=== PATIENT | female | born 1965 | race Caucasian/White ===

== ENCOUNTER 2017-02-20 10:34 | Emergency (ER) | payer OTHER ==
[~2017-02-20] VITALS: Ht 160 cm; Wt 59.0 kg
[~2017-02-20 10:34] MED LIST: ALPR0.25 PO; AMLO5TAB4 PO; ATEN50TA PO; BSP10T; BSP10T PO; LEVO500T69 PO; LORA0.5T PO; LORA1TAB; LOSA100T28 PO; PNT40TEC PO; SCR1T1 PO
--- NOTE | 2017-02-20 11:15 | ED Integumentary General ---
General Chief Complaint: Skin/Wound Problems Stated Complaint: POSSIBLE SPIDER BITE Nursing Triage Note: AMB TO ROOM REPORTS ON SUNDAY WOKE UP SPIDER ON CHEST THOUGHT IT TO BE N A BROWN RECLUSE SPIDER KNOCKED IT OFF HER CHEST. SUNDAY FELT LIKE L EYE HAD A STYE IN IT . TODAY WOKE UP NOT FEELING WELL WITH BODY ACHES,DIARHEA, INCREASE SWELLING IN EYE. Source: patient Exam Limitations: no limitations History of Present Illness Time seen by provider: 11:15 Initial Comments 51 yo female patient presents to the ED with c/o left eye swelling, redness, and pain beginning yesterday. Patient states she woke up sunday with a spider on her chest. today awoke with generalized body aches, diarrhea, low grade fever, and increased swelling of the left eye. Location Injury Occurred: denies known injury Timing/Duration: yesterday, getting worse Location: face (left eye) Possible Cause: no cause identified ((had a spider on her chest Sunday, but unsure if she was bitten)) Modifying Factors: worse with other (worse with palpation) Associated Symptoms: No blisters, No edema, fever, No flushing, headache, No hives, No jaundice, malaise, No nasal congestion, No numbness, No paresthesia, No petechiae, No rash, swelling/mass/lumps (swelling left eyelid) Allergies and Home Medications Allergies Coded Allergies: erythromycin base (Unverified Allergy, Mild, 03/23/09) Sulfa (Sulfonamide Antibiotics) (Verified Allergy, Unknown, 06/30/16) Home Medications Alprazolam 0.25 Mg Tablet, 0.25 MG PO QID PRN for ANXIETY, #10 Prescribed by: HAWA HOGN on 06/30/16 1146 Atenolol 50 Mg Tablet, 50 MG PO DAILY, (Reported) Losartan Potassium 100 Mg Tablet, 100 MG PO BID, (Reported) Ondansetron 8 Mg Tab.rapdis, 8 MG PO Q6H PRN for NAUSEA/VOMITING-1ST LINE, #10 Ref 0 Prescribed by: CHERRIE MOREL on 02/20/17 1325 Sulfamethoxazole/Trimethoprim 1 Each Tablet, 1 EACH PO BID, #14 Ref 0 Prescribed by: CHERRIE MOREL on 02/20/17 1510 Constitutional: chills, dizziness, fever, malaise, weakness (generalized fatigue/weakness) EENTM: eye pain (left eyelid), other (matted left eye this AM), see HPI, No ear pain, No mouth pain, No mouth swelling, No nose congestion, No throat pain, No throat swelling, No vision loss Respiratory: No cough, No phlegm, No short of breath Cardiovascular: no symptoms reported Gastrointestinal: No abdominal pain, No constipation, diarrhea, No jaundice, loss of appetite, No nausea, No vomiting Genitourinary: No decreased output, No dysuria, No frequency, No hematuria, No pain Musculoskeletal: No joint pain, muscle pain ((has had 2 months of upper extremity muscle aches)), No neck pain Skin: see HPI Psychiatric/Neurological: See HPI All Other Systems Reviewed Negative Unless Noted: Yes (Negative excepted noted.) Past [id number] Hx Patient Social History Alcohol Use: Occasionally Uses Recreational Drug Use: No Smoking Status: Current Everyday Smoker Recent Foreign Travel: No Contact w/Someone Who Travel: No Recent Infectious Disease Expo: No Recent Hopitalizations: Yes (lap appy, lap choley, Aneurysm repair) Surgeries HX Surgeries: Yes (Aneurysm repair) Surgeries: Adenoidectomy, Appendectomy, Gallbladder, Hysterectomy, Tonsillectomy, Vascular Surgery Respiratory Hx Respiratory Disorders: No Cardiovascular Hx Cardiac Disorders: Yes (AAA) Cardiac Disorders: Aneurysm, Hypertension Neurological Hx Neurological Disorders: No Reproductive System Hx Reproductive Disorders: No Genitourinary Hx Genitourinary Disorders: No Gastrointestinal Hx Gastrointestinal Disorders: No Musculoskeletal Hx Musculoskeletal Disorders: No Endocrine Hx Endocrine Disorders: No HEENT HX ENT Disorders: No Cancer Hx Cancer: No Psychosocial Hx Psychiatric Problems: Yes (alcohol dependence, anxiety) Behavioral Health Disorders: Anxiety Blood Transfusions Hx Blood Disorders: No Reviewed Nursing Assessment Reviewed/Agree w Nursing PMH: Yes Family Medical History Significant Family History: Cancer Physical Exam Vital Signs Vital Sign - Last 12Hours 02/20/17 10:50 Temp 99.0 Pulse 86 Resp 18 B/P (MAP) 176/111 Pulse Ox 98 O2 Delivery Room Air Capillary Refill : Greater Than 3 Seconds General Appearance: WD/WN, no apparent distress HEENT: PERRL/EOMI, pharynx normal, other (left upper lid swollen with mild erythema and tenderness.) Neck: non-tender, full range of motion, supple, normal inspection Cardiovascular: normal peripheral pulses, regular rate, rhythm, no edema, no murmur Respiratory: lungs clear, normal breath sounds, no respiratory distress Gastrointestinal: normal bowel sounds, non tender, soft, no organomegaly, No distended Back: normal inspection Extremities: no pedal edema, normal capillary refill Neurologic/Psychiatric: alert, normal mood/affect, oriented x 3 Skin: normal color, warm/dry, other (left upper lid swollen with mild erythema and tenderness.) Skin Problem Location: other (left upper lid) Skin Problem Character: erythema, swelling, tenderness Progress/Results/Core Measures Results/Orders Lab Results Laboratory Tests Test 02/20/17 12:10 02/20/17 14:22 Range/Units White Blood Count 9.4 4.3-11.0 10^3/uL Red Blood Count 5.59 4.35-5.85 10^6/uL Hemoglobin 17.0 H 11.5-16.0 G/DL Hematocrit 50 35-52 % Mean Corpuscular Volume 90 80-99 FL Mean Corpuscular Hemoglobin 30 25-34 PG Mean Corpuscular Hemoglobin Concent 34 32-36 G/DL Red Cell Distribution Width 14.2 10.0-14.5 % Platelet Count 259 130-400 10^3/uL Mean Platelet Volume 10.0 7.4-10.4 FL Neutrophils (%) (Auto) 71 42-75 % Lymphocytes (%) (Auto) 21 12-44 % Monocytes (%) (Auto) 6 0-12 % Eosinophils (%) (Auto) 1 0-10 % Basophils (%) (Auto) 1 0-10 % Neutrophils # (Auto) 6.7 1.8-7.8 X 10^3 Lymphocytes # (Auto) 2.0 1.0-4.0 X 10^3 Monocytes # (Auto) 0.6 0.0-1.0 X 10^3 Eosinophils # (Auto) 0.1 0.0-0.3 10^3/uL Basophils # (Auto) 0.1 0.0-0.1 10^3/uL Erythrocyte Sedimentation Rate 1 0-30 MM/HR Urine Color YELLOW Urine Clarity SLIGHTLY CLOUDY Urine pH 7 5-9 Urine Specific [place] 1.010 L 1.016-1.022 Urine Protein NEGATIVE NEGATIVE Urine Glucose (UA) NEGATIVE NEGATIVE Urine Ketones NEGATIVE NEGATIVE Urine Nitrite NEGATIVE NEGATIVE Urine Bilirubin NEGATIVE NEGATIVE Urine Urobilinogen NORMAL NORMAL MG/DL Urine Leukocyte Esterase NEGATIVE NEGATIVE Urine RBC (Auto) NEGATIVE NEGATIVE Urine RBC NONE /HPF Urine WBC NONE /HPF Urine Squamous Epithelial Cells 5-10 /HPF Urine Crystals NONE /LPF Urine Bacteria TRACE /HPF Urine Casts NONE /LPF Urine Mucus NEGATIVE /LPF Urine Culture Indicated NO Sodium Level 140 135-145 MMOL/L Potassium Level 4.4 3.6-5.0 MMOL/L Chloride Level 105 98-107 MMOL/L Carbon Dioxide Level 29 21-32 MMOL/L Anion Gap 6 5-14 MMOL/L Blood Urea Nitrogen 9 7-18 MG/DL Creatinine 0.78 0.60-1.30 MG/DL Estimat Glomerular Filtration Rate > 60 BUN/Creatinine Ratio 12 0-20 Glucose Level 110 H 70-105 MG/DL Calcium Level 9.9 8.5-10.1 MG/DL Total Bilirubin 0.8 0.1-1.0 MG/DL Aspartate Amino Transf (AST/SGOT) 18 5-34 U/L Alanine Aminotransferase (ALT/SGPT) 18 0-55 U/L Alkaline Phosphatase 178 H 40-136 U/L C-Reactive Protein High Sensitivity 0.11 0.00-0.50 MG/DL Total Protein 7.6 6.4-8.2 GM/DL Albumin 4.9 H 3.2-4.5 GM/DL Prothrombin Time 12.1 L 12.2-14.7 SEC INR Comment 0.9 0.8-1.4 Activated Partial Thromboplast Time 27 24-35 SEC Magnesium Level 2.2 1.8-2.4 MG/DL Myoglobin 32.3 10.0-92.0 NG/ML Troponin I < 0.30 <0.30 NG/ML My Orders Orders - CHERRIE MOREL Saline Lock/Iv-Start (02/20/17 11:21) Cbc With Automated Diff (02/20/17 11:21) Comprehensive Metabolic Panel (02/20/17 11:21) Hs C Reactive Protein (02/20/17 11:21) Ua Culture If Indicated (02/20/17 11:21) Erythrocyte Sedimentation Rate (02/20/17 11:21) Ns Iv 1000 Ml (Sodium Chloride 0.9%) (02/20/17 11:21) Ketorolac Injection (Toradol Injection) (02/20/17 11:21) Dipht,Pertuss(Acell),Tet Adult (Boostrix (02/20/17 11:35) Morphine Injection (Morphine Injection (02/20/17 12:46) Clindamycin Injection (Cleocin Injection (02/20/17 13:00) Ondansetron Injection (Zofran Injectio (02/20/17 13:30) Magnesium (02/20/17 13:56) Chest 1 View, Ap/Pa Only (02/20/17 13:56) Ekg Tracing (02/20/17 13:56) Cardiac Profile 1 (02/20/17 13:56) Myoglobin Serum (02/20/17 13:56) Protime With Inr (02/20/17 13:56) Partial Thromboplastin Time (02/20/17 13:56) Monitor-Rhythm Ecg Trace Only (02/20/17 13:56) Rx-Gentamicin Ophth Soln (Rx-Gentamicin (02/20/17 15:17) Medications Given in ED Current Medications Medications Dose Ordered Sig/Brigid Route Start Time Stop Time Status Last Admin Dose Admin Clindamycin Phosphate 900 mg/ Sodium Chloride 56 ml @ 100 mls/hr ONCE ONCE IV 02/20/17 13:00 02/20/17 13:33 DC 02/20/17 13:00 100 MLS/HR Ondansetron HCl 8 mg ONCE ONCE IVP 02/20/17 13:30 02/20/17 13:31 DC 02/20/17 13:30 8 MG Sodium Chloride 1,000 ml @ 0 mls/hr Q0M ONCE IV 02/20/17 11:21 02/20/17 11:24 DC 02/20/17 12:10 1,000 MLS/HR Vital Signs/I&O Vital Sign - Last 12Hours 02/20/17 10:50 Temp 99.0 Pulse 86 Resp 18 B/P (MAP) 176/111 Pulse Ox 98 O2 Delivery Room Air Blood Pressure Mean: 132 ECG Initial ECG Impression Date: Feb 20, 2017 Initial ECG Impression Time: 13:35 Initial ECG Rhythm: Normal Sinus Initial ECG Intervals: Normal Initial ECG Comparisson: Unchanged Comment Sinus rhythm. No STEMI or arrhythmia. ECG reviewed and discussed with Dr. Cruz. Diagnostic Imaging Diagonstic Imaging: Xray Plain Films/CT/US/NM/MRI: chest Comments FINDINGS: The lungs are hyperinflated with mild interstitial scarring, more prominent in the lung bases. This is similar to the 03/03/2016 radiograph. The heart size is at the upper limits of normal. No effusion or pneumothorax. The mediastinum and angelito appear unremarkable. IMPRESSION: COPD. Borderline cardiac size. Dictated on workstation # [id number] Reviewed: Reviewed by Me (radiology report reviewed by me.) Departure Communication Progress Notes laboratory findings discussed with the patient. Patient states her headache is now a 4/10 and would like something else for her headache. Patient given morphine 6 mg IV and cleocin 900 mg IV for the left eyelid. While the cleocin was infusing, the patient began c/o epigastric pain, nausea, and mild heartburn. Pain then radiated into the chest. Patient was noted to start hyperventilating and anxious. ECG, CXR and cardiac enzymes were obtained. Patient was able to vomit and burp with immediate resolution of symptoms. Patient case discussed with Dr[facility] Rosalba Jean [facility]u [facility] an outpatient at [facility]. Patient instructed to contact the office for appointment time. All return precautions were discussed with the patient as described in the [facility] instructions of this report. Patient voices understanding and agrees with the treatment plan. Patient case discussed with Dr. Cruz, he agrees with the plan of care. Impression Impression: Primary Impression: Diarrhea Qualified Codes: R19.7 - Diarrhea, unspecified Additional Impressions: Sty, external Qualified Codes: H00.014 - Hordeolum externum left upper eyelid Adverse drug reaction Qualified Codes: T88.7XXA - Unspecified adverse effect of drug or medicament, initial encounter Disposition: HOME, SELF-CARE Condition: Improved Departure-Patient Inst. Decision time for Depature: 12:50 Referrals: NO,LOCAL PHYSICIAN (PCP/Family) Primary Care Physician Patient Instructions: Spider Bites, Stye (Hordeolum) Add. Discharge Instructions: All discharge instructions reviewed with patient and/or family. Voiced understanding. Medications as instructed. Tylenol extra strength over the counter as directed for pain. Motrin 800 mg by mouth every 8 hours as needed for pain. Ice packs or warm packs as needed. Cleanse the eye with no tears baby shampoo and a clean warm cloth twice daily and as needed. Follow-up with your family practitioner for recheck. Call for appointment time. Return to the emergency department for increased fever, swelling, vomiting, rectal bleeding, abdominal pain, headache, shortness of breath, difficulty swallowing, or any other concerns. 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
[2017-02-20] MEDS ORDERED: KETOROLAC 30 MG/ML VIAL IVP STA (11:21)
[2017-02-20] MEDS ORDERED: NS IV 1000 ML 1,000 ML IV ONE (11:21)
[2017-02-20] MEDS ORDERED: TETANUS,DIPTH,PERTUSS P/F (BOOSTRIX) 0.5 ML VIAL IM STA (11:35)
[2017-02-20 12:22] LABS: BILIRUBIN,URINE NEGATIVE (NEGATIVE); KETONES,URINE NEGATIVE (NEGATIVE); LEUKOCYTE ESTERASE ,URINE NEGATIVE (NEGATIVE); NITRITE,URINE NEGATIVE (NEGATIVE); PH,URINE 7 (5-9); PROTEIN,URINE NEGATIVE (NEGATIVE); UROBILINOGEN,URINE NORMAL (NORMAL)
[2017-02-20 12:23] LABS: BASOPHILS # (AUTO) 0.1 10^3/uL (0.0-0.1); BASOPHILS % (AUTO) 1 % (0-10); EOSINOPHILS # (AUTO) 0.1 10^3/uL (0.0-0.3); EOSINOPHILS % (AUTO) 1 % (0-10); LYMPHOCYTES % (AUTO) 21 % (12-44); MEAN CORPUSCULAR HEMOGLOBIN 30 PG (25-34); MEAN CORPUSCULAR HGB CONC 34 G/DL (32-36); MEAN CORPUSCULAR VOLUME 90 FL (80-99); MONOCYTES # (AUTO) 0.6 X 10^3 (0.0-1.0); MONOCYTES % (AUTO) 6 % (0-12); NEUTROPHILS # (AUTO) 6.7 X 10^3 (1.8-7.8); NEUTROPHILS % (AUTO) 71 % (42-75); PLATELET COUNT 259 10^3/uL (130-400); RED BLOOD COUNT 5.59 10^6/uL (4.35-5.85); RED CELL DISTRIBUTION WIDTH 14.2 % (10.0-14.5); WHITE BLOOD COUNT 9.4 10^3/uL (4.3-11.0)
[2017-02-20 12:42] LABS: ALANINE AMINOTRANSFERASE 18 U/L (0-55); ALBUMIN 4.9 GM/DL (3.2-4.5); ANION GAP 6 MMOL/L (5-14); ASPARTATE AMINO TRANSFERASE 18 U/L (5-34); BILIRUBIN,TOTAL 0.8 MG/DL (0.1-1.0); BLOOD UREA NITROGEN 9 MG/DL (7-18); BUN/CREATININE RATIO 12 (0-20); CALCIUM 9.9 MG/DL (8.5-10.1); CARBON DIOXIDE 29 MMOL/L (21-32); CHLORIDE 105 MMOL/L (98-107); CREATININE SERUM 0.78 MG/DL (0.60-1.30); ERYTHROCYTE SEDIMENTATION RATE 1 MM/HR (0-30); GFR ESTIMATED > 60; GLUCOSE 110 MG/DL (70-105); POTASSIUM 4.4 MMOL/L (3.6-5.0); SODIUM 140 MMOL/L (135-145); TOTAL PROTEIN 7.6 GM/DL (6.4-8.2)
[2017-02-20 12:43] LABS: hs C REACTIVE PROTEIN 0.11 MG/DL (0.00-0.50)
[2017-02-20] MEDS ORDERED: morphine INJ 10 MG/ML 1ML (SYR OR VIAL) IVP STA (12:46)
[2017-02-20] MEDS ORDERED: CLIN300C11 PO (12:55)
[2017-02-20] MEDS ORDERED: CLINDAMYCIN INJECTION 900 MG in NS (IVPB) 50 ML IV ONE (13:00)
[2017-02-20] MEDS ORDERED: ONDA8TAB13 PO (13:25)
[2017-02-20] MEDS ORDERED: ONDANSETRON 4 MG/2 ML (SDV) Z0FRAN IVP ONE (13:30)
--- NOTE | 2017-02-20 14:32 | Diagnostic Imaging Report ---
EXAMINATION: Portable upright radiograph of the chest. INDICATION: Chest pain. FINDINGS: The lungs are hyperinflated with mild interstitial scarring, more prominent in the lung bases. This is similar to the 03/03/2016 radiograph. The heart size is at the upper limits of normal. No effusion or pneumothorax. The mediastinum and angelito appear unremarkable. IMPRESSION: COPD. Borderline cardiac size. Dictated by: Dictated on workstation # [id number]
[2017-02-20 14:40] LABS: INR 0.9 (0.8-1.4); PROTHROMBIN TIME PATIENT 12.1 SEC (12.2-14.7)
[2017-02-20 14:42] LABS: MAGNESIUM 2.2 MG/DL (1.8-2.4)
[2017-02-20 14:55] LABS: MYOGLOBIN SERUM 32.3 NG/ML (10.0-92.0)
[2017-02-20] MEDS ORDERED: SULF1TAB35 PO (15:10)
[2017-02-20] MEDS ORDERED: RX-GENTAMICIN SULFATE 0.3% OP 5 ML BTL OS STA (15:17)
[2017-02-20 15:28] VITALS: BP 146/98
== END 2017-02-20 15:28 | disposition home or self-care (01) ==
LOC: EDUNIT# 10:34 → ER 10:36
DX: H00.014 Hordeolum externum left upper eyelid (principal); T50.905A Adverse effect of unspecified drugs, medicaments and biological substances, initial encounter; R19.7 Diarrhea, unspecified; I10 Essential (primary) hypertension; F17.210 Nicotine dependence, cigarettes, uncomplicated
CPT/HCPCS: 36415; 71010; 80053; 81000; 83735; 83874; 84484; 85025; 85610; 85652; 85730; 86141; 90715; 93005; 93041

== ENCOUNTER → 2017-05-15 | Outpatient (CLI) | payer OTHER ==
[~2017-05-15] MED LIST changes: +CLIN300C11 PO; +ONDA8TAB13 PO; +SULF1TAB35 PO
--- NOTE | 2017-05-15 12:53 | Diagnostic Imaging Report ---
INDICATION: Screening. The current study was also evaluated with a Computer Aided Detection (CAD) system. COMPARISON: No prior examinations are available for comparison. FINDINGS: There is a moderate amount of residual fibroglandular tissue bilaterally. There are a few benign-type calcifications. There is no dominant mass, spiculated lesion, or suspicious calcification identified. The skin, nipples, and axillae are unremarkable. IMPRESSION: Benign. ACR BI-RADS Category 2: Benign findings. Result letter will be mailed to the patient. Note: At least 10% of breast cancer is not imaged by mammography. Dictated by: Dictated on workstation # [id number]
== END ==
LOC: RAD 11:28
PROVIDERS: ATTEND Nurse Practitioner Family
DX: Z12.31 Encounter for screening mammogram for malignant neoplasm of breast (principal)
CPT/HCPCS: 77067

== ENCOUNTER 2017-08-31 18:25 | Emergency (ER) | payer SELFPAY ==
[~2017-08-31] VITALS: Ht 160 cm; Wt 62.3 kg
[2017-08-31 18:45] LABS: BASOPHILS # (AUTO) 0.1 10^3/uL (0.0-0.1); BASOPHILS % (AUTO) 1 % (0-10); EOSINOPHILS # (AUTO) 0.1 10^3/uL (0.0-0.3); EOSINOPHILS % (AUTO) 1 % (0-10); LYMPHOCYTES # (AUTO) 2.4 X 10^3 (1.0-4.0); LYMPHOCYTES % (AUTO) 23 % (12-44); MEAN CORPUSCULAR HEMOGLOBIN 33 PG (25-34); MEAN CORPUSCULAR HGB CONC 35 G/DL (32-36); MEAN CORPUSCULAR VOLUME 93 FL (80-99); MEAN PLATELET VOLUME 9.4 FL (7.4-10.4); MONOCYTES # (AUTO) 0.8 X 10^3 (0.0-1.0); MONOCYTES % (AUTO) 8 % (0-12); NEUTROPHILS % (AUTO) 67 % (42-75); PLATELET COUNT 261 10^3/uL (130-400); RED BLOOD COUNT 4.99 10^6/uL (4.35-5.85); RED CELL DISTRIBUTION WIDTH 13.9 % (10.0-14.5); WHITE BLOOD COUNT 10.4 10^3/uL (4.3-11.0)
[2017-08-31 18:56] LABS: INR 0.9 (0.8-1.4); PROTHROMBIN TIME PATIENT 12.6 SEC (12.2-14.7)
[2017-08-31 19:09] LABS: ALANINE AMINOTRANSFERASE 30 U/L (0-55); ALBUMIN 4.7 GM/DL (3.2-4.5); ANION GAP 17 MMOL/L (5-14); ASPARTATE AMINO TRANSFERASE 28 U/L (5-34); BILIRUBIN,TOTAL 0.6 MG/DL (0.1-1.0); BLOOD UREA NITROGEN 16 MG/DL (7-18); BUN/CREATININE RATIO 21; CALCIUM 9.5 MG/DL (8.5-10.1); CARBON DIOXIDE 16 MMOL/L (21-32); CHLORIDE 101 MMOL/L (98-107); CREATININE SERUM 0.76 MG/DL (0.60-1.30); GFR ESTIMATED > 60; GLUCOSE 104 MG/DL (70-105); MAGNESIUM 2.1 MG/DL (1.8-2.4); POTASSIUM 3.6 MMOL/L (3.6-5.0); SODIUM 134 MMOL/L (135-145); TOTAL PROTEIN 7.4 GM/DL (6.4-8.2)
--- NOTE | 2017-08-31 19:12 | Diagnostic Imaging Report ---
INDICATION: Fall, chest pain. COMPARISON: 02/20/2017. EXAMINATION: Single view of the chest demonstrates clear lungs, bilaterally. FINDINGS: The heart is prominent but stable. There is no pneumothorax, effusion or infiltrate. Osseous structures are normal. IMPRESSION: No acute cardiopulmonary findings. Dictated by: Dictated on workstation # [id number]
--- NOTE | 2017-08-31 19:13 | Diagnostic Imaging Report ---
PROCEDURE: CT thoracic spine without contrast. TECHNIQUE: Multiple axial computerized tomography images were obtained from the base of the thoracic spine to the vertex without intravenous contrast. INDICATION: Fall, back pain COMPARISON: None FINDINGS: The alignment is normal. There is no subluxation or fracture. Visualized ribs are grossly unremarkable. There is no pneumothorax. No paraspinous mass is identified. IMPRESSION: No traumatic malalignment or fracture. Dictated by: Dictated on workstation # [id number]
--- NOTE | 2017-08-31 19:15 | Diagnostic Imaging Report ---
PROCEDURE: CT head and CT cervical spine without contrast. TECHNIQUE: Multiple contiguous axial images were obtained through the brain and cervical spine without the use of intravenous contrast. Sagittal and coronal reformations through the cervical spine were then performed. INDICATION: Fall, head and neck pain COMPARISON: CT head 03/03/2016 CT head: Ventricles are normal in size, shape, and position. There is no midline shift or mass effect. There is no hemorrhage or evidence of acute ischemia. There is no skull fracture. Visualized paranasal sinuses and mastoids are clear. IMPRESSION: Negative CT head. CT cervical spine: Alignment is normal. There is no subluxation or fracture. Minimal degenerative changes are present. There is no paraspinous mass. IMPRESSION: 1. No traumatic malalignment or fracture. 2. Not mentioned above, right thyroid cyst. This could be further evaluated with ultrasound on a nonemergent basis. Dictated by: Dictated on workstation # [id number]
[2017-08-31 19:16] LABS: MYOGLOBIN SERUM 225.3 NG/ML (10.0-92.0)
--- NOTE | 2017-08-31 19:20 | ED Syncope ---
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 She remembers sitting on the couch with her cat when she became lightheaded and experienced racing heart palpitations. She then awoke on the kitchen floor but has no recollection of how she got there. She woke with upper back and neck pain. EMS was activated to the home. After waking she had heavy vomiting. She is no longer nauseous. She denies any chest pain at any time. She has been alert and oriented for EMS. First responders reported fingerstick blood sugar was 47. However, she was alert and oriented. She was immediately checked again after receiving oral glucose and was 147. First responders questioned their accuracy in the first measurement. Patient is not a diabetic. Fingerstick blood sugar on arrival was 112. Patient reports drinking 1 and 1/2 beers tonight which is usual for her. She is accustomed to drinking 2-4 beers per day. She has hypertension for which she takes atenolol and losartan. She has no other known health problems. She reports having one episode of syncope in 2010 after which she had a cardiac catheterization. 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 That study showed no significant abnormalities. C-collar was applied by emergency personnel. Allergies and Home Medications Allergies Coded Allergies: erythromycin base (Unverified Allergy, Mild, 03/23/09) Sulfa (Sulfonamide Antibiotics) (Verified Allergy, Unknown, 06/30/16) Home Medications Alprazolam 0.25 Mg Tablet, 0.25 MG PO QID PRN for ANXIETY, #10 Prescribed by: HAWA HONG on 06/30/16 1146 Atenolol 50 Mg Tablet, 50 MG PO DAILY, (Reported) Cephalexin 500 Mg Capsule, 500 MG PO QID, #28 Prescribed by: HAWA HONG on 08/31/172057 Losartan Potassium 100 Mg Tablet, 100 MG PO BID, (Reported) Ondansetron 8 Mg Tab.rapdis, 8 MG PO Q6H PRN for NAUSEA/VOMITING-1ST LINE, #10 Ref 0 Prescribed by: CHERRIE MOREL on 02/20/17 1325 Sulfamethoxazole/Trimethoprim 1 Each Tablet, 1 EACH PO BID, #14 Ref 0 Prescribed by: CHERRIE MOREL on 02/20/17 1510 Constitutional: no symptoms reported EENTM: see HPI Respiratory: no symptoms reported Cardiovascular: see HPI Gastrointestinal: see HPI Genitourinary: no symptoms reported : No Musculoskeletal: see HPI Skin: no symptoms reported Psychiatric/Neurological: No Symptoms Reported Past Ynnwmke-Zpcyvm-Mbbpov Hx Patient Social History Alcohol Use: Occasionally Uses Number of Drinks Today: AA Alcohol Beverage of Choice: Beer Recreational Drug Use: No Smoking Status: Current Everyday Smoker Type Used: Cigarettes Recent Foreign Travel: No Contact w/Someone Who Travel: No Recent Infectious Disease Expo: No Recent Hopitalizations: Yes (lap appy, lap choley, Aneurysm repair) Physical Abuse: No Sexual Abuse: No Surgeries History of Surgeries: Yes (Aneurysm repair) Surgeries: Adenoidectomy, Appendectomy, Gallbladder, Hysterectomy, Tonsillectomy, Vascular Surgery Respiratory History of Respiratory Disorde: No Cardiovascular History of Cardiac Disorders: Yes (AAA) Cardiac Disorders: Aneurysm, Hypertension, Syncope Neurological History of Neurological Disord: No Reproductive System Hx Reproductive Disorders: No Genitourinary History of Genitourinary Disor: No Gastrointestinal History of Gastrointestinal Di: No Musculoskeletal History of Musculoskeletal Dis: No Endocrine History of Endocrine Disorders: No HEENT History of HEENT Disorders: No Cancer History of Cancer: No Psychosocial History of Psychiatric Problem: Yes (alcohol dependence, anxiety) Behavioral Health Disorders: Anxiety Suicide Risk Score: 0 Blood Transfusions History of Blood Disorders: No Family Medical History Significant Family History: Cancer Physical Exam Vital Signs Vital Sign - Last 12Hours 08/31/17 08/31/17 18:28 21:24 Temp 97.4 Pulse 72 Resp 24 B/P (MAP) 141/91 (108) Pulse Ox 93 O2 Delivery Room Air Capillary Refill : Less Than 3 Seconds General Appearance: No Apparent Distress, WD/WN HEENT: PERRL/EOMI, Normal ENT Inspection, Pharynx Normal Neck: Normal Inspection, Non Tender, Supple, Other (In c-collar) Cardiovascular: Regular Rate, Rhythm, No Edema, No Murmur, Normal Peripheral Pulses Respiratory: Lungs Clear, Normal Breath Sounds, No Accessory Muscle Use, No Respiratory Distress Gastrointestinal: Normal Bowel Sounds, No Pulsatile Mass, Non Tender, Soft Back: Normal Inspection, Vertebral Tenderness (Thoracic spine) Extremities: Normal Capillary Refill, Normal Inspection, No Pedal Edema Neurologic/Psychiatric: Alert, Oriented x3, No Motor/Sensory Deficits, Normal 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, 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 as 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 Cranial Nerves: Normal Hearing, Normal Speech, PERRL Motor/Sensory: No Motor Deficit, No Sensory Deficit Skin: Normal Color, Warm/Dry Progress/Results/Core Measures Results/Orders Lab Results Laboratory Tests Test 08/31/17 18:30 08/31/17 18:33 08/31/17 19:30 Range/Units Glucometer 112 H 70-110 MG/DL White Blood Count 10.4 4.3-11.0 10^3/uL Red Blood Count 4.99 4.35-5.85 10^6/uL Hemoglobin 16.3 H 11.5-16.0 G/DL Hematocrit 46 35-52 % Mean Corpuscular Volume 93 80-99 FL Mean Corpuscular Hemoglobin 33 25-34 PG Mean Corpuscular Hemoglobin Concent 35 32-36 G/DL Red Cell Distribution Width 13.9 10.0-14.5 % Platelet Count 261 130-400 10^3/uL Mean Platelet Volume 9.4 7.4-10.4 FL Neutrophils (%) (Auto) 67 42-75 % Lymphocytes (%) (Auto) 23 12-44 % Monocytes (%) (Auto) 8 0-12 % Eosinophils (%) (Auto) 1 0-10 % Basophils (%) (Auto) 1 0-10 % Neutrophils # (Auto) 7.0 1.8-7.8 X 10^3 Lymphocytes # (Auto) 2.4 1.0-4.0 X 10^3 Monocytes # (Auto) 0.8 0.0-1.0 X 10^3 Eosinophils # (Auto) 0.1 0.0-0.3 10^3/uL Basophils # (Auto) 0.1 0.0-0.1 10^3/uL Prothrombin Time 12.6 12.2-14.7 SEC INR Comment 0.9 0.8-1.4 Activated Partial Thromboplast Time 27 24-35 SEC Sodium Level 134 L 135-145 MMOL/L Potassium Level 3.6 3.6-5.0 MMOL/L Chloride Level 101 98-107 MMOL/L Carbon Dioxide Level 16 L 21-32 MMOL/L Anion Gap 17 H 5-14 MMOL/L Blood Urea Nitrogen 16 7-18 MG/DL Creatinine 0.76 0.60-1.30 MG/DL Estimat Glomerular Filtration Rate > 60 BUN/Creatinine Ratio 21 Glucose Level 104 70-105 MG/DL Calcium Level 9.5 8.5-10.1 MG/DL Magnesium Level 2.1 1.8-2.4 MG/DL Total Bilirubin 0.6 0.1-1.0 MG/DL Aspartate Amino Transf (AST/SGOT) 28 5-34 U/L Alanine Aminotransferase (ALT/SGPT) 30 0-55 U/L Alkaline Phosphatase 152 H 40-136 U/L Myoglobin 225.3 H 10.0-92.0 NG/ML Troponin I < 0.30 <0.30 NG/ML Total Protein 7.4 6.4-8.2 GM/DL Albumin 4.7 H 3.2-4.5 GM/DL TSH [place] Testing 1.78 0.35-4.94 UIU/ML Serum Alcohol 19 H <10 MG/DL Urine Color YELLOW Urine Clarity CLEAR Urine pH 6 5-9 Urine Specific [place] 1.015 L 1.016-1.022 Urine Protein 1+ H NEGATIVE Urine Glucose (UA) NEGATIVE NEGATIVE Urine Ketones NEGATIVE NEGATIVE Urine Nitrite NEGATIVE NEGATIVE Urine Bilirubin NEGATIVE NEGATIVE Urine Urobilinogen NORMAL NORMAL MG/DL Urine Leukocyte Esterase 1+ H NEGATIVE Urine RBC (Auto) NEGATIVE NEGATIVE Urine RBC NONE /HPF Urine WBC 10-25 H /HPF Urine Squamous Epithelial Cells 5-10 /HPF Urine Crystals NONE /LPF Urine Bacteria FEW H /HPF Urine Casts PRESENT /LPF Urine Hyaline Casts 10-25 H /LPF Urine Mucus SMALL H /LPF Urine Culture Indicated YES Urine Opiates Screen NEGATIVE NEGATIVE Urine Oxycodone Screen NEGATIVE NEGATIVE Urine Methadone Screen NEGATIVE NEGATIVE Urine Propoxyphene Screen NEGATIVE NEGATIVE Urine Barbiturates Screen NEGATIVE NEGATIVE Ur Tricyclic Antidepressants Screen NEGATIVE NEGATIVE Urine Phencyclidine Screen NEGATIVE NEGATIVE Urine Amphetamines Screen NEGATIVE NEGATIVE Urine Methamphetamines Screen NEGATIVE NEGATIVE Urine Benzodiazepines Screen NEGATIVE NEGATIVE Urine Cocaine Screen NEGATIVE NEGATIVE Urine Cannabinoids Screen POSITIVE H NEGATIVE My Orders Orders - HAWA LU MD Ct Head/Cervical Spine Wo (08/31/17 18:40) Ct Thoracic Spine Wo (08/31/17 18:40) Cbc With Automated Diff (08/31/17 18:40) Magnesium (08/31/17 18:40) Chest 1 View, Ap/Pa Only (08/31/17 18:40) Ekg Tracing (08/31/17 18:40) Cardiac Profile 1 (08/31/17 18:40) Comprehensive Metabolic Panel (08/31/17 18:40) Myoglobin Serum (08/31/17 18:40) Protime With Inr (08/31/17 18:40) Partial Thromboplastin Time (08/31/17 18:40) O2 (08/31/17 18:40) Monitor-Rhythm Ecg Trace Only (08/31/17 18:40) Saline Lock/Iv-Start (08/31/17 18:40) Alcohol (08/31/17 18:40) Drug Screen Stat (Urine) (08/31/17 18:40) Thyroid Analyzer (08/31/17 18:40) Ua Culture If Indicated (08/31/17 18:40) Ketorolac Injection (Toradol Injection) (08/31/17 19:30) Orphenadrine Injection (Norflex Injectio (08/31/17 19:30) Urine Culture (08/31/17 19:30) Ns Iv 1000 Ml (Sodium Chloride 0.9%) (08/31/17 20:03) Cephalexin Capsule (Keflex Capsule) (08/31/17 21:00) Medications Given in ED Vital Signs/I&O Vital Sign - Last 12Hours 08/31/17 08/31/17 08/31/17 18:28 20:20 21:24 Temp 97.4 97.3 Pulse 72 62 67 61 63 Resp 24 18 B/P (MAP) 141/91 (108) 138/75 (96) 135/84 (101) 125/82 (96) Pulse Ox 93 98 O2 Delivery Room Air Intake and Output 09/01/17 00:00 Intake Total 1000 ml Balance 1000 ml Blood Pressure Mean: 108 Point of Care Testing Finger Stick Blood Glucose: 112 Blood Glucose Action Taken: RN NOTIFIED Progress Note : Progress Note The exact cause of patient's syncope is uncertain. Multiple problems are identified including treating UTI and probable mild hypovolemia. Patient also has regular consumption of alcohol and marijuana which may contribute. Workup was otherwise unremarkable. Patient experienced no further palpitations or syncope. Orthostatic pressures were normal. I reviewed the case with Dr. Hutson considers this a significant cardiac event and recommends admission for 24 hours and further evaluation. No beds are available for admission at [facility]. Transfer was recommended to the patient. Patient declined transfer as she is uninsured and did not want to incur an additional hospital and EMS but. Risks of declining admission were reviewed with the patient which included worsening of condition, disability, and even possibly . As an alternative, patient was offered extended observation in the emergency room which would include a 4 hour cardiac rule out with troponin and repeat EKG. Patient declined stating she needed her daughter to take her home and do not want her daughter out later in the freezing rain. Patient ultimately signed out AGAINST MEDICAL ADVICE. She was apologetic and stated she would have stayed if a bed was available in our facility. Patient was treated with Keflex for urinary tract infection. A liter of IV fluids was administered. Pain was treated with Toradol and Norflex. Patient was discharged into the care of her daughter. Thyroid cyst was incidentally noted on CT scans. Patient was advised to follow-up with her primary care provider to obtain a thyroid ultrasound. ECG Initial ECG Impression Date: Aug 31, 2017 Initial ECG Impression Time: 18:36 Initial ECG Rate: 69 Initial ECG Rhythm: Normal Sinus Initial ECG Intervals: Normal Comment Normal sinus rhythm with no ST elevation or depression. No abnormal intervals. Possible LVH by automated read. Diagnostic Imaging Diagonstic Imaging: Xray Plain Films/CT/US/NM/MRI: chest Comments Chest x-ray viewed by me and report reviewed. See report below: NAME: RICHARD NEGRON [facility] REC#: [id number] PT STATUS: REG ER : 1965 PHYSICIAN: HAWA LU MD ADMIT DATE: 08/31/17/ER Signed Date of Exam: 08/31/17 CHEST 1 VIEW, AP/PA ONLY INDICATION: Fall, chest pain. COMPARISON: 02/20/2017. EXAMINATION: Single view of the chest demonstrates clear lungs, bilaterally. FINDINGS: The heart is prominent but stable. There is no pneumothorax, effusion or infiltrate. Osseous structures are normal. IMPRESSION: No acute cardiopulmonary findings. Dictated by: Dictated on workstation # [id number] Dict: 08/31/171908 Trans: 08/31/171935 Interpreted by: EVELYN RECINOS Electronically signed by: EVELYN RECINOS 08/31/171935 Diagonstic Imaging: CT Plain Films/CT/US/NM/MRI: c-spine, head Comments CT head and C-spine report reviewed. See report below: NAME: RICHARD NEGRON [facility] REC#: [id number] PT STATUS: REG ER : 1965 PHYSICIAN: HAWA LU MD ADMIT DATE: 08/31/17/ER Signed Date of Exam: 08/31/17 CT HEAD/CERVICAL SPINE WO PROCEDURE: CT head and CT cervical spine without contrast. TECHNIQUE: Multiple contiguous axial images were obtained through the brain and cervical spine without the use of intravenous contrast. Sagittal and coronal reformations through the cervical spine were then performed. INDICATION: Fall, head and neck pain COMPARISON: CT head 03/03/2016 CT head: Ventricles are normal in size, shape, and position. There is no midline shift or mass effect. There is no hemorrhage or evidence of acute ischemia. There is no skull fracture. Visualized paranasal sinuses and mastoids are clear. IMPRESSION: Negative CT head. CT cervical spine: Alignment is normal. There is no subluxation or fracture. Minimal degenerative changes are present. There is no paraspinous mass. IMPRESSION: 1. No traumatic malalignment or fracture. 2. Not mentioned above, right thyroid cyst. This could be further evaluated with ultrasound on a nonemergent basis. Dictated by: Dictated on workstation # [id number] Dict: 08/31/171909 Trans: 08/31/171935 Interpreted by: EVELYN RECINOS Electronically signed by: EVELYN RECINOS 08/31/171935 Diagonstic Imaging: CT Plain Films/CT/US/NM/MRI: other (Thoracic spine) Comments CT thoracic spine report reviewed. See report below: NAME: RICHARD NEGRON [facility] REC#: [id number] PT STATUS: REG ER : 1965 PHYSICIAN: HAWA LU MD ADMIT DATE: 08/31/17/ER Signed Date of Exam: 08/31/17 CT THORACIC SPINE WO PROCEDURE: CT thoracic spine without contrast. TECHNIQUE: Multiple axial computerized tomography images were obtained from the base of the thoracic spine to the vertex without intravenous contrast. INDICATION: Fall, back pain COMPARISON: None FINDINGS: The alignment is normal. There is no subluxation or fracture. Visualized ribs are grossly unremarkable. There is no pneumothorax. No paraspinous mass is identified. IMPRESSION: No traumatic malalignment or fracture. Dictated by: Dictated on workstation # [id number] Dict: 08/31/171908 Trans: 08/31/171935 Interpreted by: EVELYN RECINOS Electronically signed by: EVELYN RECINOS 08/31/171935 Departure Impression Impression: Primary Impression: Syncope and collapse Additional Impressions: Thyroid cyst Minor head injury Qualified Codes: S00.90XA - Unspecified superficial injury of unspecified part of head, initial encounter Urinary tract infection Qualified Codes: N39.0 - Urinary tract infection, site not specified Skin lesion Disposition: 07 AGAINST MEDICAL ADVICE Condition: Against Medical Advice Departure-Patient Inst. Referrals: BRODY PACE DO (PCP) Primary Care Physician CAROLYN HARLEY (Family) Primary Care Physician Patient Instructions: Syncope (Fainting) (DC), Urinary Tract Infection, Adult ( DC) Add. Discharge Instructions: Drink plenty of clear liquids. Avoid excessive stimulants such as caffeine and excessive alcohol. Avoid any activities that could cause harm should you have another fainting episode. This would include driving, use of heights such as ladders, use of machinery, etc. Follow-up with your primary care provider soon as possible. Call for an appointment tomorrow morning. Return to the emergency room if symptoms worsen or continue. You may take Tylenol ( acetaminophen) up to 1000 g every 6 hours as needed for pain and/or ibuprofen up to 600 mg every 6 hours. All discharge instructions reviewed with patient and/or family. Voiced understanding. Scripts Cephalexin (Keflex) 500 Mg Capsule 500 MG PO QID, #28 CAP Prov: HAWA LU MD 08/31/17 Copy Copies To 1: BRODY PACE JOSHUA T MD Aug 31, 2017 19:20
[2017-08-31] MEDS ORDERED: ORPHENADRINE 60 MG/2 ML (NORFLEX) AMP IV ONE (19:30)
[2017-08-31] MEDS ORDERED: KETOROLAC 30 MG/ML VIAL IVP ONE (19:30)
[2017-08-31 19:49] LABS: BILIRUBIN,URINE NEGATIVE (NEGATIVE); KETONES,URINE NEGATIVE (NEGATIVE); LEUKOCYTE ESTERASE ,URINE 1+ (NEGATIVE); NITRITE,URINE NEGATIVE (NEGATIVE); PH,URINE 6 (5-9); PROTEIN,URINE 1+ (NEGATIVE); UROBILINOGEN,URINE NORMAL (NORMAL)
[2017-08-31] MEDS ORDERED: NS IV 1000 ML 1,000 ML IV ONE (20:03)
[2017-08-31 20:20] VITALS: BP_SYST 125; BP_SYST 135; BP_SYST 138; BP_DIAS 75; BP_DIAS 82; BP_DIAS 84
[2017-08-31] MEDS ORDERED: CEPH-507 PO (20:58)
[2017-08-31] MEDS ORDERED: CEPHALEXIN 250 MG (KEFLEX) CAP PO ONE (21:00)
[2017-08-31 21:24] VITALS: BP 135/86
== END 2017-08-31 21:24 | disposition left against medical advice (07) ==
LOC: EDUNIT# 18:25 → ER 18:26
DX: S09.90XA Unspecified injury of head, initial encounter (principal); R55 Syncope and collapse; E04.1 Nontoxic single thyroid nodule; N39.0 Urinary tract infection, site not specified; L98.9 Disorder of the skin and subcutaneous tissue, unspecified; I10 Essential (primary) hypertension; F17.210 Nicotine dependence, cigarettes, uncomplicated; F41.9 Anxiety disorder, unspecified; Z90.49 Acquired absence of other specified parts of digestive tract; Z90.710 Acquired absence of both cervix and uterus; Z90.89 Acquired absence of other organs; W17.89XA Other fall from one level to another, initial encounter
CPT/HCPCS: 36415; 70450; 71010; 72125; 72128; 80053; 80306; 80320; 81000; 82962; 83735; 83874; 84443; 84484; 85025; 85610; 85730; 87088; 93005; 93041

== ENCOUNTER → 2017-09-13 | Outpatient (CLI) | payer SELFPAY ==
[~2017-09-13] MED LIST changes: +CEPH-507 PO
--- NOTE | 2017-09-13 11:31 | Diagnostic Imaging Report ---
CLINICAL INDICATION: Patient with thyroid nodule seen on CT. COMPARISONS: CT scan of the head and cervical spine without contrast dated 08/31/2017. FINDINGS: THYROID NODULES: There is a 2.0 cm x 2.2 cm x 1.3 cm slightly hypoechoic/isoechoic solid nodule with thin peripheral hypoechoic rim located in the upper right thyroid gland. There is Doppler flow within this nodule. THYROID GLAND: Besides the thyroid nodule, the thyroid gland has normal size, shape and echogenicity. The right lobe measures 4.7 cm x 1.9 cm x 2.0 cm and the left lobe measures 4.3 cm x 1.1 cm x 1.5 cm in their three dimensions. ISTHMUS: The isthmus is unremarkable and measures 3 mm in thickness. Impression: 1: There is a 2.2 cm solid nodule within the upper portion of the right thyroid gland. This nodule is amenable to fine-needle aspiration for further characterization. 2: Otherwise, the thyroid gland is unremarkable. Dictated by: Dictated on workstation # [id number]
== END ==
LOC: RAD 10:39
PROVIDERS: ATTEND Nurse Practitioner Family
DX: E04.1 Nontoxic single thyroid nodule (principal)
CPT/HCPCS: 76536

== ENCOUNTER → 2017-09-25 | Outpatient (CLI) | payer SELFPAY ==
--- NOTE | 2017-09-26 19:06 | Diagnostic Imaging Report ---
EXAMINATION: I-123 uptake scan at 11:21 a.m. INDICATION: Thyroid nodule. FINDINGS: This study was performed following administration of 200 ?Ci of I-123. There are no prior nuclear medicine thyroid scans available for comparison. The recent thyroid ultrasound exam performed on 09/13/2017 noted a 2.2 cm solid nodule in the superior pole of the right lobe of the thyroid. The 4-hour uptake is 22.3% (normal 8-16%). The 24-hour uptake is 59.5% (normal 10-30%). The reason for the increased uptake is uncertain, but the possibility of hyperthyroidism should certainly be considered. Correlation with the patient's thyroid laboratory values would be recommended. There is fairly even distribution of the radiotracer throughout both lobes of the thyroid. Specifically, there is no area of increased or decreased activity in the superior pole of the right lobe of the thyroid to suggest that the 2.2 cm nodule seen on the ultrasound exam is malignant. If a tissue diagnosis of this nodule is desired, then an ultrasound-guided biopsy could be performed. If there is no intervention at this time, then a short-term (three-month) followup thyroid ultrasound exam should be obtained. IMPRESSION: 1. The 24-hour uptake value is elevated indicating that there may be hyperthyroidism. Correlation with the patient's laboratory thyroid values would be recommended. 2. There is no defect within the right lobe to suggest that the nodule seen on the ultrasound exam is a cold nodule. I do suspect that that nodule is benign. Recommendations as above. 3. These results will be discussed with ONEL Donohue. Dictated on workstation # [id number]
== END ==
LOC: CARD 10:53
PROVIDERS: ATTEND Nurse Practitioner Family
DX: E04.1 Nontoxic single thyroid nodule (principal)
CPT/HCPCS: 78014

== ENCOUNTER → 2017-09-28 | Outpatient (CLI) | payer SELFPAY | LOC: CARD 12:22 | PROVIDERS: ATTEND Nurse Practitioner Family | DX: R55 Syncope and collapse (principal) | CPT/HCPCS: 93306 ==

== ENCOUNTER → 2017-10-17 | Outpatient (CLI) | payer SELFPAY ==
--- NOTE | 2017-10-17 14:28 | Diagnostic Imaging Report ---
PROCEDURE: US carotid duplex, bilateral. TECHNIQUE: Multiple real-time grayscale images were obtained over the carotid arteries in various projections, bilaterally. Additional duplex Doppler and color Doppler images were also obtained. INDICATION: Syncope. There are no prior studies available for comparison. FINDINGS: There is a moderate amount of hard and soft plaque formation in both carotid bifurcations. The flow velocities fail to show any sign of a hemodynamically significant stenosis of the common or internal carotid arteries, however. The flow velocities are as follows (cm/s): Mid CCA: Right 95, left 73.3. Proximal ICA: Right 68, left 71.5. Mid ICA: Right 79.7, left 72.1. Distal ICA: Right 116, left 84.4. IC/CC ratio: Right 1.2, left 1.2. Both vertebral arteries are identified and there is antegrade flow bilaterally. IMPRESSION: There is moderate atherosclerotic disease involving both carotid systems, but there is no evidence for a hemodynamically significant stenosis of the common or internal carotid arteries. Dictated by: Dictated on workstation # [id number]
== END ==
LOC: RAD 11:33
PROVIDERS: ATTEND Nurse Practitioner Family
DX: I65.23 Occlusion and stenosis of bilateral carotid arteries (principal)
CPT/HCPCS: 93880

== ENCOUNTER → 2017-10-22 | Outpatient (CLI) | payer SELFPAY ==
[2017-10-22 08:13] LABS: BASOPHILS % (AUTO) 0 % (0-10); EOSINOPHILS # (AUTO) 0.1 10^3/uL (0.0-0.3); EOSINOPHILS % (AUTO) 2 % (0-10); HEMATOCRIT 49 % (35-52); HEMOGLOBIN 17.2 G/DL (11.5-16.0); LYMPHOCYTES # (AUTO) 1.7 X 10^3 (1.0-4.0); LYMPHOCYTES % (AUTO) 24 % (12-44); MEAN CORPUSCULAR HEMOGLOBIN 33 PG (25-34); MEAN CORPUSCULAR HGB CONC 35 G/DL (32-36); MEAN CORPUSCULAR VOLUME 93 FL (80-99); MEAN PLATELET VOLUME 9.2 FL (7.4-10.4); MONOCYTES # (AUTO) 0.4 X 10^3 (0.0-1.0); MONOCYTES % (AUTO) 6 % (0-12); NEUTROPHILS # (AUTO) 4.8 X 10^3 (1.8-7.8); NEUTROPHILS % (AUTO) 68 % (42-75); PLATELET COUNT 204 10^3/uL (130-400); RED BLOOD COUNT 5.29 10^6/uL (4.35-5.85); RED CELL DISTRIBUTION WIDTH 12.7 % (10.0-14.5)
[2017-10-22 08:34] LABS: ALANINE AMINOTRANSFERASE 25 U/L (0-55); ALBUMIN 4.4 GM/DL (3.2-4.5); ALKALINE PHOSPHATASE 190 U/L (40-136); BILIRUBIN,TOTAL 0.7 MG/DL (0.1-1.0); BUN/CREATININE RATIO 11; CALCIUM 9.7 MG/DL (8.5-10.1); CARBON DIOXIDE 23 MMOL/L (21-32); CHLORIDE 106 MMOL/L (98-107); CREATININE SERUM 0.71 MG/DL (0.60-1.30); GFR ESTIMATED > 60; GLUCOSE 113 MG/DL (70-105); POTASSIUM 3.9 MMOL/L (3.6-5.0); SODIUM 138 MMOL/L (135-145); TOTAL PROTEIN 7.1 GM/DL (6.4-8.2)
[2017-10-22 08:54] LABS: FREE T4 (FREE THYROXINE) 0.99 NG/DL (0.70-1.48)
== END ==
LOC: LAB 07:57
PROVIDERS: ATTEND Internal Medicine Endocrinology, Diabetes & Metabolism
DX: I10 Essential (primary) hypertension (principal); E04.1 Nontoxic single thyroid nodule
CPT/HCPCS: 36415; 80053; 84439; 85025

== ENCOUNTER 2017-10-26 13:40 | Outpatient (RCR) | payer OTHER ==
[2017-10-23 07:22] LABS: URINE VOLUME CAT 1350 ML
[2017-10-25 06:05] LABS: EPINEPHRINE RATIO 5 ug/g CRT (0-20)
[2017-10-25 07:08] LABS: CREATININE CAT FR MG/DL 42 MG/DL
== END 2018-01-15 | disposition home or self-care (01) ==
LOC: LAB 13:40
PROVIDERS: ATTEND Internal Medicine Endocrinology, Diabetes & Metabolism
DX: E04.1 Nontoxic single thyroid nodule (principal); I10 Essential (primary) hypertension
CPT/HCPCS: 36415; 82088; 82384; 83497; 84244

== ENCOUNTER → 2017-12-06 | Outpatient (CLI) | payer OTHER ==
--- NOTE | 2017-12-06 10:49 | Diagnostic Imaging Report ---
PROCEDURE: US Thyroid. TECHNIQUE: Multiple Real-time grayscale images were obtained of the thyroid in various projections. INDICATION: Right lobe thyroid nodule. This study is performed for followup. COMPARISON: 09/13/2017. FINDINGS: The right lobe of the thyroid measures 4.7 x 1.9 x 1.8 cm and the left lobe measures 4.2 x 1.2 x 1.6 cm. A well-defined hypoechoic solid nodule in the upper pole of the right lobe of the thyroid is again noted measuring 2.3 x 1.4 x 2.0 cm compared to 2.2 x 1.3 x 2.0 cm previously. No new thyroid mass is detected. Images of the soft tissues of the neck were also performed. Left neck lymph nodes are present with the largest measuring 1.5 x 0.9 cm, within normal limits. On the right, there is a slightly prominent lymph node measuring 2.1 x 0.5 x 0.6 cm. IMPRESSION: Stable solid mass in the right lobe of the thyroid gland. This again would be amenable to fine-needle aspiration if clinically indicated. A mildly prominent right neck lymph node is noted, as described. Dictated by: Dictated on workstation # [id number]
== END ==
LOC: RAD 07:48
PROVIDERS: ATTEND Internal Medicine Endocrinology, Diabetes & Metabolism
DX: E04.1 Nontoxic single thyroid nodule (principal); R59.0 Localized enlarged lymph nodes
CPT/HCPCS: 76536

== ENCOUNTER → 2017-12-19 | Outpatient (CLI) | payer OTHER ==
[~2017-12-19] VITALS: Ht 160 cm; Wt 62.1 kg
[~2017-12-19] MED LIST changes: +LIDOCAINE 1% INJ 50 ML (XYLOCAINE) VIAL IJ ONE
[2017-12-19 14:10] VITALS: BP 124/71
[2017-12-19 14:59] VITALS: BP 122/74
--- NOTE | 2017-12-19 15:52 | Diagnostic Imaging Report ---
INDICATION: Recent positive thyroid biopsy. Patient has a mildly enlarged lymph node in the right neck. The patient presents for fine-needle aspiration of the enlarged lymph node in the right neck for thyroglobulin assay. PROCEDURE: Patient was brought to the procedure room and placed on the bed in the supine position. Ultrasound imaging over the right neck was performed to evaluate appropriate entry site. The right neck was prepped and draped in usual sterile fashion. A small amount of 1% lidocaine was utilized for local anesthesia. A total of four passes were made into the enlarged lymph node in the right neck, just lateral to the right submandibular gland utilizing 25-gauge needles. Fine-needle aspiration technique was utilized. The samples were placed into sterile saline and sent to lab. Hemostasis was obtained using manual compression. IMPRESSION: Successful fine-needle aspiration of the enlarged lymph node in the right neck just lateral to the right submandibular gland. Pathology results are currently pending. Dictated by: Dictated on workstation # [id number]
== END ==
LOC: RAD 13:53
PROVIDERS: ATTEND Internal Medicine Endocrinology, Diabetes & Metabolism
DX: R59.0 Localized enlarged lymph nodes (principal)
CPT/HCPCS: 36415; 76942

== ENCOUNTER → 2018-02-28 | Outpatient (CLI) | payer OTHER ==
[~2018-02-28] MED LIST changes: -LIDOCAINE 1% INJ 50 ML (XYLOCAINE) VIAL IJ ONE
[2018-02-28 08:36] LABS: BUN/CREATININE RATIO 16; CARBON DIOXIDE 18 MMOL/L (21-32); CHLORIDE 108 MMOL/L (98-107); CREATININE SERUM 0.75 MG/DL (0.60-1.30); GFR ESTIMATED > 60; GLUCOSE 118 MG/DL (70-105); POTASSIUM 4.3 MMOL/L (3.6-5.0); SODIUM 137 MMOL/L (135-145)
== END ==
LOC: LAB 07:53
PROVIDERS: ATTEND Internal Medicine Endocrinology, Diabetes & Metabolism
DX: C73 Malignant neoplasm of thyroid gland (principal)
CPT/HCPCS: 36415; 80048; 84432; 84443; 86376; 86800

== ENCOUNTER 2018-03-22 12:05 | Outpatient (RCR) | payer OTHER ==
[~2018-03-22 12:05] MED LIST changes: -LOSA100T28 PO; +LOSA100T8 PO
== END 2018-06-06 | disposition home or self-care (01) ==
LOC: ONC 12:05
PROVIDERS: ATTEND Radiology Radiation Oncology
DX: C73 Malignant neoplasm of thyroid gland (principal)
CPT/HCPCS: 36415; 84443; 99204

== ENCOUNTER 2018-03-22 12:42 | Outpatient (RCR) | payer SELFPAY ==
--- NOTE | 2018-03-29 14:00 | Diagnostic Imaging Report ---
INDICATION: Papillary thyroid carcinoma. TECHNIQUE: The patient was administered 32.2 mCi of iodine-131 orally and imaging was performed after 7 days. COMPARISON: No prior studies are available for comparison. FINDINGS: There appears to be some mild salivary gland uptake in the submandibular region. There is activity in the midline neck, consistent with residual thyroid tissue. No abnormal activity is seen elsewhere within the neck or within the chest, abdomen, or pelvis. IMPRESSION: There is some residual activity in the midline neck, consistent with residual thyroid tissue. No distant site activity is detected. Dictated by: Dictated on workstation # [id number]
== END 2018-04-09 | disposition home or self-care (01) ==
LOC: CARD 12:42 → EDSTATUS 13:00
PROVIDERS: ATTEND Radiology Radiation Oncology
DX: C73 Malignant neoplasm of thyroid gland (principal)
CPT/HCPCS: 36415; 78018; 79005; 84432; 86800

== ENCOUNTER → 2018-07-19 | Outpatient (CLI) | payer OTHER ==
[2018-07-19 10:14] LABS: FREE T4 (FREE THYROXINE) 1.3 NG/DL (0.70-1.48)
== END ==
LOC: LAB 09:07
PROVIDERS: ATTEND Internal Medicine Endocrinology, Diabetes & Metabolism
DX: E89.0 Postprocedural hypothyroidism (principal)
CPT/HCPCS: 36415; 84439; 84443

== ENCOUNTER 2018-07-24 07:48 | Emergency (ER) | payer OTHER ==
[~2018-07-24] VITALS: Ht 160 cm; Wt 59.9 kg
--- NOTE | 2018-07-24 08:16 | ED GI ---
General Chief Complaint: Rect Problems Stated Complaint: BLEEDING RECTALLY Nursing Triage Note: PT STATES THAT SHE HAS BLOOD COMING FROM RECTUM WHEN SHE URINATES AND HAS BOWEL MOVEMENT. PT STATES THERE IS PAIN AND MORE BLOOD WITH BOWEL MOVEMENTS. HAS BEEN GOING ON FOR 3 DAYS. Sepsis Screen: No Definite Risk Source of Information: Patient, Family Exam Limitations: No Limitations History of Present Illness Date Seen by Provider: Jul 24, 2018 Time Seen by Provider: 08:05 Initial Comments Patient presents to ER by private conveyance with a chief complaint that she's having rectal bleeding for the past 3 days. Today she noticed the blood is mixed in the stool as well as on wiping bright red. She denies it could be from the vagina. She has a history of hysterectomy over 20 years ago. No colonoscopies. 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 She's not having any chest pain shortness of breath. She does have a history of hypothyroidism secondary to discovering a thyroid cancer and had it surgically removed. She is on 150 mg of levothyroxine. She also has a mother who recently discovered to have colon cancer and so this worried her. She says she was not anemic prior to this. She does not have insurance that she does not follow routinely with a doctor. He also complains of a inguinal groin rash going on for 5 months it itchy red and she's tried steroids, over-the- counter jock itch screen as well as lotions with no relief. She has not followed up with a doctor for it. She says since her thyroid starting acting up in the last few months she's had a lot of problems with constipation and diarrhea that she's been regular last several days. She denies a history of diverticulitis or hemorrhoids. She's not having any abdominal pain nausea vomiting. Allergies and Home Medications Allergies Coded Allergies: erythromycin base (Unverified Allergy, Mild, 03/23/09) Sulfa (Sulfonamide Antibiotics) (Verified Allergy, Unknown, 06/30/16) Home Medications Alprazolam 0.25 Mg Tablet, 0.25 MG PO QID PRN for ANXIETY Prescribed by: HAWA HONG on 06/30/16 1146 Atenolol 50 Mg Tablet, 50 MG PO DAILY, (Reported) Cephalexin 500 Mg Capsule, 500 MG PO QID Prescribed by: HAWA HONG on 08/31/172057 Losartan Potassium 100 Mg Tablet, 100 MG PO BID, (Reported) Ondansetron 8 Mg Tab.rapdis, 8 MG PO Q6H PRN for NAUSEA/VOMITING-1ST LINE Prescribed by: CHERRIE MOREL on 02/20/17 1325 Sulfamethoxazole/Trimethoprim 1 Each Tablet, 1 EACH PO BID Prescribed by: CHERRIE MOREL on 02/20/17 1510 Patient Home Medication List Home Medication List Reviewed: Yes Review of Systems Review of Systems Constitutional: No chills, No diaphoresis EENTM: No Blurred Vision, No Double Vision Respiratory: Denies Cough, Denies Orthopnea Cardiovascular: Denies Chest Pain, Denies Lightheadedness Gastrointestinal: Denies Abdomen Distended, Denies Abdominal Pain, Denies Constipated, Denies Diarrhea, Denies Nausea; Rectal Bleeding; Denies Vomiting Genitourinary: Denies Burning, Denies Discharge, Denies Drainage Musculoskeletal: No back pain, No joint pain Skin: see HPI; No pruritus; rash Past Erfpisu-Jmtnbr-Vfifgk Hx Patient Social History Alcohol Use: Regular Use Number of Drinks Today: 0 Alcohol Beverage of Choice: Beer Recreational Drug Use: Yes Drug of Choice: MARIJUANA Type Used: Cigarettes Recent Foreign Travel: No Contact w/Someone Who Travel: No Recent Infectious Disease Expo: No Recent Hopitalizations: No Physical Abuse: No Sexual Abuse: No Past Medical History Surgeries: Yes (Aneurysm repair) Adenoidectomy, Appendectomy, Gallbladder, Hysterectomy, Thyroidectomy, Tonsillectomy, Vascular Surgery Respiratory: No Cardiac: Yes (AAA) Aneurysm, Hypertension, Syncope Neurological: No Reproductive Disorders: No Genitourinary: No Gastrointestinal: No Musculoskeletal: No Endocrine: No HEENT: No Cancer: Yes Thyroid Psychosocial: Yes (alcohol dependence, anxiety) Anxiety Integumentary: No Blood Disorders: No Family Medical History Cancer Physical Exam Vital Signs Vital Signs - First Documented 07/24/18 07:55 Temp 96.0 Pulse 67 Resp 14 B/P (MAP) 193/104 (133) Pulse Ox 98 Capillary Refill : Less Than 3 Seconds Height/Weight/BMI Height: 5'3.00" Weight: 132lbs. 0.0oz. [id number]; 24.3 BMI Method:Stated General Appearance: WD/WN, no apparent distress HEENT: PERRL/EOMI, normal ENT inspection Respiratory: no respiratory distress, no accessory muscle use Cardiovascular: normal peripheral pulses, regular rate, rhythm, no edema Gastrointestinal: non tender, soft Genital/Rectal: normal rectal exam, other (normal external rectal exam with a few noninflamed hemorrhoids without fissures. No rectal vault mass on digital examination. Stool is grossly nonbloody.) Extremities: normal inspection, normal capillary refill Neurologic/Psychiatric: alert, oriented x 3, other (anxious) Progress/Results/Core Measures Results/Orders Lab Results Laboratory Tests Test 07/24/18 08:14 07/24/18 08:18 Range/Units White Blood Count 5.7 4.3-11.0 10^3/uL Red Blood Count 4.91 4.35-5.85 10^6/uL Hemoglobin 15.8 11.5-16.0 G/DL Hematocrit 46 35-52 % Mean Corpuscular Volume 94 80-99 FL Mean Corpuscular Hemoglobin 32 25-34 PG Mean Corpuscular Hemoglobin Concent 34 32-36 G/DL Red Cell Distribution Width 13.1 10.0-14.5 % Platelet Count 207 130-400 10^3/uL Mean Platelet Volume 9.0 7.4-10.4 FL Neutrophils (%) (Auto) 63 42-75 % Lymphocytes (%) (Auto) 27 12-44 % Monocytes (%) (Auto) 7 0-12 % Eosinophils (%) (Auto) 2 0-10 % Basophils (%) (Auto) 1 0-10 % Neutrophils # (Auto) 3.6 1.8-7.8 X 10^3 Lymphocytes # (Auto) 1.5 1.0-4.0 X 10^3 Monocytes # (Auto) 0.4 0.0-1.0 X 10^3 Eosinophils # (Auto) 0.1 0.0-0.3 10^3/uL Basophils # (Auto) 0.1 0.0-0.1 10^3/uL Sodium Level 137 135-145 MMOL/L Potassium Level 4.1 3.6-5.0 MMOL/L Chloride Level 107 98-107 MMOL/L Carbon Dioxide Level 21 21-32 MMOL/L Anion Gap 9 5-14 MMOL/L Blood Urea Nitrogen 18 7-18 MG/DL Creatinine 0.72 0.60-1.30 MG/DL Estimat Glomerular Filtration Rate > 60 BUN/Creatinine Ratio 25 Glucose Level 112 H 70-105 MG/DL Calcium Level 9.1 8.5-10.1 MG/DL Corrected Calcium 8.5-10.1 MG/DL Total Bilirubin 0.5 0.1-1.0 MG/DL Aspartate Amino Transf (AST/SGOT) 26 5-34 U/L Alanine Aminotransferase (ALT/SGPT) 29 0-55 U/L Alkaline Phosphatase 133 40-136 U/L Total Protein 7.2 6.4-8.2 GM/DL Albumin 4.6 H 3.2-4.5 GM/DL Urine Color YELLOW Urine Clarity CLEAR Urine pH 5 5-9 Urine Specific [place] 1.020 1.016-1.022 Urine Protein 1+ H NEGATIVE Urine Glucose (UA) NEGATIVE NEGATIVE Urine Ketones NEGATIVE NEGATIVE Urine Nitrite NEGATIVE NEGATIVE Urine Bilirubin NEGATIVE NEGATIVE Urine Urobilinogen NORMAL NORMAL MG/DL Urine Leukocyte Esterase NEGATIVE NEGATIVE Urine RBC (Auto) 2+ H NEGATIVE Urine RBC 2-5 H /HPF Urine WBC RARE /HPF Urine Squamous Epithelial Cells 10-25 H /HPF Urine Crystals NONE /LPF Urine Bacteria FEW H /HPF Urine Casts NONE /LPF Urine Mucus MODERATE H /LPF Urine Culture Indicated YES My Orders Orders - YULIANA KAY Fecal Occult Bedside (07/24/18 08:08) Ua Culture If Indicated (07/24/18 08:08) Cbc With Automated Diff (07/24/18 08:08) Comprehensive Metabolic Panel (07/24/18 08:08) Urine Culture (07/24/18 08:18) Vital Signs/I&O 07/24/18 07:55 Temp 96.0 Pulse 67 Resp 14 B/P (MAP) 193/104 (133) Pulse Ox 98 Blood Pressure Mean: 133 Progress Progress Note : Time: 08:14 Progress Note Plan to check CBC looking for anemia, signs of infection that might lead towards something more severe like diverticulitis. We'll get a fecal occult and rectal exam. Surgical nonacute abdomen. If we can Rule out a severe anemia then we will get her set up by general surgery. Departure Impression Primary Impression: Rectal bleed Disposition: 01 HOME, SELF-CARE Condition: Stable Departure-Patient Inst. Decision time for Depature: 10:01 Referrals: [facility] (PCP/Family) Primary Care Physician RAHUL ALVAREZ MD Patient Instructions: Bloody Stools, Adult (DC) Add. Discharge Instructions: Drink plenty of fluids. At the get here call Dr. Alvarez at his office and request an appointment for follow-up for rectal bleeding to be set up for endoscopy. If you begin to have chest pain or shortness of breath he should return to the nearest ER. All discharge instructions reviewed with patient and/or family. Voiced understanding. Work/School Note: Work Release Form Date Seen in the Emergency Department: Jul 24, 2018 Return to Work: Jul 25, 2018 Restrictions: No Restrictions Copy Copies To 1: RAHUL ALVAREZ MD, TITUS J Jul 24, 2018 08:16
[2018-07-24 08:22] LABS: BASOPHILS # (AUTO) 0.1 10^3/uL (0.0-0.1); BASOPHILS % (AUTO) 1 % (0-10); EOSINOPHILS # (AUTO) 0.1 10^3/uL (0.0-0.3); EOSINOPHILS % (AUTO) 2 % (0-10); HEMATOCRIT 46 % (35-52); HEMOGLOBIN 15.8 G/DL (11.5-16.0); LYMPHOCYTES # (AUTO) 1.5 X 10^3 (1.0-4.0); LYMPHOCYTES % (AUTO) 27 % (12-44); MEAN CORPUSCULAR HEMOGLOBIN 32 PG (25-34); MEAN CORPUSCULAR HGB CONC 34 G/DL (32-36); MEAN CORPUSCULAR VOLUME 94 FL (80-99); MONOCYTES # (AUTO) 0.4 X 10^3 (0.0-1.0); MONOCYTES % (AUTO) 7 % (0-12); NEUTROPHILS # (AUTO) 3.6 X 10^3 (1.8-7.8); NEUTROPHILS % (AUTO) 63 % (42-75); PLATELET COUNT 207 10^3/uL (130-400); RED BLOOD COUNT 4.91 10^6/uL (4.35-5.85); RED CELL DISTRIBUTION WIDTH 13.1 % (10.0-14.5); WHITE BLOOD COUNT 5.7 10^3/uL (4.3-11.0)
[2018-07-24 08:30] LABS: BILIRUBIN,URINE NEGATIVE (NEGATIVE); CLARITY,URINE CLEAR; COLOR,URINE YELLOW; GLUCOSE, URINE (UA) NEGATIVE (NEGATIVE); KETONES,URINE NEGATIVE (NEGATIVE); LEUKOCYTE ESTERASE ,URINE NEGATIVE (NEGATIVE); NITRITE,URINE NEGATIVE (NEGATIVE); PH,URINE 5 (5-9); PROTEIN,URINE 1+ (NEGATIVE); UROBILINOGEN,URINE NORMAL (NORMAL)
[2018-07-24 08:39] LABS: ALANINE AMINOTRANSFERASE 29 U/L (0-55); ALBUMIN 4.6 GM/DL (3.2-4.5); ALKALINE PHOSPHATASE 133 U/L (40-136); BILIRUBIN,TOTAL 0.5 MG/DL (0.1-1.0); BUN/CREATININE RATIO 25; CALCIUM 9.1 MG/DL (8.5-10.1); CARBON DIOXIDE 21 MMOL/L (21-32); CHLORIDE 107 MMOL/L (98-107); CREATININE SERUM 0.72 MG/DL (0.60-1.30); GFR ESTIMATED > 60; GLUCOSE 112 MG/DL (70-105); POTASSIUM 4.1 MMOL/L (3.6-5.0); SODIUM 137 MMOL/L (135-145); TOTAL PROTEIN 7.2 GM/DL (6.4-8.2)
[2018-07-24 08:40] LABS: BACTERIA,URINE FEW /HPF; WBC,URINE RARE /HPF
[2018-07-24 10:05] VITALS: BP 150/56
== END 2018-07-24 10:06 | disposition home or self-care (01) ==
LOC: EDUNIT# 07:48 → ER 07:51
DX: K62.5 Hemorrhage of anus and rectum (principal); E03.9 Hypothyroidism, unspecified; I10 Essential (primary) hypertension; F41.9 Anxiety disorder, unspecified; F10.20 Alcohol dependence, uncomplicated; F12.10 Cannabis abuse, uncomplicated; Z85.850 Personal history of malignant neoplasm of thyroid; Z88.0 Allergy status to penicillin; Z88.2 Allergy status to sulfonamides; Z90.710 Acquired absence of both cervix and uterus; Z98.890 Other specified postprocedural states; Z90.89 Acquired absence of other organs
CPT/HCPCS: 36415; 80053; 81000; 85025; 87088

== ENCOUNTER 2018-07-26 06:14 | Outpatient (CLI) | payer OTHER ==
[~2018-07-26] VITALS: Ht 160 cm; Wt 59.9 kg
[2018-07-26] MEDS ORDERED: LOSA50TA7 PO (13:00)
[2018-07-26] MEDS ORDERED: BUSP10TA95 PO (13:00)
[2018-07-26] MEDS ORDERED: LEVO150T6 PO (13:00)
== END 2018-07-26 13:14 | disposition home or self-care (01) ==
LOC: PREOP 06:14
PROVIDERS: ATTEND Surgery
DX: Z01.818 Encounter for other preprocedural examination (principal)

== ENCOUNTER 2018-07-29 11:10 | Day surgery (SDC) | payer SELFPAY ==
[~2018-07-29] VITALS: Ht 160 cm; Wt 59.9 kg
[~2018-07-29 11:10] MED LIST changes: +BUSP10TA95 PO; +LEVO150T6 PO; +LOSA50TA7 PO
[2018-07-29] MEDS ORDERED: LACTATED RINGERS 1,000 ML IV ONE (11:20)
[2018-07-29] MEDS ORDERED: LACTATED RINGERS 1,000 ML IV STA (11:22)
[2018-07-29 11:32] VITALS: BP 130/99
[2018-07-29] MEDS ORDERED: proPOfol 200 MG/20 ML (DIPRIVAN) VIAL IV ONE (11:40)
[2018-07-29] MEDS ORDERED: MIDAZOLAM 2 MG/2 ML (VERSED) VIAL ONE (11:40)
[2018-07-29] MEDS ORDERED: ATEN50TA PO (11:43)
--- NOTE | 2018-07-29 11:51 | Progress Note-Pre Operative ---
Pre-Operative Progress Note H&P Reviewed The H&P was reviewed, patient examined and no changes noted. Date Seen by Provider: Jul 29, 2018 Time Seen by Provider: 11:51 Date H&P Reviewed: Jul 29, 2018 Time H&P Reviewed: 11:51 Pre-Operative Diagnosis: brbpr, anal fisusre, family hx colon cancer AJIT PINEDA DO Jul 29, 2018 11:51
[2018-07-29 12:25] VITALS: BP 111/66
[2018-07-29 12:50] VITALS: BP 121/89
[2018-07-29 13:02] VITALS: BP 121/89
--- NOTE | 2018-07-29 14:03 | Anesthesia-General Post-Op ---
MAC Patient Condition Mental Status/LOC: Same as Preop Cardiovascular: Satisfactory Nausea/Vomiting: Absent Respiratory: Satisfactory Pain: Controlled Complications: Absent Post Op Complications Complications None Follow Up Care/Instructions Patient Instructions None needed. Anesthesiology Discharge Order Discharge Order Patient is doing well, no complaints, stable vital signs, no apparent adverse anesthesia problems. No complications reported per nursing. BRYANAN ADHIKARI CRNA Jul 29, 2018 14:03
--- NOTE | 2018-07-30 06:10 | OPERATIVE REPORT ---
DATE OF SERVICE: 07/29/2018 PREOPERATIVE DIAGNOSIS: Screening colonoscopy. POSTOPERATIVE DIAGNOSIS: Sigmoid colon polyp and internal hemorrhoids. PROCEDURE: 1. Colonoscopy with hot biopsy polypectomy 2. Sigmoid colon polyp. SURGEON: Ajit Bryson DO ANESTHESIA: Per PRINT WASHER. ESTIMATED BLOOD LOSS: None. COMPLICATIONS: None. INDICATIONS: The patient is a 53-year-old female with family history of colon cancer. She understands risks and benefits of procedure. She wished to proceed with procedure. Consent was signed in the chart. PROCEDURE: The patient was taken to the endoscopy suite, placed in the left lateral recumbent position. Timeout was performed. Digital rectal exam was performed. There were no palpable polyps, mass or ulcerations. The scope was inserted in the rectum and advanced all the way to the cecum with minimal difficulty. Prep was adequate. Scope was then slowly retracted back. There were no polyps, masses or ulcerations in the cecum, ascending, transverse and descending colon. In the sigmoid colon, a small polyp was present, which hot biopsy polypectomy was performed. Scope was continuously and slowly retracted back. There are no other polyps, masses or ulcerations. Once in the rectum, scope was retroflexed noting no other pathology except for some internal hemorrhoids. Scope was returned to its normal position, slowly withdrawn until completely removed, noting no other pathology. RECOMMENDATIONS: The patient will follow up in 2 weeks to discuss pathology results. We will also discuss any issues with her internal hemorrhoids. She has family history of colon cancer and a polyp which we would recommend repeat colonoscopy in 5 years. If she has any problems before that, she should be reevaluated at that time. cc: [facility]. Job ID: [id number] DocumentID: [id number] Dictated Date: 07/29/2018 21:48:06 Bundle Cutter Date: 07/30/2018 06:10:30 Dictated By: AJIT BRYSON DO
== END 2018-07-29 13:00 | disposition home or self-care (01) ==
LOC: ENDO 11:10
PROVIDERS: ATTEND Surgery
DX: D12.5 Benign neoplasm of sigmoid colon (principal); K64.8 Other hemorrhoids; K60.0 Acute anal fissure; I10 Essential (primary) hypertension; K21.9 Gastro-esophageal reflux disease without esophagitis; Z80.0 Family history of malignant neoplasm of digestive organs; F17.210 Nicotine dependence, cigarettes, uncomplicated; Z79.899 Other long term (current) drug therapy

== ENCOUNTER 2019-02-13 10:37 | Emergency (ER) | payer SELFPAY ==
[~2019-02-13] VITALS: Ht 160 cm; Wt 62.1 kg
[~2019-02-13 10:37] MED LIST changes: +LOSA100T57 PO; -LOSA100T8 PO; +LOSA50TA63 PO; -LOSA50TA7 PO
[2019-02-13] MEDS ORDERED: ACETAMINOPHEN 500 MG TAB (TYLENOL) PO ONE (11:00)
[2019-02-13] MEDS ORDERED: KETOROLAC 30 MG/ML VIAL IVP ONE (11:00)
--- NOTE | 2019-02-13 11:02 | ED Headache ---
General Stated Complaint: BP ISSUES;HEADACHE;DIZZINESS Source: patient Exam Limitations: no limitations History of Present Illness Date Seen by Provider: Feb 13, 2019 Time Seen by Provider: 10:50 Initial Comments Patient presents to ER with chief complaint of headache 3 days. She does not have a history of chronic headaches. Centered over her left adventist constant and does not respond to ibuprofen. She took ibuprofen 400 mg about 2 hours ago. Intake and about 2 or 3 times a day. She's having no visual disturbances, confusion, speech disturbances, facial droop, weakness, tingling or numbness. No fevers or chills but she does feel hot. She has a history of surgical hypothyroidism and is followed by an restorative care technician. She is not nauseated. She checked her blood pressure today and noted it to be 190/110 and this concerned her. She does have a history of high blood pressure and takes atenolol and losartan which she did take this morning along with her Synthroid. She rates her pain as a 7-8 out of 10. She does have some clear rhinorrhea from her left nostril and the pain radiates from her adventist down into her left maxilla. She saw a dentist 2 weeks ago and at that time she had a clean bill of health with no cavities at that time. It does not hurt to eat or drink. Allergies and Home Medications Allergies Coded Allergies: Sulfa (Sulfonamide Antibiotics) (Verified Allergy, Severe, TONGUE SWELLING, 07/26/18) erythromycin base (Unverified Allergy, Severe, TONGUE SWELLING, 07/26/18) Home Medications Atenolol 50 Mg Tablet, 50 MG PO DAILY, (Reported) Buspirone HCl 10 Mg Tablet, 10 MG PO HS, (Reported) Levothyroxine Sodium 150 Mcg Tablet, 150 MCG PO DAILY, (Reported) Losartan Potassium 50 Mg Tablet, 50 MG PO BID, (Reported) Patient Home Medication List Home Medication List Reviewed: Yes Review of Systems Review of Systems Constitutional: No chills, No fever Eyes: Denies Blindness, Denies Drainage Ears, Nose, Mouth, Throat: see HPI; denies ear pain, denies nose pain; nose discharge Respiratory: No cough, No short of breath Cardiovascular: No chest pain, No edema Gastrointestinal: No abdominal pain, No nausea, No vomiting Genitourinary: No discharge, No dysuria : No Musculoskeletal: No back pain, No joint pain Past Pgrootx-Oomcwx-Pdcxfy Hx Patient Social History Alcohol Use: Occasionally Uses Alcohol Beverage of Choice: Beer Recreational Drug Use: Yes Drug of Choice: MARIJUANA Smoking Status: Current Everyday Smoker Type Used: Cigarettes (0.5 ppd) Recent Hopitalizations: No Immunizations Up To Date Tetanus Booster (TDap): Unknown Seasonal Allergies Seasonal Allergies: No Past Medical History Surgeries: Yes (Aneurysm repair) Adenoidectomy, Appendectomy, Gallbladder, Hysterectomy, Thyroidectomy, Tonsillectomy, Vascular Surgery Respiratory: No Currently Using CPAP: No Currently Using BIPAP: No Cardiac: Yes (AAA) Aneurysm, Hypertension, Syncope Neurological: No Reproductive Disorders: No Sexually Transmitted Disease: No HIV/AIDS: No Genitourinary: No Gastrointestinal: No Gastroesophageal Reflux, Chronic Constipation, Chronic Diarrhea Musculoskeletal: No Arthritis Endocrine: No HEENT: No Loss of Vision: Denies Hearing Impairment: Denies Cancer: Yes Thyroid Did You Recieve Any Treatments: Yes What Type of Treatment Did You: Radiation, Surgical Intervention Psychosocial: Yes (alcohol dependence, anxiety) Anxiety Integumentary: No Psoriasis Blood Disorders: No Adverse Reaction/Blood Tranf: No (HAS HAD BLOOD WITH NO REACTION) Family Medical History Cancer Physical Exam Vital Signs Vital Signs - First Documented 02/13/19 10:46 Temp 97.1 Pulse 69 Resp 15 B/P (MAP) 201/128 (152) Pulse Ox 97 O2 Delivery Room Air Capillary Refill : Height, Weight, BMI Height: 5'3.00" Weight: 132lbs. 0.0oz. 59.634581bp; 23.4 BMI Method:Stated General Appearance: WD/WN, mild distress HEENT: PERRL/EOMI, normal ENT inspection, TMs normal, pharynx normal, other (tenderness to palpation over the left maxilla. No tenderness to palpation or tapping over the left temporal region.) Neck: non-tender, full range of motion, supple, normal inspection Cardiovascular: normal peripheral pulses, regular rate, rhythm, no edema Respiratory: no respiratory distress, no accessory muscle use Psychiatric: alert, oriented x 3 Crainal Nerves: normal hearing, normal speech, PERRL, other (cranial nerves II through XII grossly normal to examination) Coordination/Gait: normal gait Motor/Sensory: no motor deficit, no sensory deficit Skin: normal color, warm/dry Progress/Results/Core Measures Results/Orders Lab Results Laboratory Tests Test 02/13/19 11:00 Range/Units White Blood Count 6.3 4.3-11.0 10^3/uL Red Blood Count 5.23 4.35-5.85 10^6/uL Hemoglobin 16.8 H 11.5-16.0 G/DL Hematocrit 48 35-52 % Mean Corpuscular Volume 93 80-99 FL Mean Corpuscular Hemoglobin 32 25-34 PG Mean Corpuscular Hemoglobin Concent 35 32-36 G/DL Red Cell Distribution Width 13.1 10.0-14.5 % Platelet Count 219 130-400 10^3/uL Mean Platelet Volume 8.8 7.4-10.4 FL Neutrophils (%) (Auto) 65 42-75 % Lymphocytes (%) (Auto) 28 12-44 % Monocytes (%) (Auto) 5 0-12 % Eosinophils (%) (Auto) 1 0-10 % Basophils (%) (Auto) 1 0-10 % Neutrophils # (Auto) 4.1 1.8-7.8 X 10^3 Lymphocytes # (Auto) 1.8 1.0-4.0 X 10^3 Monocytes # (Auto) 0.3 0.0-1.0 X 10^3 Eosinophils # (Auto) 0.1 0.0-0.3 10^3/uL Basophils # (Auto) 0.0 0.0-0.1 10^3/uL Erythrocyte Sedimentation Rate 1 0-30 MM/HR Sodium Level 137 135-145 MMOL/L Potassium Level 4.5 3.6-5.0 MMOL/L Chloride Level 106 98-107 MMOL/L Carbon Dioxide Level 21 21-32 MMOL/L Anion Gap 10 5-14 MMOL/L Blood Urea Nitrogen 13 7-18 MG/DL Creatinine 0.71 0.60-1.30 MG/DL Estimat Glomerular Filtration Rate > 60 BUN/Creatinine Ratio 18 Glucose Level 101 70-105 MG/DL Calcium Level 9.6 8.5-10.1 MG/DL Corrected Calcium 9.2 8.5-10.1 MG/DL Magnesium Level 2.2 1.8-2.4 MG/DL Total Bilirubin 0.6 0.1-1.0 MG/DL Aspartate Amino Transf (AST/SGOT) 24 5-34 U/L Alanine Aminotransferase (ALT/SGPT) 27 0-55 U/L Alkaline Phosphatase 151 H 40-136 U/L C-Reactive Protein High Sensitivity 0.13 0.00-0.50 MG/DL Total Protein 7.4 6.4-8.2 GM/DL Albumin 4.5 3.2-4.5 GM/DL Thyroid Stimulating Hormone (TSH) 0.31 L 0.35-4.94 UIU/ML Free Thyroxine 1.17 0.70-1.48 NG/DL My Orders Orders - YULIANA KAY Cbc With Automated Diff (02/13/19 10:54) Comprehensive Metabolic Panel (02/13/19 10:54) Hs C Reactive Protein (02/13/19 10:54) Erythrocyte Sedimentation Rate (02/13/19 10:54) Magnesium (02/13/19 10:54) Ketorolac Injection (Toradol Injection) (02/13/19 11:00) Acetaminophen Tablet (Tylenol Tablet) (02/13/19 11:00) Thyroid Stimulating Hormone (02/13/19 11:02) Hydralazine Injection (Apresoline Inject (02/13/19 11:15) Fentanyl Injection (Sublimaze Injection (02/13/19 12:00) Free T4 (Free Thyroxine) (02/13/19 12:03) Lidocaine 2% Viscous 15 Ml (Xylocaine Vi (02/13/19 12:30) Famotidine Tablet (Pepcid Tablet) (02/13/19 12:17) Antacid Suspension (Mylanta Suspension (02/13/19 12:30) Medications Given in ED Current Medications Medications Dose Ordered Sig/Brigid Route Start Time Stop Time Status Last Admin Dose Admin Acetaminophen 1,000 mg ONCE ONCE PO 02/13/19 11:00 02/13/19 11:01 DC 02/13/19 11:09 1,000 MG Fentanyl Citrate 75 mcg ONCE ONCE IVP 02/13/19 12:00 02/13/19 12:01 DC 02/13/19 11:54 75 MCG Hydralazine HCl 10 mg ONCE ONCE IV 02/13/19 11:15 02/13/19 11:16 DC 02/13/19 11:24 10 MG Ketorolac Tromethamine 15 mg ONCE ONCE IVP 02/13/19 11:00 02/13/19 11:01 DC 6/6/19 11:09 15 MG Vital Signs/I&O 02/13/19 10:46 Temp 97.1 Pulse 69 Resp 15 B/P (MAP) 201/128 (152) Pulse Ox 97 O2 Delivery Room Air Progress Progress Note #1: Time: 11:05 Progress Note Maxillary sinusitis versus GCA versus other? She has no neurologic symptoms by history or examination. We'll get a visual acuity screening and just monitor her blood pressure over the next 15-30 minutes is. Since she took 400 mg of ibuprofen 2 hours ago we will give her one half dose of Toradol and some Tylenol and allow her to rest. CRP, ESR, labs. Progress Note #2: Time: 12:42 Progress Note TSH is mildly suppressed however her free T4 is okay so we will have her keep same Synthroid dosage. The fentanyl corrected her headache entirely as well as her blood pressure significantly dropped down to 160s and 170s systolic. I suspect that her pain of her headache is driving her blood pressure. Plan is to put her on appropriate doses of Tylenol, Motrin and Augmentin for possible maxillary sinusitis and on tramadol for breakthrough pain. Follow-up primary care if symptoms are not improving by day 3 or 4. We've given her return precautions for any neurologic symptoms to return to the ER. Departure Impression Primary Impression: Maxillary sinusitis, acute Qualified Codes: J01.00 - Acute maxillary sinusitis, unspecified Additional Impressions: Hypertension Qualified Codes: I10 - Essential (primary) hypertension Elevated hemoglobin Disposition: 01 HOME, SELF-CARE Condition: Stable Departure-Patient Inst. Decision time for Depature: 12:44 Referrals: [facility] (PCP[facility]Family) Primary Care Physician Patient Instructions: Sinusitis, Adult (DC), High Blood Pressure in Adults Add. Discharge Instructions: Continue to take her Synthroid and blood pressure medicines as prescribed. For headache use Tylenol 1000 mg every 8 hours in addition to ibuprofen 800 mg every 8 hours. For breakthrough pain use the tramadol 1 tablet every 6 hours. If you cannot control your pain or have other symptoms such as nausea vomiting, fever, weakness, numbness, visual changes, slurred speech or facial droop then please return to the nearest ER immediately. Plan to follow up in the next week or 2 with primary care for reexamination of your headache symptoms, high blood pressure as well as your high hemoglobin. Scripts Tramadol HCl (Tramadol HCl) 50 Mg Tablet 50 MG PO Q6H PRN for BREAKTHROUGH PAIN, #14 TAB 0 Refills Prov: YULIANA KAY 02/13/19 Work/School Note: Work Release Form Date Seen in the Emergency Department: Feb 13, 2019 Return to Work: Feb 14, 2019 Restrictions: No Restrictions YULIANA KAY Feb 13, 2019 11:02
[2019-02-13 11:13] LABS: BASOPHILS % (AUTO) 1 % (0-10); EOSINOPHILS # (AUTO) 0.1 10^3/uL (0.0-0.3); EOSINOPHILS % (AUTO) 1 % (0-10); HEMATOCRIT 48 % (35-52); HEMOGLOBIN 16.8 G/DL (11.5-16.0); LYMPHOCYTES # (AUTO) 1.8 X 10^3 (1.0-4.0); LYMPHOCYTES % (AUTO) 28 % (12-44); MEAN CORPUSCULAR HEMOGLOBIN 32 PG (25-34); MEAN CORPUSCULAR HGB CONC 35 G/DL (32-36); MEAN CORPUSCULAR VOLUME 93 FL (80-99); MEAN PLATELET VOLUME 8.8 FL (7.4-10.4); MONOCYTES # (AUTO) 0.3 X 10^3 (0.0-1.0); MONOCYTES % (AUTO) 5 % (0-12); NEUTROPHILS # (AUTO) 4.1 X 10^3 (1.8-7.8); NEUTROPHILS % (AUTO) 65 % (42-75); PLATELET COUNT 219 10^3/uL (130-400); RED CELL DISTRIBUTION WIDTH 13.1 % (10.0-14.5); WHITE BLOOD COUNT 6.3 10^3/uL (4.3-11.0)
[2019-02-13] MEDS ORDERED: hydrALAZINE (APESOLINE) 20 MG/ML VIAL IV ONE (11:15)
[2019-02-13 11:34] LABS: ALANINE AMINOTRANSFERASE 27 U/L (0-55); ALBUMIN 4.5 GM/DL (3.2-4.5); ALKALINE PHOSPHATASE 151 U/L (40-136); BILIRUBIN,TOTAL 0.6 MG/DL (0.1-1.0); BUN/CREATININE RATIO 18; CALCIUM 9.6 MG/DL (8.5-10.1); CARBON DIOXIDE 21 MMOL/L (21-32); CHLORIDE 106 MMOL/L (98-107); CREATININE SERUM 0.71 MG/DL (0.60-1.30); ERYTHROCYTE SEDIMENTATION RATE 1 MM/HR (0-30); GFR ESTIMATED > 60; GLUCOSE 101 MG/DL (70-105); MAGNESIUM 2.2 MG/DL (1.8-2.4); POTASSIUM 4.5 MMOL/L (3.6-5.0); SODIUM 137 MMOL/L (135-145); TOTAL PROTEIN 7.4 GM/DL (6.4-8.2)
[2019-02-13] MEDS ORDERED: fentaNYL INJECTION 100 MCG/2 ML AMP IVP ONE (12:00)
[2019-02-13] MEDS ORDERED: FAMOTIDINE 20 MG (PEPCID) TABLET PO STA (12:17)
[2019-02-13] MEDS ORDERED: ANTACID SUSP 30 ML UDC (MYLANTA) PO ONE (12:30)
[2019-02-13] MEDS ORDERED: LIDOCAINE 2% VISCOUS 15 ML UDC PO ONE (12:30)
[2019-02-13] MEDS ORDERED: TRAM50TA2 PO (12:47)
[2019-02-13 13:00] VITALS: BP 186/108
== END 2019-02-13 13:00 | disposition home or self-care (01) ==
LOC: EDUNIT# 10:37 → ER 10:38
DX: J01.00 Acute maxillary sinusitis, unspecified (principal); I10 Essential (primary) hypertension; R71.8 Other abnormality of red blood cells; E03.9 Hypothyroidism, unspecified; F41.9 Anxiety disorder, unspecified; F10.20 Alcohol dependence, uncomplicated; K21.9 Gastro-esophageal reflux disease without esophagitis; F12.10 Cannabis abuse, uncomplicated; F17.210 Nicotine dependence, cigarettes, uncomplicated; Z90.49 Acquired absence of other specified parts of digestive tract; Z85.850 Personal history of malignant neoplasm of thyroid; Z92.21 Personal history of antineoplastic chemotherapy; Z90.710 Acquired absence of both cervix and uterus; Z90.89 Acquired absence of other organs; Z87.19 Personal history of other diseases of the digestive system; Z88.2 Allergy status to sulfonamides; Z91.041 Radiographic dye allergy status
CPT/HCPCS: 36415; 80053; 83735; 84439; 84443; 85025; 85652; 86141; 96374; 96375

== ENCOUNTER 2019-10-08 10:20 | Emergency (ER) | payer SELFPAY ==
[~2019-10-08] VITALS: Ht 160 cm; Wt 63.6 kg
[~2019-10-08 10:20] MED LIST changes: +TRM50T PO
--- NOTE | 2019-10-08 11:05 | ED General ---
General Chief Complaint: Neurological Problems Stated Complaint: SLURRED SPEECH,BP HIGH Source of Information: Patient Exam Limitations: No Limitations History of Present Illness Date Seen by Provider: Oct 08, 2019 Time Seen by Provider: 10:50 Initial Comments 54-year-old female who presents to the emergency room for complaints of vague symptoms of right knee pain right shoulder pain and pain in her fourth and fifth fingers of her left hand. She denies injury. She is concerned that she might have a blood clot in her right lower extremity because her knee has been feeling tight for the past week. She reports family history of DVTs. She also reports that for the past year she has been having episodes where her tongue becomes cold and then goes numb and affects her speech making slurred. She reports that this started after she had her thyroidectomy. She is alert and oriented on arrival to the emergency room and other than the pain in her right knee she denies current symptoms. She reports history of high blood pressure and is on 3 different medications for this. Timing/Duration: 1 Week Allergies and Home Medications Allergies Coded Allergies: Sulfa (Sulfonamide Antibiotics) (Verified Allergy, Severe, TONGUE SWELLING, 07/26/18) erythromycin base (Unverified Allergy, Severe, TONGUE SWELLING, 07/26/18) morphine (Verified Allergy, Unknown, 10/08/19) Home Medications Atenolol 50 Mg Tablet, 50 MG PO DAILY, (Reported) Buspirone HCl 10 Mg Tablet, 10 MG PO HS, (Reported) Levothyroxine Sodium 150 Mcg Tablet, 150 MCG PO DAILY, (Reported) Losartan Potassium 50 Mg Tablet, 50 MG PO BID, (Reported) Nitrofurantoin Monohyd/M-Cryst 100 Mg Capsule, 1 TAB PO BID Prescribed by: LINDY LOPEZ on 10/08/19 1315 Tramadol HCl 50 Mg Tablet, 50 MG PO Q6H PRN for BREAKTHROUGH PAIN Prescribed by: YULIANA KAY on 02/13/19 1247 Patient Home Medication List Home Medication List Reviewed: Yes Review of Systems Review of Systems Constitutional: see HPI; No chills, No fever Musculoskeletal: see HPI, joint pain (right knee, right shoulder, left hand pain) All Other Systems Reviewed Negative Unless Noted: Yes Past Xvdbtgf-Pbtqxd-Vjyclt Hx Past Med/Social Hx: Reviewed Nursing Past Med/Soc Hx Patient Social History Alcohol Use: Regular Use Number of Drinks Today: AA Alcohol Beverage of Choice: Beer Recreational Drug Use: Yes Drug of Choice: MARIJUANA Smoking Status: Current Everyday Smoker Type Used: Cigarettes 2nd Hand Smoke Exposure: Yes Recent Foreign Travel: No Contact w/Someone Who Travel: No Recent Hopitalizations: No Physical Abuse: No Sexual Abuse: No Mistreated: No Fear: No Immunizations Up To Date Tetanus Booster (TDap): Unknown Seasonal Allergies Seasonal Allergies: No Past Medical History Surgeries: Yes (abdominal aneurysm repair,) Abdominal, Adenoidectomy, Appendectomy, Gallbladder, Hysterectomy, Thyroidectomy, Tonsillectomy, Vascular Surgery Respiratory: No Currently Using CPAP: No Currently Using BIPAP: No Cardiac: Yes (AAA REPAIR) Aneurysm, Hypertension, Syncope Neurological: Yes TIA Reproductive Disorders: No Sexually Transmitted Disease: No HIV/AIDS: No Genitourinary: No Gastrointestinal: Yes (BLEEDING) Gastroesophageal Reflux, Chronic Constipation, Chronic Diarrhea Musculoskeletal: Yes Arthritis Endocrine: Yes Hypothyroidsim HEENT: No Loss of Vision: Denies Hearing Impairment: Denies Cancer: Yes Thyroid Did You Recieve Any Treatments: Yes What Type of Treatment Did You: Radiation, Surgical Intervention Psychosocial: Yes (alcohol dependence, anxiety) Anxiety Integumentary: Yes Psoriasis Blood Disorders: No Adverse Reaction/Blood Tranf: No (HAS HAD BLOOD WITH NO REACTION) Family Medical History Reviewed Nursing Family Hx Cancer Physical Exam Vital Signs Vital Signs - First Documented 10/08/19 10:52 Temp 36.5 Pulse 59 Resp 16 B/P (MAP) 158/99 (118) Pulse Ox 94 Capillary Refill : Height, Weight, BMI Height: 5'3.00" Weight: 137lbs. 0.0oz. [id number]; 23.4 BMI Method:Stated General Appearance: No Apparent Distress, WD/WN Eyes: Bilateral Eye Normal Inspection, Bilateral Eye PERRL, Bilateral Eye EOMI HEENT: PERRL/EOMI, TMs Normal, Normal ENT Inspection, Pharynx Normal Neck: Full Range of Motion, Normal Inspection, Non Tender, Supple, Carotid Bruit Respiratory: Chest Non Tender, Lungs Clear, Normal Breath Sounds, No Accessory Muscle Use, No Respiratory Distress Cardiovascular: Regular Rate, Rhythm, No Edema, No Gallop, No JVD, No Murmur, Normal Peripheral Pulses Gastrointestinal: Normal Bowel Sounds, No Organomegaly, No Pulsatile Mass, Non Tender, Soft Extremity: Normal Capillary Refill, Normal Inspection, Normal Range of Motion, Non Tender, No Calf Tenderness, No Pedal Edema, Other (no swelling noted on exam of right lower extremity. Normal distal pulses and capillary refill) Neurologic/Psychiatric: Alert, Oriented x3, Normal Mood/Affect Skin: Normal Color, Warm/Dry Progress/Results/Core Measures Suspected Sepsis SIRS Temperature: Pulse: Respiratory Rate: Laboratory Tests 10/08/19 11:11: White Blood Count 6.7 Blood Pressure / Mean: Laboratory Tests 10/08/19 11:11: Platelet Count 319 10/08/19 11:37: Creatinine 0.67, Total Bilirubin 0.4 Results/Orders Lab Results Laboratory Tests Test 10/08/19 11:10 10/08/19 11:11 10/08/19 11:37 Range/Units Urine Color YELLOW Urine Clarity CLEAR Urine pH 6.0 5-9 Urine Specific [place] 1.020 1.016-1.022 Urine Protein NEGATIVE NEGATIVE Urine Glucose (UA) NEGATIVE NEGATIVE Urine Ketones NEGATIVE NEGATIVE Urine Nitrite NEGATIVE NEGATIVE Urine Bilirubin NEGATIVE NEGATIVE Urine Urobilinogen 0.2 < = 1.0 MG/DL Urine Leukocyte Esterase NEGATIVE NEGATIVE Urine RBC (Auto) NEGATIVE NEGATIVE Urine RBC NONE /HPF Urine WBC NONE /HPF Urine Squamous Epithelial Cells 0-2 /HPF Urine Crystals NONE /LPF Urine Bacteria NEGATIVE /HPF Urine Casts NONE /LPF Urine Mucus NEGATIVE /LPF Urine Culture Indicated NO Urine Opiates Screen NEGATIVE NEGATIVE Urine Oxycodone Screen NEGATIVE NEGATIVE Urine Methadone Screen NEGATIVE NEGATIVE Urine Propoxyphene Screen NEGATIVE NEGATIVE Urine Barbiturates Screen NEGATIVE NEGATIVE Ur Tricyclic Antidepressants Screen NEGATIVE NEGATIVE Urine Phencyclidine Screen NEGATIVE NEGATIVE Urine Amphetamines Screen NEGATIVE NEGATIVE Urine Methamphetamines Screen NEGATIVE NEGATIVE Urine Benzodiazepines Screen NEGATIVE NEGATIVE Urine Cocaine Screen NEGATIVE NEGATIVE Urine Cannabinoids Screen POSITIVE H NEGATIVE White Blood Count 6.7 4.3-11.0 10^3/uL Red Blood Count 4.90 4.35-5.85 10^6/uL Hemoglobin 15.5 11.5-16.0 G/DL Hematocrit 45 35-52 % Mean Corpuscular Volume 92 80-99 FL Mean Corpuscular Hemoglobin 32 25-34 PG Mean Corpuscular Hemoglobin Concent 34 32-36 G/DL Red Cell Distribution Width 12.9 10.0-14.5 % Platelet Count 319 130-400 10^3/uL Mean Platelet Volume 10.4 7.4-10.4 FL Neutrophils (%) (Auto) 58 42-75 % Lymphocytes (%) (Auto) 32 12-44 % Monocytes (%) (Auto) 7 0-12 % Eosinophils (%) (Auto) 3 0-10 % Basophils (%) (Auto) 1 0-10 % Neutrophils # (Auto) 3.8 1.8-7.8 X 10^3 Lymphocytes # (Auto) 2.2 1.0-4.0 X 10^3 Monocytes # (Auto) 0.4 0.0-1.0 X 10^3 Eosinophils # (Auto) 0.2 0.0-0.3 10^3/uL Basophils # (Auto) 0.0 0.0-0.1 10^3/uL D-Dimer 0.85 H 0.00-0.49 UG/ML Sodium Level 138 135-145 MMOL/L Potassium Level 4.1 3.6-5.0 MMOL/L Chloride Level 107 98-107 MMOL/L Carbon Dioxide Level 23 21-32 MMOL/L Anion Gap 8 5-14 MMOL/L Blood Urea Nitrogen 17 7-18 MG/DL Creatinine 0.67 0.60-1.30 MG/DL Estimat Glomerular Filtration Rate > 60 BUN/Creatinine Ratio 25 Glucose Level 106 H 70-105 MG/DL Calcium Level 9.3 8.5-10.1 MG/DL Corrected Calcium 8.9 8.5-10.1 MG/DL Total Bilirubin 0.4 0.1-1.0 MG/DL Aspartate Amino Transf (AST/SGOT) 24 5-34 U/L Alanine Aminotransferase (ALT/SGPT) 32 0-55 U/L Alkaline Phosphatase 132 40-136 U/L Total Protein 7.1 6.4-8.2 GM/DL Albumin 4.5 3.2-4.5 GM/DL TSH [place] Testing 0.64 0.35-4.94 UIU/ML My Orders Orders - LINDY LOPEZ Comprehensive Metabolic Panel (10/08/19 11:00) Ua Culture If Indicated (10/08/19 11:00) Ed Iv/Invasive Line Start (10/08/19 11:00) Cbc With Automated Diff (10/08/19 11:00) Fibrin Degradation Products (10/08/19 11:00) Thyroid Analyzer (10/08/19 11:00) Us Venous Lower Ext Rt (10/08/19 12:20) Drug Screen Stat (Urine) (10/08/19 12:35) Vital Signs/I&O 10/08/19 10/08/19 10:52 13:27 Temp 36.5 Pulse 59 85 Resp 16 16 B/P (MAP) 158/99 (118) 152/77 Pulse Ox 94 99 Capillary Refill : Progress Note : Time: 13:15 Progress Note I have seen and evaluated the patient. I've informed her of her laboratory and imaging studies. She believes that the sensation that she is feeling in her tongue is related to her surgery since that started shortly after her thyroi dectomy. She agrees with plan of care, plans for discharge, return precautions were given. Departure Impression Primary Impression: UTI (urinary tract infection) Additional Impression: Arthritic-like pain Disposition: 01 HOME, SELF-CARE Condition: Stable/Unchanged Departure-Patient Inst. Decision time for Depature: 13:15 Referrals: [facility] (PCP/Family) Primary Care Physician Patient Instructions: Urinary Tract Infection, Adult (DC), Muscle and Bone Pain (DC) Add. Discharge Instructions: You may use ibuprofen and Tylenol as needed for pain relief. You may benefit from a long-acting anti-inflammatory such as a Aleve [id number]. Drink plenty of fluids to stay hydrated and help flush out your kidneys. Take antibiotic as directed. Call today to schedule an appointment for close follow- up with Dayana Anderson at [facility]. All discharge instructions reviewed with patient and/or family. Voiced understanding. Scripts Nitrofurantoin Monohyd/M-Cryst (Macrobid 100 mg Capsule) 100 Mg Capsule 1 TAB PO BID for 7 Days, #14 CAP Prov: LINDY LOPEZ 10/08/19 LINDY LOPEZ Oct 08, 2019 11:05
[2019-10-08 11:14] LABS: BILIRUBIN,URINE NEGATIVE (NEGATIVE); CLARITY,URINE CLEAR; COLOR,URINE YELLOW; GLUCOSE, URINE (UA) NEGATIVE (NEGATIVE); KETONES,URINE NEGATIVE (NEGATIVE); LEUKOCYTE ESTERASE ,URINE NEGATIVE (NEGATIVE); NITRITE,URINE NEGATIVE (NEGATIVE); PROTEIN,URINE NEGATIVE (NEGATIVE)
[2019-10-08 11:19] LABS: BASOPHILS % (AUTO) 1 % (0-10); EOSINOPHILS # (AUTO) 0.2 10^3/uL (0.0-0.3); EOSINOPHILS % (AUTO) 3 % (0-10); HEMATOCRIT 45 % (35-52); HEMOGLOBIN 15.5 G/DL (11.5-16.0); LYMPHOCYTES # (AUTO) 2.2 X 10^3 (1.0-4.0); LYMPHOCYTES % (AUTO) 32 % (12-44); MEAN CORPUSCULAR HEMOGLOBIN 32 PG (25-34); MEAN CORPUSCULAR HGB CONC 34 G/DL (32-36); MEAN CORPUSCULAR VOLUME 92 FL (80-99); MEAN PLATELET VOLUME 10.4 FL (7.4-10.4); MONOCYTES # (AUTO) 0.4 X 10^3 (0.0-1.0); MONOCYTES % (AUTO) 7 % (0-12); NEUTROPHILS # (AUTO) 3.8 X 10^3 (1.8-7.8); NEUTROPHILS % (AUTO) 58 % (42-75); PLATELET COUNT 319 10^3/uL (130-400); RED CELL DISTRIBUTION WIDTH 12.9 % (10.0-14.5); WHITE BLOOD COUNT 6.7 10^3/uL (4.3-11.0)
[2019-10-08 11:22] LABS: BACTERIA,URINE NEGATIVE /HPF
[2019-10-08 11:23] LABS: SQUAMOUS EPITHELIAL CELL,UR 0-2 /HPF
[2019-10-08 12:05] LABS: ALANINE AMINOTRANSFERASE 32 U/L (0-55); ALBUMIN 4.5 GM/DL (3.2-4.5); ALKALINE PHOSPHATASE 132 U/L (40-136); BILIRUBIN,TOTAL 0.4 MG/DL (0.1-1.0); BUN/CREATININE RATIO 25; CALCIUM 9.3 MG/DL (8.5-10.1); CARBON DIOXIDE 23 MMOL/L (21-32); CHLORIDE 107 MMOL/L (98-107); CREATININE SERUM 0.67 MG/DL (0.60-1.30); GFR ESTIMATED > 60; GLUCOSE 106 MG/DL (70-105); POTASSIUM 4.1 MMOL/L (3.6-5.0); SODIUM 138 MMOL/L (135-145); TOTAL PROTEIN 7.1 GM/DL (6.4-8.2)
[2019-10-08 12:54] LABS: AMPHETAMINE SCREEN, URINE NEGATIVE (NEGATIVE); BARBITURATE SCREEN URINE NEGATIVE (NEGATIVE); BENZODIAZEPINES SCREEN URINE NEGATIVE (NEGATIVE); CANNABINOID SCREEN, URINE POSITIVE (NEGATIVE); COCAINE SCREEN URINE NEGATIVE (NEGATIVE); METHADONE STAT NEGATIVE (NEGATIVE); METHAMPHETAMINE SCREEN URINE S NEGATIVE (NEGATIVE); OPIATE SCREEN URINE NEGATIVE (NEGATIVE); OXYCODONE STAT NEGATIVE (NEGATIVE); PROPOXYPHENE STAT NEGATIVE (NEGATIVE); TRICYCLIC ANTIDEPRESSANTS SCRE NEGATIVE (NEGATIVE)
--- NOTE | 2019-10-08 13:11 | Diagnostic Imaging Report ---
INDICATION: Right leg pain. Right leg venous Doppler study was performed in the routine fashion with color flow Doppler and waveform analysis. FINDINGS: The right common femoral vein, superficial femoral vein, popliteal vein and visualized portion of the tibial veins show normal compressibility and venous flow patterns. There is normal augmentation. IMPRESSION: No evidence of deep vein thrombosis of the major veins of the right leg. Dictated by: Dictated on workstation # [id number]
[2019-10-08] MEDS ORDERED: NITR-65 PO (13:15)
[2019-10-08 13:27] VITALS: BP 152/77
== END 2019-10-08 13:26 | disposition home or self-care (01) ==
LOC: EDUNIT# 10:20 → ER 10:21
DX: N39.0 Urinary tract infection, site not specified (principal); M25.50 Pain in unspecified joint; I10 Essential (primary) hypertension; E03.9 Hypothyroidism, unspecified; F17.210 Nicotine dependence, cigarettes, uncomplicated; Z85.850 Personal history of malignant neoplasm of thyroid; Z86.73 Personal history of transient ischemic attack (TIA), and cerebral infarction without residual deficits; Z90.89 Acquired absence of other organs; Z90.49 Acquired absence of other specified parts of digestive tract; Z90.710 Acquired absence of both cervix and uterus; Z88.2 Allergy status to sulfonamides; Z88.1 Allergy status to other antibiotic agents; Z88.5 Allergy status to narcotic agent
CPT/HCPCS: 36415; 80053; 80306; 81000; 84443; 85025; 85379

== ENCOUNTER → 2019-10-23 | Outpatient (CLI) | payer OTHER ==
[~2019-10-23] MED LIST changes: +GADOBUTROL 10 MMOL/10 ML (GADAVIST) VIAL IV ONE; +NITR-65 PO
[2019-10-23 09:43] LABS: ALANINE AMINOTRANSFERASE 45 U/L (0-55); ALBUMIN 4.8 GM/DL (3.2-4.5); ALKALINE PHOSPHATASE 152 U/L (40-136); BILIRUBIN,TOTAL 0.4 MG/DL (0.1-1.0); BUN/CREATININE RATIO 28; CALCIUM 9.6 MG/DL (8.5-10.1); CARBON DIOXIDE 23 MMOL/L (21-32); CHLORIDE 103 MMOL/L (98-107); CREATININE SERUM 0.78 MG/DL (0.60-1.30); GFR ESTIMATED > 60; GLUCOSE 115 MG/DL (70-105); POTASSIUM 4.7 MMOL/L (3.6-5.0); SODIUM 136 MMOL/L (135-145); TOTAL PROTEIN 7.8 GM/DL (6.4-8.2)
--- NOTE | 2019-10-23 11:20 | Diagnostic Imaging Report ---
PROCEDURE: MR imaging of the brain with and without contrast. TECHNIQUE: Multiplanar, multisequence MR imaging of the brain was performed with and without contrast. INDICATION: TIA. Speech difficulty. Dizziness. COMPARISON: CT head on 08/31/2017. FINDINGS: No acute ischemia, mass, or hemorrhage. No abnormal enhancement. Focal areas of T2/FLAIR hyperintense signal are visualized in the periventricular and subcortical white matter. Focal encephalomalacia is seen in the head of the left caudate. The ventricles, cortical sulci, and basilar cisterns are symmetric and unremarkable. The sellar and suprasellar regions have a normal appearance. The brainstem and posterior fossa are unremarkable. The paranasal sinuses and mastoid air cells demonstrate normal signal characteristics. The globes and orbits are symmetric and unremarkable. The scalp and calvarium have a normal appearance. IMPRESSION: 1. No acute ischemia, mass, or hemorrhage. No abnormal enhancement. 2. Multiple focal areas of T2/FLAIR hyperintense signal in the periventricular and subcortical white matter. The distribution is somewhat suggestive of multiple sclerosis. Chronic microvascular disease can also have this appearance. Recommend correlation with patient history and symptoms and if indicated CSF analysis. 3. Focal encephalomalacia in the head of the left caudate, suggestive of prior lacunar infarct. Dictated by: Dictated on workstation # [id number]
== END ==
LOC: RAD 09:08
PROVIDERS: ATTEND Nurse Practitioner Primary Care
DX: G45.9 Transient cerebral ischemic attack, unspecified (principal); G93.89 Other specified disorders of brain
CPT/HCPCS: 36415; 70553; 80053

== ENCOUNTER 2020-01-21 11:44 | Emergency (ER) | payer OTHER ==
[~2020-01-21] VITALS: Ht 160 cm; Wt 63.6 kg
[~2020-01-21 11:44] MED LIST changes: -GADOBUTROL 10 MMOL/10 ML (GADAVIST) VIAL IV ONE
[2020-01-21] MEDS ORDERED: fentaNYL INJECTION 100 MCG/2 ML AMP IVP STA (12:03)
[2020-01-21 12:13] LABS: BASOPHILS % (AUTO) 1 % (0-10); EOSINOPHILS # (AUTO) 0.2 10^3/uL (0.0-0.3); EOSINOPHILS % (AUTO) 2 % (0-10); HEMATOCRIT 50 % (35-52); HEMOGLOBIN 16.7 G/DL (11.5-16.0); LYMPHOCYTES # (AUTO) 2.2 X 10^3 (1.0-4.0); LYMPHOCYTES % (AUTO) 27 % (12-44); MEAN CORPUSCULAR HEMOGLOBIN 31 PG (25-34); MEAN CORPUSCULAR HGB CONC 34 G/DL (32-36); MEAN CORPUSCULAR VOLUME 92 FL (80-99); MEAN PLATELET VOLUME 9.3 FL (7.4-10.4); MONOCYTES # (AUTO) 0.6 X 10^3 (0.0-1.0); MONOCYTES % (AUTO) 7 % (0-12); NEUTROPHILS # (AUTO) 5.2 X 10^3 (1.8-7.8); NEUTROPHILS % (AUTO) 64 % (42-75); PLATELET COUNT 277 10^3/uL (130-400); RED CELL DISTRIBUTION WIDTH 13.7 % (10.0-14.5); WHITE BLOOD COUNT 8.1 10^3/uL (4.3-11.0)
[2020-01-21] MEDS ORDERED: AMLO5TAB4 PO (12:15)
[2020-01-21] MEDS ORDERED: ONDANSETRON 4 MG/2 ML (SDV) Z0FRAN IVP ONE (12:15)
[2020-01-21] MEDS ORDERED: CLOP75TA69 PO (12:15)
[2020-01-21 12:16] LABS: CHLORIDE 104 MMOL/L (98-107); POTASSIUM 4.5 MMOL/L (3.6-5.0); SODIUM 135 MMOL/L (135-145)
[2020-01-21 12:17] LABS: CALCIUM 9.9 MG/DL (8.5-10.1)
[2020-01-21 12:18] LABS: GLUCOSE 117 MG/DL (70-105); TOTAL PROTEIN 8.3 GM/DL (6.4-8.2)
[2020-01-21 12:19] LABS: CARBON DIOXIDE 20 MMOL/L (21-32)
[2020-01-21 12:20] LABS: BILIRUBIN,TOTAL 0.8 MG/DL (0.1-1.0)
[2020-01-21 12:21] LABS: ALKALINE PHOSPHATASE 166 U/L (40-136)
[2020-01-21 12:22] LABS: CREATININE SERUM 0.83 MG/DL (0.60-1.30); GFR ESTIMATED > 60
[2020-01-21 12:23] LABS: BUN/CREATININE RATIO 14
[2020-01-21 12:24] LABS: MAGNESIUM 2.2 MG/DL (1.6-2.4)
[2020-01-21 12:25] LABS: ALANINE AMINOTRANSFERASE 31 U/L (0-55)
--- NOTE | 2020-01-21 12:31 | Diagnostic Imaging Report ---
PROCEDURE: CT head wo r/o stroke. TECHNIQUE: Multiple contiguous axial images were obtained through the brain without the use of intravenous contrast. Auto Exposure Controls were utilized during the CT exam to meet ALARA standards for radiation dose reduction. INDICATION: Headaches for one day. COMPARISON: Prior head CT from 08/31/2017. FINDINGS: The ventricles and sulci are within normal limits. There does appear to be patchy periventricular low density. This correlates to the white matter changes noted on MRI in October 2019. No midline shift is identified. No acute intra-axial or extra-axial hemorrhage is detected. The cisterns are patent. The visualized paranasal sinuses are clear. IMPRESSION: Periventricular white matter changes, correlating with the abnormalities noted on the recent MRI. This could be owing to chronic microvascular ischemia versus mass. No acute intracranial hemorrhage is detected. Dictated by: Dictated on workstation # [id number]
--- NOTE | 2020-01-21 12:46 | ED General ---
General Chief Complaint: Neurological Problems Stated Complaint: CONFUSION,SLURRED SPEECH Nursing Triage Note: PT AMBULTATED TO ROOM 5 PT CO OF GARCIA 04/19, STATES LAST EVENING SHE HAD NUMBNESS OF HER TONGUE AND IT TURNED WHITE, SPEECH SL SLURRED, L HAND FIRST FINGER SWELLED AND VEIN IN HAND BECAME PROMINENT. STATES LASTED ABOUT 20MIN THEN RESOLVED HAS HAD GARCIA SINCE. Nursing Sepsis Screen: No Definite Risk Source of Information: Patient Exam Limitations: No Limitations History of Present Illness Date Seen by Provider: January 21, 2020 Time Seen by Provider: 11:55 Initial Comments Here with a variety of complaints including tongue turning white, slurred speech and left hand swelling. This has occurred intermittently for several months. She had MRI about 2 months ago regarding this and did not have any significant gross abnormalities although there was concerns about microvascular disease. Speech and tongue problem occurred again yesterday. She is on Plavix. She does have a headache. Headache worsened a little today. She called her primary care provider who wanted her to check into the emergency department for evaluation. Denies chest pain, breathing problems, nausea, vomiting or diarrhea. Does have blood pressure problems and is on a few meds for that.Patient was able to drive herself to the emergency department without deficit or difficulty. Currently having no difficulty with movement including weakness or numbness. Timing/Duration: Changing Over Time, Intermittent Severity: Moderate Modifying Factors: improves with Rest Associated Systoms: No Chest Pain, No Cough, No Fever/Chills; Headaches; No Nausea/Vomiting, No Shortness of Air; Weakness Allergies and Home Medications Allergies Coded Allergies: Sulfa (Sulfonamide Antibiotics) (Verified Allergy, Severe, TONGUE SWELLING, 07/26/18) erythromycin base (Unverified Allergy, Severe, TONGUE SWELLING, 07/26/18) morphine (Verified Allergy, Unknown, 10/08/19) Home Medications Amlodipine Besylate 5 Mg Tablet, Unknown Dose PO DAILY, (Reported) Atenolol 50 Mg Tablet, 50 MG PO DAILY, (Reported) Buspirone HCl 10 Mg Tablet, 10 MG PO HS, (Reported) Clopidogrel Bisulfate 75 Mg Tablet, Unknown Dose PO DAILY, (Reported) Levothyroxine Sodium 150 Mcg Tablet, 150 MCG PO DAILY, (Reported) Losartan Potassium 50 Mg Tablet, 50 MG PO BID, (Reported) Tramadol HCl 50 Mg Tablet, 50 MG PO Q6H PRN for BREAKTHROUGH PAIN Prescribed by: YULIANA KAY on 02/13/19 1247 Patient Home Medication List Home Medication List Reviewed: Yes Review of Systems Review of Systems Constitutional: see HPI; No chills, No fever EENTM: see HPI; No mouth swelling, No throat swelling Respiratory: No cough, No short of breath Cardiovascular: see HPI; No chest pain, No edema Gastrointestinal: No abdominal pain, No nausea, No vomiting Genitourinary: no symptoms reported Musculoskeletal: see HPI, muscle pain, muscle stiffness Skin: change in color; No lesions Psychiatric/Neurological: Headache (posterior aspect with moderate fullness and pressure noted) Hematologic/Lymphatic: Denies Anemia; Easy Bruising Immunological/Allergic: no symptoms reported All Other Systems Reviewed Negative Unless Noted: Yes Past Pbzuayh-Wvrxbw-Npajyb Hx Past Med/Social Hx: Reviewed Nursing Past Med/Soc Hx Patient Social History Alcohol Use: Occasionally Uses Number of Drinks Today: 0 Alcohol Beverage of Choice: Beer Recreational Drug Use: Yes Drug of Choice: MARIJUANA Smoking Status: Current Everyday Smoker Type Used: Cigarettes 2nd Hand Smoke Exposure: Yes Recent Foreign Travel: No Contact w/Someone Who Travel: No Recent Infectious Disease Expo: No Recent Hopitalizations: No Physical Abuse: No Sexual Abuse: No Immunizations Up To Date Tetanus Booster (TDap): Unknown Seasonal Allergies Seasonal Allergies: No Past Medical History Surgeries: Yes (abdominal aneurysm repair,) Abdominal, Adenoidectomy, Appendectomy, Gallbladder, Hysterectomy, Thyroidectomy, Tonsillectomy, Vascular Surgery Respiratory: No Currently Using CPAP: No Currently Using BIPAP: No Cardiac: Yes (AAA REPAIR) Aneurysm, Hypertension, Syncope Neurological: Yes TIA Reproductive Disorders: No Sexually Transmitted Disease: No HIV/AIDS: No Genitourinary: No Gastrointestinal: Yes (BLEEDING) Gastroesophageal Reflux, Chronic Constipation, Chronic Diarrhea Musculoskeletal: Yes Arthritis Endocrine: Yes Hypothyroidsim HEENT: No Loss of Vision: Denies Hearing Impairment: Denies Cancer: Yes Thyroid Did You Recieve Any Treatments: Yes What Type of Treatment Did You: Radiation, Surgical Intervention Psychosocial: Yes (alcohol dependence, anxiety) Anxiety Integumentary: Yes Psoriasis Blood Disorders: No Adverse Reaction/Blood Tranf: No (HAS HAD BLOOD WITH NO REACTION) Family Medical History Reviewed Nursing Family Hx Cancer Physical Exam Vital Signs Vital Signs - First Documented 01/21/20 11:44 Temp 36.7 Pulse 72 Resp 18 B/P (MAP) 166/103 (124) Pulse Ox 100 Capillary Refill : Less Than 3 Seconds Height, Weight, BMI Height: 5'3.00" Weight: 137lbs. 0.0oz. 62.481066cg; 24.00 BMI Method:Stated General Appearance: No Apparent Distress, WD/WN HEENT: PERRL/EOMI, Pharynx Normal Neck: Non Tender, Supple Respiratory: Lungs Clear, Normal Breath Sounds Cardiovascular: Regular Rate, Rhythm, No Murmur Gastrointestinal: Non Tender, Soft Back: Normal Inspection, No CVA Tenderness, No Vertebral Tenderness Extremity: Normal Inspection, Normal Range of Motion, Non Tender, No Calf Tenderness Neurologic/Psychiatric: Alert, Oriented x3 Skin: Normal Color, Warm/Dry Progress/Results/Core Measures Suspected Sepsis Recent Fever Within 48 Hours: No Infection Criteria Present: None New/Unexplained Altered Menta: No Sepsis Screen: No Definite Risk SIRS Temperature: Pulse: 72 Respiratory Rate: 18 Laboratory Tests 01/21/20 11:50: White Blood Count 8.1 Blood Pressure 166 /103 Mean: 124 Laboratory Tests 01/21/20 11:50: Creatinine 0.83, Platelet Count 277, Total Bilirubin 0.8 Results/Orders Lab Results Laboratory Tests Test 01/21/20 11:50 01/21/20 13:04 Range/Units White Blood Count 8.1 4.3-11.0 10^3/uL Red Blood Count 5.39 4.35-5.85 10^6/uL Hemoglobin 16.7 H 11.5-16.0 G/DL Hematocrit 50 35-52 % Mean Corpuscular Volume 92 80-99 FL Mean Corpuscular Hemoglobin 31 25-34 PG Mean Corpuscular Hemoglobin Concent 34 32-36 G/DL Red Cell Distribution Width 13.7 10.0-14.5 % Platelet Count 277 130-400 10^3/uL Mean Platelet Volume 9.3 7.4-10.4 FL Neutrophils (%) (Auto) 64 42-75 % Lymphocytes (%) (Auto) 27 12-44 % Monocytes (%) (Auto) 7 0-12 % Eosinophils (%) (Auto) 2 0-10 % Basophils (%) (Auto) 1 0-10 % Neutrophils # (Auto) 5.2 1.8-7.8 X 10^3 Lymphocytes # (Auto) 2.2 1.0-4.0 X 10^3 Monocytes # (Auto) 0.6 0.0-1.0 X 10^3 Eosinophils # (Auto) 0.2 0.0-0.3 10^3/uL Basophils # (Auto) 0.0 0.0-0.1 10^3/uL D-Dimer 0.45 0.00-0.49 UG/ML Sodium Level 135 135-145 MMOL/L Potassium Level 4.5 3.6-5.0 MMOL/L Chloride Level 104 98-107 MMOL/L Carbon Dioxide Level 20 L 21-32 MMOL/L Anion Gap 11 5-14 MMOL/L Blood Urea Nitrogen 12 7-18 MG/DL Creatinine 0.83 0.60-1.30 MG/DL Estimat Glomerular Filtration Rate > 60 BUN/Creatinine Ratio 14 Glucose Level 117 H 70-105 MG/DL Calcium Level 9.9 8.5-10.1 MG/DL Corrected Calcium 8.5-10.1 MG/DL Magnesium Level 2.2 1.6-2.4 MG/DL Total Bilirubin 0.8 0.1-1.0 MG/DL Aspartate Amino Transf (AST/SGOT) 28 5-34 U/L Alanine Aminotransferase (ALT/SGPT) 31 0-55 U/L Alkaline Phosphatase 166 H 40-136 U/L Troponin I < 0.028 <0.028 NG/ML C-Reactive Protein High Sensitivity 0.15 0.00-0.50 MG/DL Total Protein 8.3 H 6.4-8.2 GM/DL Albumin 5.0 H 3.2-4.5 GM/DL Free Thyroxine 1.20 0.70-1.48 NG/DL Urine Color YELLOW Urine Clarity CLEAR Urine pH 6.5 5-9 Urine Specific [place] <=1.005 1.016-1.022 Urine Protein NEGATIVE NEGATIVE Urine Glucose (UA) NEGATIVE NEGATIVE Urine Ketones NEGATIVE NEGATIVE Urine Nitrite NEGATIVE NEGATIVE Urine Bilirubin NEGATIVE NEGATIVE Urine Urobilinogen 0.2 < = 1.0 MG/DL Urine Leukocyte Esterase NEGATIVE NEGATIVE Urine RBC (Auto) NEGATIVE NEGATIVE Urine RBC NONE /HPF Urine WBC NONE /HPF Urine Squamous Epithelial Cells 5-10 /HPF Urine Crystals NONE /LPF Urine Bacteria NEGATIVE /HPF Urine Casts NONE /LPF Urine Mucus NEGATIVE /LPF Urine Culture Indicated NO My Orders Orders - MARICHUY CORBIN MD Ct Head Wo-R/O Stroke (01/21/20 12:03) Cbc With Automated Diff (01/21/20 12:03) Comprehensive Metabolic Panel (01/21/20 12:03) Hs C Reactive Protein (01/21/20 12:03) Fibrin Degradation Products (01/21/20 12:03) Magnesium (01/21/20 12:03) Troponin I (01/21/20 12:03) Ua Culture If Indicated (01/21/20 12:03) Fentanyl Injection (Sublimaze Injection (01/21/20 12:03) Ondansetron Injection (Zofran Injectio (01/21/20 12:15) Free T4 (Free Thyroxine) (01/21/20 12:03) Ekg Tracing (01/21/20 12:26) Ketorolac Injection (Toradol Injection) (01/21/20 13:50) Medications Given in ED Current Medications Medications Dose Ordered Sig/Brigid Route Start Time Stop Time Status Last Admin Dose Admin Ondansetron HCl 4 mg ONCE ONCE IVP 01/21/20 12:15 01/21/20 12:16 DC 01/21/20 12:17 4 MG Vital Signs/I&O 01/21/20 11:44 Temp 36.7 Pulse 72 Resp 18 B/P (MAP) 166/103 (124) Pulse Ox 100 Capillary Refill : Less Than 3 Seconds Blood Pressure Mean: 124 Progress Note : Progress Note Seen and evaluated. IV, labs, chest x-ray, EKG and CT head ordered. No focal weakness or paresthesias noted currently. No concerning findings for stroke and no indication for TPA currently. Stroke scale would be 0. Monitor patient. 1355: Toradol 15 mg IV. Overall her headache is much better and she feels safe going home. Current findings discussed with the patient. She still has some abnormalities on the CT scan or also noted on MRI. This will need to be continued to be followed up in the outpatient setting. I will send a copy of the chart to the clinic. This was discussed with the patient as well. She will follow-up with the clinic. Discharged home with return precautions. Patient verbalize understanding instructions and agreement with plan. ECG Initial ECG Impression Date: January 21, 2020 Initial ECG Impression Time: 11:59 Initial ECG Rate: 67 Initial ECG Rhythm: Normal Sinus Initial ECG Comparisson: Unchanged Comment Sinus rhythm with normal axis. No evidence of ST elevation [place]. Similar to previous of 08/31/17. Interpreted by me. Diagnostic Imaging Diagonstic Imaging: CT Plain Films/CT/US/NM/MRI: head Comments [facility] [place], [place] NAME: RICHARD NEGRON [facility] REC#: [id number] PT STATUS: REG ER : 1965 PHYSICIAN: MARICHUY CORBIN MD ADMIT DATE: 01/21/20/ER Draft Date of Exam:01/21/20 CT HEAD WO-R/O STROKE PROCEDURE: CT head wo r/o stroke. TECHNIQUE: Multiple contiguous axial images were obtained through the brain without the use of intravenous contrast. Auto Exposure Controls were utilized during the CT exam to meet ALARA standards for radiation dose reduction. INDICATION: Headaches for one day. COMPARISON: Prior head CT from 08/31/2017. FINDINGS: The ventricles and sulci are within normal limits. There does appear to be patchy periventricular low density. This correlates to the white matter changes noted on MRI in October 2019. No midline shift is identified. No acute intra-axial or extra-axial hemorrhage is detected. The cisterns are patent. The visualized paranasal sinuses are clear. IMPRESSION: Periventricular white matter changes, correlating with the abnormalities noted on the recent MRI. This could be owing to chronic microvascular ischemia versus mass. No acute intracranial hemorrhage is detected. Dictated on workstation # [id number] Dict: 01/21/20 1226 Trans: 01/21/20 1231 [id number] Interpreted by: LOR WHITMORE MD Electronically signed by: Departure Impression Primary Impression: Hypertension Qualified Codes: I10 - Essential (primary) hypertension Additional Impression: Headache Qualified Codes: R51 - Headache Disposition: 01 HOME, SELF-CARE Condition: Improved Departure-Patient Inst. Decision time for Depature: 13:59 Referrals: [facility] (PCP/Family) Primary Care Physician Patient Instructions: Headache, Adult (DC), High Blood Pressure Emergencies Add. Discharge Instructions: All discharge instructions reviewed with patient and/or family. Voiced understanding. It is important that you follow-up with your doctor for recheck and further evaluation. Return for worse pain, fever, vomiting, weakness, breathing problems or other concerns as needed. Call and make appointment with your doctor for within the next week. Continue home medications as previously prescribed. Copy Copies To 1: BRODY PACE TIMOTHY D MD January 21, 2020 12:45
[2020-01-21 13:09] LABS: BILIRUBIN,URINE NEGATIVE (NEGATIVE); CLARITY,URINE CLEAR; COLOR,URINE YELLOW; GLUCOSE, URINE (UA) NEGATIVE (NEGATIVE); KETONES,URINE NEGATIVE (NEGATIVE); LEUKOCYTE ESTERASE ,URINE NEGATIVE (NEGATIVE); NITRITE,URINE NEGATIVE (NEGATIVE); PH,URINE 6.5 (5-9); PROTEIN,URINE NEGATIVE (NEGATIVE)
[2020-01-21 13:21] LABS: BACTERIA,URINE NEGATIVE /HPF
[2020-01-21] MEDS ORDERED: KETOROLAC 30 MG/ML VIAL IVP STA (13:50)
[2020-01-21 14:09] VITALS: BP 129/80
== END 2020-01-21 14:09 | disposition home or self-care (01) ==
LOC: EDUNIT# 11:44 → ER 11:45
DX: I10 Essential (primary) hypertension (principal); E03.9 Hypothyroidism, unspecified; F41.9 Anxiety disorder, unspecified; F17.210 Nicotine dependence, cigarettes, uncomplicated; Z86.73 Personal history of transient ischemic attack (TIA), and cerebral infarction without residual deficits; Z88.2 Allergy status to sulfonamides; Z88.5 Allergy status to narcotic agent; Z88.1 Allergy status to other antibiotic agents; Z79.02 Long term (current) use of antithrombotics/antiplatelets; Z85.850 Personal history of malignant neoplasm of thyroid
CPT/HCPCS: 36415; 70450; 80053; 81000; 83735; 84439; 84484; 85025; 85379; 86141; 93005

== ENCOUNTER 2020-04-09 23:57 | Emergency (ER) | payer SELFPAY ==
[~2020-04-09] VITALS: Ht 160 cm; Wt 62.0 kg
[~2020-04-09 23:57] MED LIST changes: +CLOP75TA69 PO
[2020-04-10 00:12] LABS: BASOPHILS % (AUTO) 0 % (0-10); EOSINOPHILS # (AUTO) 0.2 10^3/uL (0.0-0.3); EOSINOPHILS % (AUTO) 2 % (0-10); HEMATOCRIT 42 % (35-52); HEMOGLOBIN 14.8 G/DL (11.5-16.0); LYMPHOCYTES # (AUTO) 2.1 X 10^3 (1.0-4.0); LYMPHOCYTES % (AUTO) 29 % (12-44); MEAN CORPUSCULAR HEMOGLOBIN 32 PG (25-34); MEAN CORPUSCULAR HGB CONC 35 G/DL (32-36); MEAN CORPUSCULAR VOLUME 90 FL (80-99); MEAN PLATELET VOLUME 8.8 FL (7.4-10.4); MONOCYTES # (AUTO) 0.5 X 10^3 (0.0-1.0); MONOCYTES % (AUTO) 7 % (0-12); NEUTROPHILS # (AUTO) 4.4 X 10^3 (1.8-7.8); NEUTROPHILS % (AUTO) 62 % (42-75); PLATELET COUNT 228 10^3/uL (130-400); WHITE BLOOD COUNT 7.1 10^3/uL (4.3-11.0)
[2020-04-10] MEDS ORDERED: ONDANSETRON 4 MG/2 ML (SDV) Z0FRAN IVP ONE (00:15)
[2020-04-10] MEDS ORDERED: LIDOCAINE 2% VISCOUS 15 ML UDC PO ONE (00:15)
[2020-04-10] MEDS ORDERED: FAMOTIDINE 20MG/2ML IV (PEPCID) IVP ONE (00:15)
[2020-04-10] MEDS ORDERED: ANTACID SUSP 30 ML UDC (MYLANTA) PO ONE (00:15)
[2020-04-10 00:24] LABS: ALBUMIN 4.5 GM/DL (3.2-4.5); CHLORIDE 101 MMOL/L (98-107); INR 0.9 (0.8-1.4); POTASSIUM 3.3 MMOL/L (3.6-5.0); PROTHROMBIN TIME PATIENT 12.2 SEC (12.2-14.7); SODIUM 137 MMOL/L (135-145)
[2020-04-10 00:25] LABS: CALCIUM 8.7 MG/DL (8.5-10.1)
[2020-04-10 00:26] LABS: GLUCOSE 98 MG/DL (70-105); TOTAL PROTEIN 7.1 GM/DL (6.4-8.2)
[2020-04-10 00:27] LABS: CARBON DIOXIDE 20 MMOL/L (21-32)
[2020-04-10 00:28] LABS: BILIRUBIN,TOTAL 0.6 MG/DL (0.1-1.0)
[2020-04-10 00:30] LABS: ALKALINE PHOSPHATASE 148 U/L (40-136); CREATININE SERUM 0.77 MG/DL (0.60-1.30); GFR ESTIMATED > 60
[2020-04-10 00:31] LABS: BUN/CREATININE RATIO 14
[2020-04-10 00:33] LABS: ALANINE AMINOTRANSFERASE 77 U/L (0-55)
[2020-04-10 00:34] LABS: LIPASE 25 U/L (8-78)
[2020-04-10 01:09] LABS: FREE T4 (FREE THYROXINE) 1.29 NG/DL (0.70-1.48)
--- NOTE | 2020-04-10 01:40 | ED Chest Pain ---
General Chief Complaint: Chest Pain Stated Complaint: CP Nursing Triage Note: TO ED [facility]IA [facility] TO ROOM 7 WITH C/O LAYING IN BED AND SUDDEN ONSET CP TO EPIGASTRIC REGION. TOOK 3 TUMS WITH NO RELIEF. HX OF STROKE. TAKES PLAVIX. Nursing Sepsis Screen: No Definite Risk Source: patient Exam Limitations: no limitations History of Present Illness Date Seen by Provider: Apr 09, 2020 Time Seen by Provider: 23:59 Initial Comments This 54-year-old woman presents to the emergency room via EMS with complaints of central chest pain and epigastric pain after laying down for bed tonight. She denies any history of cardiac problems she had a clean heart catheter in 2010. She does smoke and drinks alcohol. She had 5 beers tonight. She has no fever, cough or shortness of breath. Pain was initially scored as a 10 but improved to a 2/10 on arrival. Aspirin was given by EMS. Allergies and Home Medications Allergies Coded Allergies: Sulfa (Sulfonamide Antibiotics) (Verified Allergy, Severe, TONGUE SWELLING, 07/26/18) erythromycin base (Unverified Allergy, Severe, TONGUE SWELLING, 07/26/18) Zcvxozd-Igv-Mju Reductase Inhibitor (Verified Allergy, Unknown, 04/10/20) morphine (Verified Allergy, Unknown, 10/08/19) Home Medications Amlodipine Besylate 5 Mg Tablet, Unknown Dose PO DAILY, (Reported) Atenolol 50 Mg Tablet, 50 MG PO DAILY, (Reported) Buspirone HCl 10 Mg Tablet, 10 MG PO HS, (Reported) Clopidogrel Bisulfate 75 Mg Tablet, Unknown Dose PO DAILY, (Reported) Levothyroxine Sodium 150 Mcg Tablet, 150 MCG PO DAILY, (Reported) Losartan Potassium 50 Mg Tablet, 50 MG PO BID, (Reported) Ondansetron 4 Mg Tab.rapdis, 4 MG SL Q4H PRN for NAUSEA/VOMITING Prescribed by: HAWA HONG on 04/10/20428 Pantoprazole Sodium 40 Mg Tablet.dr, 40 MG PO DAILY Prescribed by: HAWA HONG on 04/10/20428 Tramadol HCl 50 Mg Tablet, 50 MG PO Q6H PRN for BREAKTHROUGH PAIN Prescribed by: YULIANA KAY on 02/13/19 1247 Patient Home Medication List Home Medication List Reviewed: Yes Review of Systems Review of Systems Constitutional: no symptoms reported EENTM: No Symptoms Reported Respiratory: No Symptoms Reported Cardiovascular: See HPI Gastrointestinal: See HPI Genitourinary: No Symptoms Reported Musculoskeletal: no symptoms reported Skin: no symptoms reported Psychiatric/Neurological: No Symptoms Reported Endocrine: No Symptoms Reported Hematologic/Lymphatic: No Symptoms Reported Past Pdcqbin-Khtuoi-Owrbli Hx Past Med/Social Hx: Reviewed Nursing Past Med/Soc Hx Patient Social History Alcohol Use: Regular Use Number of Drinks Today: 5 Alcohol Beverage of Choice: Beer Recreational Drug Use: Yes Drug of Choice: MARIJUANA Smoking Status: Current Everyday Smoker Type Used: Cigarettes 2nd Hand Smoke Exposure: Yes Recent Foreign Travel: No Contact w/Someone Who Travel: No Recent Infectious Disease Expo: No Recent Hopitalizations: No Physical Abuse: No Sexual Abuse: No Immunizations Up To Date Tetanus Booster (TDap): Unknown Seasonal Allergies Seasonal Allergies: No Past Medical History Surgeries: Yes (abdominal aneurysm repair) Abdominal, Adenoidectomy, Appendectomy, Gallbladder, Hysterectomy, Thyroidectomy , Tonsillectomy, Vascular Surgery Respiratory: No Currently Using CPAP: No Currently Using BIPAP: No Cardiac: Yes (AAA REPAIR) Aneurysm, Hypertension, Syncope Neurological: Yes TIA Reproductive Disorders: No Sexually Transmitted Disease: No HIV/AIDS: No Genitourinary: No Gastrointestinal: Yes (BLEEDING) Gastroesophageal Reflux, Chronic Constipation, Chronic Diarrhea Musculoskeletal: Yes Arthritis Endocrine: Yes Hypothyroidsim HEENT: No Loss of Vision: Denies Hearing Impairment: Denies Cancer: Yes Thyroid Did You Recieve Any Treatments: Yes What Type of Treatment Did You: Radiation, Surgical Intervention Psychosocial: Yes (alcohol dependence, anxiety) Anxiety Integumentary: Yes Psoriasis Blood Disorders: No Adverse Reaction/Blood Tranf: No (HAS HAD BLOOD WITH NO REACTION) Family Medical History Cancer Physical Exam Vital Signs Vital Signs - First Documented 04/09/20 04/10/20 23:58 04:40 Temp 37.0 Pulse 74 Resp 16 B/P (MAP) 147/81 (103) Pulse Ox 98 O2 Delivery Room Air Capillary Refill : Less Than 3 Seconds Height, Weight, BMI Height: 5'3.00" Weight: 137lbs. 0.0oz. 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 as 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 Skin: Normal Color, Warm/Dry Progress/Results/Core Measures Results/Orders Lab Results Laboratory Tests Test 04/10/20 00:05 04/10/20 03:35 Range/Units White Blood Count 7.1 4.3-11.0 10^3/uL Red Blood Count 4.66 4.35-5.85 10^6/uL Hemoglobin 14.8 11.5-16.0 G/DL Hematocrit 42 35-52 % Mean Corpuscular Volume 90 80-99 FL Mean Corpuscular Hemoglobin 32 25-34 PG Mean Corpuscular Hemoglobin Concent 35 32-36 G/DL Red Cell Distribution Width 13.0 10.0-14.5 % Platelet Count 228 130-400 10^3/uL Mean Platelet Volume 8.8 7.4-10.4 FL Neutrophils (%) (Auto) 62 42-75 % Lymphocytes (%) (Auto) 29 12-44 % Monocytes (%) (Auto) 7 0-12 % Eosinophils (%) (Auto) 2 0-10 % Basophils (%) (Auto) 0 0-10 % Neutrophils # (Auto) 4.4 1.8-7.8 X 10^3 Lymphocytes # (Auto) 2.1 1.0-4.0 X 10^3 Monocytes # (Auto) 0.5 0.0-1.0 X 10^3 Eosinophils # (Auto) 0.2 0.0-0.3 10^3/uL Basophils # (Auto) 0.0 0.0-0.1 10^3/uL Prothrombin Time 12.2 12.2-14.7 SEC INR Comment 0.9 0.8-1.4 Activated Partial Thromboplast Time 27 24-35 SEC Sodium Level 137 135-145 MMOL/L Potassium Level 3.3 L 3.6-5.0 MMOL/L Chloride Level 101 98-107 MMOL/L Carbon Dioxide Level 20 L 21-32 MMOL/L Anion Gap 16 H 5-14 MMOL/L Blood Urea Nitrogen 11 7-18 MG/DL Creatinine 0.77 0.60-1.30 MG/DL Estimat Glomerular Filtration Rate > 60 BUN/Creatinine Ratio 14 Glucose Level 98 70-105 MG/DL Calcium Level 8.7 8.5-10.1 MG/DL Corrected Calcium 8.3 L 8.5-10.1 MG/DL Magnesium Level 2.0 1.6-2.4 MG/DL Total Bilirubin 0.6 0.1-1.0 MG/DL Aspartate Amino Transf (AST/SGOT) 136 H 5-34 U/L Alanine Aminotransferase (ALT/SGPT) 77 H 0-55 U/L Alkaline Phosphatase 148 H 40-136 U/L Myoglobin 27.8 10.0-92.0 NG/ML Troponin I < 0.028 < 0.028 <0.028 NG/ML C-Reactive Protein High Sensitivity 0.16 0.00-0.50 MG/DL Total Protein 7.1 6.4-8.2 GM/DL Albumin 4.5 3.2-4.5 GM/DL Lipase 25 8-78 U/L Thyroid Stimulating Hormone (TSH) 0.82 0.35-4.94 UIU/ML Free Thyroxine 1.29 0.70-1.48 NG/DL Serum Alcohol 88 H <10 MG/DL My Orders Orders - HAWA LU MD Cbc With Automated Diff (04/10/20 00:05) Magnesium (04/10/20 00:05) Chest 1 View, Ap/Pa Only (04/10/20 00:05) Ekg Tracing (04/10/20 00:05) Comprehensive Metabolic Panel (04/10/20 00:05) Myoglobin Serum (04/10/20 00:05) Protime With Inr (04/10/20 00:05) Partial Thromboplastin Time (04/10/20 00:05) O2 (04/10/20 00:05) Monitor-Rhythm Ecg Trace Only (04/10/20 00:05) Ed Iv/Invasive Line Start (04/10/20 00:05) Lipase (04/10/20 00:05) Famotidine Injection (Pepcid Injection) (04/10/20 00:15) Ondansetron Injection (Zofran Injectio (04/10/20 00:15) Lidocaine 2% Viscous 15 Ml (Xylocaine Vi (04/10/20 00:15) Antacid Suspension (Mylanta Suspension (04/10/20 00:15) Alcohol (04/10/20 00:05) Troponin I (04/10/20 00:05) Free T4 (Free Thyroxine) (04/10/20 00:05) Thyroid Stimulating Hormone (04/10/20 00:05) Hs C Reactive Protein (04/10/20 00:05) Troponin I (04/10/20 03:30) Ekg Tracing (04/10/20 01:19) Medications Given in ED Current Medications Medications Dose Ordered Sig/Brigid Route Start Time Stop Time Status Last Admin Dose Admin Al Hydrox/Mg Hydrox/Simethicone 30 ml ONCE ONCE PO 04/10/20 00:15 04/10/20 00:16 DC 04/10/20 00:16 30 ML Famotidine 20 mg ONCE ONCE IVP 04/10/20 00:15 04/10/20 00:16 DC 04/10/20 00:17 20 MG Lidocaine HCl 15 ml ONCE ONCE PO 04/10/20 00:15 04/10/20 00:16 DC 04/10/20 00:16 15 ML Ondansetron HCl 4 mg ONCE ONCE IVP 04/10/20 00:15 04/10/20 00:16 DC 04/10/20 00:17 4 MG Vital Signs/I&O 04/09/20 04/09/20 04/10/20 23:58 23:58 04:40 Temp 37.0 Pulse 74 68 Resp 16 16 B/P (MAP) 147/81 (103) 101/66 (103) Pulse Ox 98 O2 Delivery Room Air Room Air Room Air Blood Pressure Mean: 103 Progress Progress Note #1: Time: 01:37 Progress Note Pain had dissipated to 2 upon arrival. She was found to have tenderness in the epigastrium. GI cocktail was administered. It caused vomiting but relieved her pain. Pepcid and Zofran were additionally given. Initial cardiopulmonary workup was unremarkable. We will repeat troponin and EKG at 03:30 which would be approximately 4 hours after onset of pain. Patient is comfortable and resting in bed with no pain at this time. Progress Note #2: Progress Note Patient remained pain free after GI cocktail, Pepcid and Zofran. Repeat troponin and EKG were negative. Initial ECG Impression Date: Apr 10, 2020 Initial ECG Impression Time: 00:00 Initial ECG Rate: 71 Initial ECG Rhythm: Normal Sinus Initial ECG Intervals: Normal Comment Normal sinus rhythm with no ST elevation. Borderline ST depression and very similar in comparison to prior. No abnormal intervals or axis deviation. EKG : EKG Time: 03:34 Rate: 65 Rhythm: Normal Sinus Intervals: Normal ECG Impression: Normal Comment Normal sinus rhythm with no ST elevation or depression. No abnormal intervals or axis deviation. Diagnostic Imaging Diagonstic Imaging: Xray Plain Films/CT/US/NM/MRI: chest Comments Chest x-ray viewed by me and report not yet available. No acute abnormalities appreciated. Departure Impression Primary Impression: Atypical chest pain Additional Impression: Epigastric pain Disposition: HOME, SELF-CARE Condition: Improved Departure-Patient Inst. Decision time for Depature: 04:26 Referrals: [facility] (PCP/Family) Primary Care Physician Patient Instructions: Chest Pain, Severe Abdominal Pain Add. Discharge Instructions: Follow-up with your primary care provider as soon as possible. Take Protonix daily for the next month. Avoid the following: Eating large meals, eating close to bedtime, alcohol, tobacco, caffeine, carbonation, chocolate, citrus fruits and juices, tomato products, NSAID medications such as ibuprofen or naproxen, fatty or greasy lou ds, spicy foods, mints, or anything else you know irritates your stomach. Return to the emergency room if you have recurrent chest pain or develop new symptoms such as shortness of breath, fever, etc. All discharge instructions reviewed with patient and/or family. Voiced understanding. Scripts Ondansetron (Ondansetron Odt) 4 Mg Tab.rapdis 4 MG SL Q4H PRN for NAUSEA/VOMITING, #10 TAB Prov: HAWA LU MD 04/10/20 Pantoprazole Sodium (Protonix) 40 Mg Tablet.dr 40 MG PO DAILY, #30 TAB Prov: HAWA LU MD 04/10/20 Copy Copies To 1: BRODY PACE JOSHUA T MD Apr 10, 2020 01:40
[2020-04-10] MEDS ORDERED: ONDA4TAB11 SL (04:29)
[2020-04-10] MEDS ORDERED: PANT40TA2 PO (04:29)
[2020-04-10 04:40] VITALS: BP 101/66
--- NOTE | 2020-04-10 07:39 | Diagnostic Imaging Report ---
EXAMINATION: Chest radiograph, portable AP view. DATE: 04/10/2020 12:40 AM hours. INDICATION: 54-year-old female, chest pain. COMPARISON: August 31, 2017. FINDINGS: Heart size and mediastinal contours are unremarkable. There are linear opacities in the left midlung and left lower lobe likely relating to subsegmental atelectasis. There is no identified pneumothorax. There is no large pleural effusion. There is no otherwise noted focal airspace consolidation. There are right upper quadrant surgical clips. IMPRESSION: 1. Linear opacities in left midlung and left lower lobe which likely relate to subsegmental atelectasis. 2. No identified acute cardiopulmonary abnormality. Dictated by: Dictated on workstation # [id number]
== END 2020-04-10 04:41 | disposition home or self-care (01) ==
LOC: EDUNIT# 23:57 → ER 23:59
DX: R10.13 Epigastric pain (principal); R07.89 Other chest pain; I10 Essential (primary) hypertension; K21.9 Gastro-esophageal reflux disease without esophagitis; K59.09 Other constipation; E03.9 Hypothyroidism, unspecified; F41.9 Anxiety disorder, unspecified; F10.20 Alcohol dependence, uncomplicated; F17.210 Nicotine dependence, cigarettes, uncomplicated; Z88.2 Allergy status to sulfonamides; Z88.1 Allergy status to other antibiotic agents; Z88.5 Allergy status to narcotic agent; Z88.8 Allergy status to other drugs, medicaments and biological substances; Z79.02 Long term (current) use of antithrombotics/antiplatelets; Z79.890 Hormone replacement therapy; Z86.73 Personal history of transient ischemic attack (TIA), and cerebral infarction without residual deficits; Z85.850 Personal history of malignant neoplasm of thyroid; Y90.4 Blood alcohol level of 80-99 mg/100 ml
CPT/HCPCS: 71045; 80053; 83690; 83735; 83874; 84439; 84443; 84484; 85025; 85610; 85730; 86141; 93041; 99284; G0480; 36415; 80320

== ENCOUNTER 2020-12-28 09:53 | Emergency (ER) | payer OTHER ==
[~2020-12-28] VITALS: Ht 160 cm; Wt 79.5 kg
[~2020-12-28 09:53] MED LIST changes: -CLIN300C11 PO; +CLIN300C12 PO; +ONDA4TAB11 SL; +PANT40TA2 PO
--- NOTE | 2020-12-28 10:11 | ED Chest Pain ---
General Stated Complaint: PAIN IN SHOULDERS/GARCIA Source: patient Exam Limitations: no limitations History of Present Illness Date Seen by Provider: Dec 28, 2020 Time Seen by Provider: 09:55 Initial Comments Patient is a 55-year-old female who presents to the emergency department today with a chief complaint of substernal chest pain that radiates into bilateral shoulders. Patient states she had onset of discomfort at about 830 or 845 last night. She states she got sweaty and short of breath with the pain. She states she also had profuse vomiting. Patient states that she took some Xanax and went to bed. She took some Tylenol this morning and her pain has persisted. Patient also describes a headache. She states she is still nauseated. She still has the pain which she describes as "an ache" in both of her shoulders. Patient states that she had some chest pain in 2010 that resulted in a cardiac catheterization that was she states cleared by Dr. Hutson. Patient does have a history of hypertension and takes atenolol and Norvasc. She states she took her atenolol this morning. She has not had any aspirin. Benjamin montanez states she did take couple of Tylenol as well this morning. No recent illnesses such as fevers, chills cough or congestion. She is a smoker. She does have a family history of cardiovascular disease in both her grandmother as well as her parents. Patient reports that she has had 2 prior strokes and is followed by Dr. Juarez at [facility] in [place]. She is on Plavix on a daily basis. All other review of systems reviewed and negative except as stated above. Timing/Duration: 12 hours Severity/Quality: moderate, aching Location: substernal, shoulder Radiation: shoulders Activities at Onset: none ASA po TRUCK JUMPER: No NTG SL TRUCK JUMPER: No Associated Symptoms: nausea/vomiting Allergies and Home Medications Allergies Coded Allergies: Sulfa (Sulfonamide Antibiotics) (Verified Allergy, Severe, TONGUE SWELLING, 07/26/18) erythromycin base (Unverified Allergy, Severe, TONGUE SWELLING, 07/26/18) Jeqrvph-Mpe-Rjt Reductase Inhibitor (Verified Allergy, Unknown, 04/10/20) morphine (Verified Allergy, Unknown, 10/08/19) Home Medications Amlodipine Besylate 5 Mg Tablet, Unknown Dose PO DAILY, (Reported) Atenolol 50 Mg Tablet, 50 MG PO DAILY, (Reported) Buspirone HCl 10 Mg Tablet, 10 MG PO HS, (Reported) Clopidogrel Bisulfate 75 Mg Tablet, Unknown Dose PO DAILY, (Reported) Levothyroxine Sodium 150 Mcg Tablet, 150 MCG PO DAILY, (Reported) Losartan Potassium 50 Mg Tablet, 50 MG PO BID, (Reported) Ondansetron 4 Mg Tab.rapdis, 4 MG SL Q4H PRN for NAUSEA/VOMITING Prescribed by: HAWA HONG on 04/10/20428 Pantoprazole Sodium 40 Mg Tablet.dr, 40 MG PO DAILY Prescribed by: HAWA HONG on 04/10/20428 Tramadol HCl 50 Mg Tablet, 50 MG PO Q6H PRN for BREAKTHROUGH PAIN Prescribed by: YULIANA KAY on 02/13/19 1247 Patient Home Medication List Home Medication List Reviewed: Yes Review of Systems Review of Systems Constitutional: see HPI EENTM: No Symptoms Reported Respiratory: No Symptoms Reported Cardiovascular: Chest Pain Gastrointestinal: Diarrhea, Nausea, Vomiting Genitourinary: No Symptoms Reported Musculoskeletal: joint pain (bilateral shoulder pain) Psychiatric/Neurological: Anxiety All Other Systems Reviewed Negative Unless Noted: Yes Past Ruxmutb-Ifqjpa-Ujjmsr Hx Patient Social History Alcohol Beverage of Choice: Beer Drug of Choice: MARIJUANA Type Used: Cigarettes 2nd Hand Smoke Exposure: Yes Recent Hopitalizations: No Immunizations Up To Date Tetanus Booster (TDap): Unknown Seasonal Allergies Seasonal Allergies: No Past Medical History Surgeries: Yes (abdominal aneurysm repair) Abdominal, Adenoidectomy, Appendectomy, Gallbladder, Hysterectomy, Thyroidectomy, Tonsillectomy, Vascular Surgery Respiratory: No Currently Using CPAP: No Currently Using BIPAP: No Cardiac: Yes (AAA REPAIR) Aneurysm, Hypertension, Syncope Neurological: Yes TIA Reproductive Disorders: No Sexually Transmitted Disease: No HIV/AIDS: No Genitourinary: No Gastrointestinal: Yes (BLEEDING) Gastroesophageal Reflux, Chronic Constipation, Chronic Diarrhea Musculoskeletal: Yes Arthritis Endocrine: Yes Hypothyroidsim HEENT: No Loss of Vision: Denies Hearing Impairment: Denies Cancer: Yes Thyroid Did You Recieve Any Treatments: Yes What Type of Treatment Did You: Radiation, Surgical Intervention Psychosocial: Yes (alcohol dependence, anxiety) Anxiety Integumentary: Yes Psoriasis Blood Disorders: No Adverse Reaction/Blood Tranf: No (HAS HAD BLOOD WITH NO REACTION) Family Medical History Cancer Physical Exam Vital Signs Vital Signs - First Documented 12/28/20 09:56 Temp 36.6 Pulse 68 Resp 18 B/P (MAP) 183/94 (123) Pulse Ox 98 O2 Delivery Room Air Capillary Refill : Height, Weight, BMI Height: 5'3.00" Weight: 137lbs. 0.0oz. [id number]; 24.00 BMI Method:Stated General Appearance: WD/WN, Anxious HEENT: PERRL/EOMI Neck: Normal Inspection Respiratory: Lungs Clear, Normal Breath Sounds, No Accessory Muscle Use, No Respiratory Distress Cardiovascular: Regular Rate, Rhythm, Normal Peripheral Pulses (2+ radial pulses bilaterally) Gastrointestinal: Soft, Tenderness (mid abdominal tenderness without rebound or guarding) Extremity: Normal Inspection, Normal Range of Motion, Non Tender, No Calf Tenderness, No Pedal Edema Neurologic/Psychiatric: Alert, Oriented x3, No Motor/Sensory Deficits, Normal Mood/Affect Skin: Normal Color, Warm/Dry Progress/Results/Core Measures Results/Orders Lab Results Laboratory Tests Test 12/28/20 10:13 Range/Units White Blood Count 7.5 4.3-11.0 10^3/uL Red Blood Count 4.90 3.80-5.11 10^6/uL Hemoglobin 15.7 11.5-16.0 g/dL Hematocrit 46 35-52 % Mean Corpuscular Volume 94 80-99 fL Mean Corpuscular Hemoglobin 32 25-34 pg Mean Corpuscular Hemoglobin Concent 34 32-36 g/dL Red Cell Distribution Width 12.4 10.0-14.5 % Platelet Count 254 130-400 10^3/uL Mean Platelet Volume 9.2 9.0-12.2 fL Immature Granulocyte % (Auto) 0 % Neutrophils (%) (Auto) 66 42-75 % Lymphocytes (%) (Auto) 25 12-44 % Monocytes (%) (Auto) 6 0-12 % Eosinophils (%) (Auto) 1 0-10 % Basophils (%) (Auto) 1 0-10 % Neutrophils # (Auto) 5.0 1.8-7.8 10^3/uL Lymphocytes # (Auto) 1.9 1.0-4.0 10^3/uL Monocytes # (Auto) 0.5 0.0-1.0 10^3/uL Eosinophils # (Auto) 0.1 0.0-0.3 10^3/uL Basophils # (Auto) 0.1 0.0-0.1 10^3/uL Immature Granulocyte # (Auto) 0.0 0.0-0.1 10^3/uL Prothrombin Time 12.8 12.2-14.7 SEC INR Comment 0.9 0.8-1.4 Activated Partial Thromboplast Time 28 24-35 SEC Sodium Level 139 135-145 MMOL/L Potassium Level 3.7 3.6-5.0 MMOL/L Chloride Level 103 98-107 MMOL/L Carbon Dioxide Level 21 21-32 MMOL/L Anion Gap 15 H 5-14 MMOL/L Blood Urea Nitrogen 10 7-18 MG/DL Creatinine 0.65 0.60-1.30 MG/DL Estimat Glomerular Filtration Rate > 60 BUN/Creatinine Ratio 15 Glucose Level 100 70-105 MG/DL Calcium Level 9.2 8.5-10.1 MG/DL Corrected Calcium 8.5-10.1 MG/DL Magnesium Level 2.1 1.6-2.4 MG/DL Total Bilirubin 1.0 0.1-1.0 MG/DL Aspartate Amino Transf (AST/SGOT) 173 H 5-34 U/L Alanine Aminotransferase (ALT/SGPT) 205 H 0-55 U/L Alkaline Phosphatase 219 H 40-136 U/L Total Creatine Kinase 56 29-168 U/L Creatine Kinase MB 0.8 <6.6 NG/ML Troponin I < 0.028 <0.028 NG/ML Total Protein 7.5 6.4-8.2 GM/DL Albumin 4.7 H 3.2-4.5 GM/DL Lipase 12 8-78 U/L My Orders Orders - ORHAN UMANA MD Cbc With Automated Diff (12/28/20 10:11) Magnesium (12/28/20 10:11) Chest 1 View, Ap/Pa Only (12/28/20 10:11) Ekg Tracing (12/28/20 10:11) Comprehensive Metabolic Panel (12/28/20 10:11) Protime With Inr (12/28/20 10:11) Partial Thromboplastin Time (12/28/20 10:11) O2 (12/28/20 10:11) Monitor-Rhythm Ecg Trace Only (12/28/20 10:11) Lipid Panel (12/29/20 06:00) Ed Iv/Invasive Line Start (12/28/20 10:11) Creatine Kinase (12/28/20 10:11) Creatine Kinase Mb (12/28/20 10:11) Troponin I (12/28/20 10:11) Aspirin Chewable Tablet (Baby Aspirin Ch (12/28/20 10:15) Nitroglycerin 0.4 Mg Btl 25's (Nitrostat (12/28/20 10:15) Ondansetron Injection (Zofran Injectio (12/28/20 10:30) Acetaminophen Tablet (Tylenol Tablet) (12/28/20 10:45) Lipase (12/28/20 11:09) Medications Given in ED Current Medications Medications Dose Ordered Sig/Brigid Route Start Time Stop Time Status Last Admin Dose Admin Acetaminophen 1,000 mg ONCE ONCE PO 12/28/20 10:45 12/28/20 10:46 DC 12/28/20 10:50 1,000 MG Aspirin 324 mg ONCE ONCE PO 12/28/20 10:15 12/28/20 10:16 DC 12/28/20 10:17 324 MG Nitroglycerin 0.4 mg NEEDED PRN SL 12/28/20 10:15 12/28/20 10:18 0.4 MG Ondansetron HCl 4 mg ONCE ONCE IVP 12/28/20 10:30 12/28/20 10:31 DC 12/28/20 10:28 4 MG Vital Signs/I&O 12/28/20 12/28/20 09:56 10:40 Temp 36.6 Pulse 68 56 Resp 18 18 B/P (MAP) 183/94 (123) 105/80 (88) Pulse Ox 98 94 O2 Delivery Room Air Room Air Progress Progress Note : Time: 11:32 Progress Note Patient states after the nitro her shoulder pain improved. After the nausea medication she is no longer nauseated and she is feeling much better. Patient states that she did have 3 beers yesterday which might account for her increased LFTs. She has no elevation in serum troponin. Patient has had ongoing discomfort/symptoms since 830 last night I believe with 1 single set of cardiac enzymes she is cleared from any episode of acute coronary syndrome. Patient will be counseled on decreasing her alcohol use. Gut rest for the next 24 hours. Drink lots of clear liquids such as water over the next 24 hours. Ib uprofen as needed for pain. Return precautions given. Initial ECG Impression Date: Dec 28, 2020 Initial ECG Impression Time: 09:58 Initial ECG Rate: 64 Initial ECG Rhythm: Normal Sinus Initial ECG Intervals: Normal Initial ECG Impression: Nonspecific Changes Initial ECG Comparisson: Unchanged Diagnostic Imaging Diagonstic Imaging: Xray Plain Films/CT/US/NM/MRI: chest Comments [facility], [place] NAME: RICHARD NEGRON [facility] REC#: [id number] PT STATUS: REG ER : 1965 PHYSICIAN: ROHAN UMANA MD ADMIT DATE: 12/28/20/ER Draft Date of Exam:12/28/20 CHEST 1 VIEW, AP/PA ONLY INDICATION: Chest pain. Compared 04/10/2020 FINDINGS: There is some minimal linear subsegmental atelectasis on the left, improved from the prior. No infiltrate, effusion, pneumothorax or failure pattern. No features of pneumonia. IMPRESSION: Improved trace left perihilar subsegmental atelectasis, otherwise negative. Dictated on workstation # [id number] Dict: 12/28/20 1041 Trans: 12/28/20 1043 JOSHUA [id number] Interpreted by: DINA GIRALDO Electronically signed by: Departure Impression Primary Impression: Atypical chest pain Additional Impression: Abdominal pain Qualified Codes: R10.33 - Periumbilical pain Disposition: 01 HOME, SELF-CARE Condition: Stable Departure-Patient Inst. Decision time for Depature: 11:34 Referrals: [facility] (PCP) Primary Care Physician WALI MORROW (Family) Primary Care Physician Patient Instructions: Chest Pain That Is Not Caused by the Heart (DC), Abdominal Pain, Adult ED Add. Discharge Instructions: Drink plenty of clear liquids/water over the next 24 hours to stay well- hydrated. Take [id number]-ynmjuaf ibuprofen as needed for pain. Avoid Tylenol as your liver function studies are a little bit elevated today. This may be a result of the beer that you had yesterday. Come back to the emergency room for reevaluation in 24 to 48 hours if your symptoms are persisting, if you develop a fever, or you have any other emergent concerning complaints that develop. Scripts Ondansetron (Ondansetron Odt) 4 Mg Tab.rapdis 4 MG PO Q8H for nausea and vomiting, #20 TAB Prov: ROHAN UMANA MD 12/28/20 ROHAN UMANA MD Dec 28, 2020 10:11
[2020-12-28] MEDS ORDERED: NITROGLYCERIN 0.4 MG SL TABS BTL 25'S SL PRN (10:15)
[2020-12-28] MEDS ORDERED: ASPIRIN 81 MG CHEW (CHILDREN'S ASA) PO ONE (10:15)
[2020-12-28 10:29] LABS: BASOPHILS # (AUTO) 0.1 10^3/uL (0.0-0.1); BASOPHILS % (AUTO) 1 % (0-10); EOSINOPHILS # (AUTO) 0.1 10^3/uL (0.0-0.3); EOSINOPHILS % (AUTO) 1 % (0-10); HEMATOCRIT 46 % (35-52); HEMOGLOBIN 15.7 g/dL (11.5-16.0); LYMPHOCYTES # (AUTO) 1.9 10^3/uL (1.0-4.0); LYMPHOCYTES % (AUTO) 25 % (12-44); MEAN CORPUSCULAR HEMOGLOBIN 32 pg (25-34); MEAN CORPUSCULAR HGB CONC 34 g/dL (32-36); MEAN CORPUSCULAR VOLUME 94 fL (80-99); MEAN PLATELET VOLUME 9.2 fL (9.0-12.2); MONOCYTES # (AUTO) 0.5 10^3/uL (0.0-1.0); MONOCYTES % (AUTO) 6 % (0-12); NEUTROPHILS % (AUTO) 66 % (42-75); PLATELET COUNT 254 10^3/uL (130-400); WHITE BLOOD COUNT 7.5 10^3/uL (4.3-11.0)
[2020-12-28] MEDS ORDERED: ONDANSETRON 4 MG/2 ML (SDV) Z0FRAN IVP ONE (10:30)
[2020-12-28 10:43] LABS: INR 0.9 (0.8-1.4); PROTHROMBIN TIME PATIENT 12.8 SEC (12.2-14.7)
--- NOTE | 2020-12-28 10:44 | Diagnostic Imaging Report ---
INDICATION: Chest pain. Compared 04/10/2020 FINDINGS: There is some minimal linear subsegmental atelectasis on the left, improved from the prior. No infiltrate, effusion, pneumothorax or failure pattern. No features of pneumonia. IMPRESSION: Improved trace left perihilar subsegmental atelectasis, otherwise negative. Dictated by: Dictated on workstation # [id number]
[2020-12-28 10:45] LABS: ALBUMIN 4.7 GM/DL (3.2-4.5); CHLORIDE 103 MMOL/L (98-107); POTASSIUM 3.7 MMOL/L (3.6-5.0); SODIUM 139 MMOL/L (135-145)
[2020-12-28] MEDS ORDERED: ACETAMINOPHEN 500 MG TAB (TYLENOL) PO ONE (10:45)
[2020-12-28 10:47] LABS: CALCIUM 9.2 MG/DL (8.5-10.1)
[2020-12-28 10:48] LABS: GLUCOSE 100 MG/DL (70-105); TOTAL PROTEIN 7.5 GM/DL (6.4-8.2)
[2020-12-28 10:49] LABS: CARBON DIOXIDE 21 MMOL/L (21-32)
[2020-12-28 10:51] LABS: ALKALINE PHOSPHATASE 219 U/L (40-136); CREATININE SERUM 0.65 MG/DL (0.60-1.30); GFR ESTIMATED > 60
[2020-12-28 10:52] LABS: BUN/CREATININE RATIO 15
[2020-12-28 10:54] LABS: ALANINE AMINOTRANSFERASE 205 U/L (0-55); MAGNESIUM 2.1 MG/DL (1.6-2.4)
[2020-12-28 10:55] LABS: CREATINE KINASE 56 U/L (29-168)
[2020-12-28 11:00] LABS: CREATINE KINASE MB 0.8 NG/ML (<6.6)
[2020-12-28] MEDS ORDERED: ONDA4TAB11 PO (11:36)
[2020-12-28 11:39] VITALS: BP 136/73
== END 2020-12-28 11:39 | disposition home or self-care (01) ==
LOC: EDUNIT# 09:53 → ER 09:56
DX: R07.89 Other chest pain (principal); R10.9 Unspecified abdominal pain; I10 Essential (primary) hypertension; K21.9 Gastro-esophageal reflux disease without esophagitis; E03.9 Hypothyroidism, unspecified; F41.9 Anxiety disorder, unspecified; Z88.2 Allergy status to sulfonamides; Z88.1 Allergy status to other antibiotic agents; Z88.5 Allergy status to narcotic agent; Z88.8 Allergy status to other drugs, medicaments and biological substances; Z95.9 Presence of cardiac and vascular implant and graft, unspecified; Z77.22 Contact with and (suspected) exposure to environmental tobacco smoke (acute) (chronic); Z86.73 Personal history of transient ischemic attack (TIA), and cerebral infarction without residual deficits; Z79.890 Hormone replacement therapy
CPT/HCPCS: 36415; 71045; 80053; 82550; 82553; 83690; 83735; 84484; 85025; 85610; 85730; 93005; 93041

== ENCOUNTER → 2021-08-25 | Outpatient (CLI) | payer BC ==
[~2021-08-25] MED LIST changes: +CLIN-144 PO; -CLIN300C12 PO; +ONDA4TAB11 PO; -SULF1TAB35 PO; +SULF1TAB38 PO
--- NOTE | 2021-08-25 09:10 | Diagnostic Imaging Report ---
Clinical Indication: Patient having C-spine pain and burning pain down left arm. Exam: MRI of the cervical spine performed without IV contrast. Sequences include sagittal T1, sagittal T2, sagittal T2 fat-sat, and axial T2. Comparison: None. Findings: There is no acute cervical spine fracture or dislocation. There is a chronic mild compression deformity involving the upper and inferior endplate of the T1 vertebra. There is chronic Schmorl's node involving the upper aspect of the T2 vertebra. Limited visualization of the posterior fossa and cervical spinal cord is unremarkable. There is no abnormal cord signal. There is no significant paraspinal soft tissue abnormality. C1-C2: Unremarkable. C2-C3: Unremarkable. C3-C4: Unremarkable. C4-C5: There is a small anterior disk bulge. There is a small annular tear involving the posterior aspect of the disk but no significant posterior disk bulge. There is no significant central spinal canal or neural foramen narrowing. C5-C6: There is a diffuse disk bulge with bilateral uncinate spurs. There is moderate central canal stenosis, severe left neural foramen narrowing and moderate right neural foramen narrowing. There is moderate loss of disk space height. There is minimal ligamentum flavum buckling. C6-C7: There is a subtle posterior disk bulge with annular tear posteriorly. There is ligamentum flavum buckling. There is mild central canal stenosis. There is no significant right neural foramen narrowing and mild left neural foramen narrowing. C7-T1: Unremarkable. IMPRESSION: 1: There is a C5-C6 diffuse disk bulge and bilateral uncinate spurs. There is associated moderate central canal stenosis, severe left neural foramen narrowing and moderate right neural foramen narrowing. 2: There is a subtle posterior disk bulge at C6-C7 level with mild left neural foramen narrowing. 3: There is a small C4-C5 anterior disk bulge. There is a small annular tear involving the posterior aspect of the C4-C5 disk with no significant posterior disk bulge. Unremarkable MRI of the cervical spine. Dictated by: Dictated on workstation # [id number]
== END ==
LOC: RAD 08:00
PROVIDERS: ATTEND Physician Assistant
DX: M50.221 Other cervical disc displacement at C4-C5 level (principal); M48.02 Spinal stenosis, cervical region; M77.8 Other enthesopathies, not elsewhere classified; M50.321 Other cervical disc degeneration at C4-C5 level; G56.92 Unspecified mononeuropathy of left upper limb
CPT/HCPCS: 72141

== ENCOUNTER 2021-10-20 11:47 | Emergency (ER) | payer BC ==
[~2021-10-20] VITALS: Ht 160 cm; Wt 60.0 kg
[2021-10-20] MEDS ORDERED: KETOROLAC 30 MG/ML VIAL IVP ONE (12:15)
[2021-10-20] MEDS ORDERED: NS IV 1000 ML 1,000 ML IV SCH (12:15)
[2021-10-20 12:19] LABS: BASOPHILS # (AUTO) 0.1 10^3/uL (0.0-0.1); BASOPHILS % (AUTO) 1 % (0-10); EOSINOPHILS # (AUTO) 0.1 10^3/uL (0.0-0.3); EOSINOPHILS % (AUTO) 1 % (0-10); HEMATOCRIT 48 % (35-52); HEMOGLOBIN 16.3 g/dL (11.5-16.0); LYMPHOCYTES # (AUTO) 2.2 10^3/uL (1.0-4.0); LYMPHOCYTES % (AUTO) 29 % (12-44); MEAN CORPUSCULAR HEMOGLOBIN 32 pg (25-34); MEAN CORPUSCULAR HGB CONC 34 g/dL (32-36); MEAN CORPUSCULAR VOLUME 93 fL (80-99); MEAN PLATELET VOLUME 9.2 fL (9.0-12.2); MONOCYTES # (AUTO) 0.5 10^3/uL (0.0-1.0); MONOCYTES % (AUTO) 6 % (0-12); NEUTROPHILS # (AUTO) 4.9 10^3/uL (1.8-7.8); NEUTROPHILS % (AUTO) 63 % (42-75); PLATELET COUNT 230 10^3/uL (130-400); WHITE BLOOD COUNT 7.7 10^3/uL (4.3-11.0)
--- NOTE | 2021-10-20 12:20 | ED General ---
General Chief Complaint: General Problems/Pain Stated Complaint: CHEST PAIN/HIGH BP/VOMITING/DIARRHEA/HEADACHE Source of Information: Patient, Old Records Exam Limitations: No Limitations History of Present Illness Date Seen by Provider: Oct 20, 2021 Time Seen by Provider: 12:00 Initial Comments Patient is a 56-year-old female who presents to the emergency department today with a chief complaint of chest pain, headache, nausea, vomiting and diarrhea. Symptom onset on Sunday of this week, 4 days ago. She has had some generalized fatigue and malaise. She has been at work. She has been exposed to her boss who she believes is Covid positive. Patient is Covid vaccinated with Moderna in January and February 2021. She has not had a booster. She denies any fever but she has had chills. No black or bloody stools. No blood in her urine. No significant joint pain. She feels like her chest is "tight". She took her blood pressure this morning when she went home from work and noted that it was quite high at 160/110, she became concerned and decided to come to the emergency room. Patient has previously had left tachycardic catheterization by Dr. Hutson in 2010. This was clear. She does continue to smoke cigarettes. She has a history of high blood pressure. She takes thyroid medication as well. All other review of systems reviewed and negative except as stated Timing/Duration: 3-4 Days Severity: Moderate Associated Systoms: Chest Pain, Fever/Chills (Chills), Headaches, Malaise, Nausea/Vomiting, Weakness Allergies and Home Medications Allergies Coded Allergies: Sulfa (Sulfonamide Antibiotics) (Verified Allergy, Severe, TONGUE SWELLING, 07/26/18) erythromycin base (Unverified Allergy, Severe, TONGUE SWELLING, 07/26/18) Atzypvx-Zwc-Inx Reductase Inhibitor (Verified Allergy, Unknown, 04/10/20) morphine (Verified Allergy, Unknown, 10/08/19) Patient Home Medication List Home Medication List Reviewed: Yes Amlodipine Besylate (Norvasc) 5 Mg Tablet, Unknown Dose PO DAILY, (Reported) Entered as Reported by: NOAH LOPEZ on 01/21/20 1215 Atenolol (Atenolol) 50 Mg Tablet, 50 MG PO DAILY, (Reported) Entered as Reported by: BLANKA ARAUJO on 07/29/18 1143 Buspirone HCl (Buspirone HCl) 10 Mg Tablet, 10 MG PO HS, (Reported) Entered as Reported by: NAVDEEP GRAHAM on 07/26/18 1300 Clopidogrel Bisulfate (Plavix) 75 Mg Tablet, Unknown Dose PO DAILY, (Reported) Entered as Reported by: NOAH LOPEZ on 01/21/20 1215 Levothyroxine Sodium (Levothyroxine Sodium) 150 Mcg Tablet, 150 MCG PO DAILY, (Reported) Entered as Reported by: NAVDEEP GRAHAM on 07/26/18 1300 Losartan Potassium (Losartan Potassium) 50 Mg Tablet, 50 MG PO BID, (Reported) Entered as Reported by: NAVDEEP GRAHAM on 07/26/18 1300 Ondansetron (Ondansetron Odt) 4 Mg Tab.rapdis, 4 MG SL Q4H PRN for NAUSEA/VOMITING Prescribed by: HAWA HONG on 04/10/20 0429 Ondansetron (Ondansetron Odt) 4 Mg Tab.rapdis, 4 MG PO Q8H Prescribed by: ROHAN UMANA on 12/28/20 1136 Pantoprazole Sodium (Protonix) 40 Mg Tablet.dr, 40 MG PO DAILY Prescribed by: AHWA HONG on 04/10/20 0429 Tramadol HCl (Tramadol HCl) 50 Mg Tablet, 50 MG PO Q6H PRN for BREAKTHROUGH PAIN Prescribed by: YULIANA KAY on 02/13/19 1247 Review of Systems Review of Systems Constitutional: see HPI, chills EENTM: no symptoms reported Respiratory: no symptoms reported Cardiovascular: chest pain ('tight") Gastrointestinal: diarrhea, nausea, vomiting Genitourinary: no symptoms reported : No Musculoskeletal: no symptoms reported Skin: no symptoms reported Psychiatric/Neurological: Anxiety, Headache All Other Systems Reviewed Negative Unless Noted: Yes Past Rjyoxmk-Voapes-Zqxwtg Hx Immunizations Up To Date Tetanus Booster (TDap): Unknown Seasonal Allergies Seasonal Allergies: No Past Medical History Surgeries: Yes (abdominal aneurysm repair) Abdominal, Adenoidectomy, Appendectomy, Gallbladder, Hysterectomy, Thyroid ectomy, Tonsillectomy, Vascular Surgery Respiratory: No Currently Using CPAP: No Currently Using BIPAP: No Cardiac: Yes (AAA REPAIR) Aneurysm, Hypertension, Syncope Neurological: Yes Stroke, TIA Reproductive Disorders: No Sexually Transmitted Disease: No HIV/AIDS: No Genitourinary: No Gastrointestinal: Yes (BLEEDING) Gastroesophageal Reflux, Chronic Constipation, Chronic Diarrhea Musculoskeletal: Yes Arthritis Endocrine: Yes Hypothyroidsim HEENT: No Loss of Vision: Denies Hearing Impairment: Denies Cancer: Yes Thyroid Did You Recieve Any Treatments: Yes What Type of Treatment Did You: Radiation, Surgical Intervention Psychosocial: Yes (alcohol dependence, anxiety) Anxiety Integumentary: Yes Psoriasis Blood Disorders: No Adverse Reaction/Blood Tranf: No (HAS HAD BLOOD WITH NO REACTION) Family Medical History Cancer Physical Exam Vital Signs Vital Signs - First Documented 10/20/21 11:50 Temp 36.0 Pulse 63 Resp 18 B/P (MAP) 168/103 (124) Pulse Ox 98 Capillary Refill : Height, Weight, BMI Height: 5'3.00" Weight: 137lbs. 0.0oz. 62.200582eg; 31.00 BMI Method:Stated General Appearance: No Apparent Distress, WD/WN Eyes: Bilateral Eye Normal Inspection, Bilateral Eye PERRL, Bilateral Eye EOMI HEENT: PERRL/EOMI, Pharynx Normal, Moist Mucous Membranes Neck: Full Range of Motion, Normal Inspection Respiratory: Normal Breath Sounds, No Accessory Muscle Use, No Respiratory Distress, Crackles (occasional scattered crackles - room air sats 97%) Cardiovascular: Regular Rate, Rhythm, Normal Peripheral Pulses Gastrointestinal: Normal Bowel Sounds, Soft Extremity: Normal Capillary Refill, Normal Inspection, Normal Range of Motion, Non Tender, No Calf Tenderness, No Pedal Edema Neurologic/Psychiatric: Alert, Oriented x3, No Motor/Sensory Deficits, Normal Mood/Affect, jumpbasting canvas baster II-XII Norm as Tested Skin: Normal Color, Warm/Dry Progress/Results/Core Measures Suspected Sepsis SIRS Temperature: Pulse: Respiratory Rate: Laboratory Tests 10/20/21 12:00: White Blood Count 7.7 Blood Pressure / Mean: Laboratory Tests 10/20/21 12:00: Creatinine 0.69, Platelet Count 230, Total Bilirubin 0.8 Results/Orders Lab Results Laboratory Tests Test 10/20/21 12:00 10/20/21 12:10 Range/Units White Blood Count 7.7 4.3-11.0 10^3/uL Red Blood Count 5.14 H 3.80-5.11 10^6/uL Hemoglobin 16.3 H 11.5-16.0 g/dL Hematocrit 48 35-52 % Mean Corpuscular Volume 93 80-99 fL Mean Corpuscular Hemoglobin 32 25-34 pg Mean Corpuscular Hemoglobin Concent 34 32-36 g/dL Red Cell Distribution Width 12.9 10.0-14.5 % Platelet Count 230 130-400 10^3/uL Mean Platelet Volume 9.2 9.0-12.2 fL Immature Granulocyte % (Auto) 0 % Neutrophils (%) (Auto) 63 42-75 % Lymphocytes (%) (Auto) 29 12-44 % Monocytes (%) (Auto) 6 0-12 % Eosinophils (%) (Auto) 1 0-10 % Basophils (%) (Auto) 1 0-10 % Neutrophils # (Auto) 4.9 1.8-7.8 10^3/uL Lymphocytes # (Auto) 2.2 1.0-4.0 10^3/uL Monocytes # (Auto) 0.5 0.0-1.0 10^3/uL Eosinophils # (Auto) 0.1 0.0-0.3 10^3/uL Basophils # (Auto) 0.1 0.0-0.1 10^3/uL Immature Granulocyte # (Auto) 0.0 0.0-0.1 10^3/uL Sodium Level 137 135-145 MMOL/L Potassium Level 4.2 3.6-5.0 MMOL/L Chloride Level 106 98-107 MMOL/L Carbon Dioxide Level 17 L 21-32 MMOL/L Anion Gap 14 5-14 MMOL/L Blood Urea Nitrogen 14 7-18 MG/DL Creatinine 0.69 0.60-1.30 MG/DL Estimat Glomerular Filtration Rate 101 BUN/Creatinine Ratio 20 Glucose Level 110 H 70-105 MG/DL Calcium Level 9.2 8.5-10.1 MG/DL Corrected Calcium 8.5-10.1 MG/DL Total Bilirubin 0.8 0.1-1.0 MG/DL Aspartate Amino Transf (AST/SGOT) 20 5-34 U/L Alanine Aminotransferase (ALT/SGPT) 15 0-55 U/L Alkaline Phosphatase 120 40-136 U/L Total Creatine Kinase 90 29-168 U/L Troponin I < 0.028 <0.028 NG/ML C-Reactive Protein High Sensitivity 0.12 0.00-0.50 MG/DL Total Protein 7.6 6.4-8.2 GM/DL Albumin 4.7 H 3.2-4.5 GM/DL Lipase 13 8-78 U/L Influenza Type A (RT-PCR) Not Detected Not Detecte Influenza Type B (RT-PCR) Not Detected Not Detecte SARS-CoV-2 RNA (RT-PCR) Not Detected Not Detecte My Orders Orders - ROHAN UMANA MD Ed Iv/Invasive Line Start (10/20/21 12:10) Cbc With Automated Diff (10/20/21 12:10) Comprehensive Metabolic Panel (10/20/21 12:10) Lipase (10/20/21 12:10) Troponin I [place] (10/20/21 12:10) Creatine Kinase (10/20/21 12:10) Ekg Tracing (10/20/21 12:10) Chest 1 View, Ap/Pa Only (10/20/21 12:10) Hs C Reactive Protein (10/20/21 12:10) Covid 19 Inhouse Test (10/20/21 12:10) Influenza A And B By Pcr (10/20/21 12:10) Isolation Central Supply Req (10/20/21 12:10) Ketorolac Injection (Toradol Injection) (10/20/21 12:15) Ns Iv 1000 Ml (Sodium Chloride 0.9%) (10/20/21 12:15) Medications Given in ED Current Medications Medications Dose Ordered Sig/Brigid Route Start Time Stop Time Status Last Admin Dose Admin Ketorolac Tromethamine 15 mg ONCE ONCE IVP 10/20/21 12:15 10/20/21 12:16 DC 10/20/21 12:18 15 MG Vital Signs/I&O 10/20/21 11:50 Temp 36.0 Pulse 63 Resp 18 B/P (MAP) 168/103 (124) Pulse Ox 98 Capillary Refill : Progress Note : Time: 13:28 Progress Note Patient rechecked, headache is just a tiny bit better after the Toradol. She mentions that tramadol often helps her "migraines". I am going to add some Zofran. Her troponin is negative her electrolytes are normal as are her liver functions. CBC is normal. Covid test and flu test are negative. Chest x-ray is negative for pneumonia. Her blood pressure still little bit up so I think the tramadol in helping with her headache and generalized pain will help bring down her blood pressure. She has no acute clinical or objective findings to warrant further testing from the emergency department nor admission at this time. I have advised the patient that I will be sending her prescription home of some Zofran. I have advised her good return precautions. She verbalized understanding. All questions are sought and answered. ECG Initial ECG Impression Date: Oct 20, 2021 Initial ECG Impression Time: 12:13 Initial ECG Rate: 59 Initial ECG Rhythm: Normal Sinus Initial ECG Impression: Normal, Nonspecific Changes Initial ECG Comparisson: Unchanged Diagnostic Imaging Diagonstic Imaging: Xray Plain Films/CT/US/NM/MRI: chest Comments [facility], [place] NAME: [facility] REC#: [id number] PT STATUS: REG ER : 1965 PHYSICIAN: ROHAN UMANA MD ADMIT DATE: 10/20/21/ER Draft Date of Exam:10/20/21 CHEST 1 VIEW, AP/PA ONLY INDICATION: Shortness of breath, vomiting, and fatigue. COMPARISON: 12/28/2020. FINDINGS: Single view of the chest demonstrates focal scarring in the left base. No focal infiltrate is seen. The heart is normal. There is no pneumothorax or effusion. Osseous structures are normal. IMPRESSION: No acute cardiopulmonary findings. Dictated on workstation # [id number] Dict: 10/20/21 1237 Trans: 10/20/21 1240 [id number] Interpreted by: EVELYN RECINOS Electronically signed by: Departure Impression Primary Impression: Gastroenteritis Additional Impressions: Headache Qualified Codes: G44.209 - Tension-type headache, unspecified, not intractable Atypical chest pain Dehydration Disposition: 01 HOME, SELF-CARE Condition: Stable Departure-Patient Inst. Decision time for Depature: 13:29 Referrals: [facility] (PCP) Primary Care Physician WALI MORROW (Family) Primary Care Physician Patient Instructions: Viral Gastroenteritis Add. Discharge Instructions: Use the Zofran, 4 mg every 8 hours as needed for nausea. Drink plenty of fluids, electrolyte replacement to stay well-hydrated. Tramadol 1 every 8 hours as needed for pain/headache Follow-up with your primary care provider. Return to the emergency department for any new, concerning or emergent complaints. Scripts Tramadol HCl (Tramadol HCl) 50 Mg Tablet 50 MG PO Q8H PRN for pain/headache, #10 TAB 0 Refills Prov: ROHAN UMANA MD 10/20/21 Ondansetron (Ondansetron Odt) 4 Mg Tab.rapdis 4 MG PO Q8H PRN for nausea, #20 TAB Prov: ROHAN UMANA MD 10/20/21 ROHAN UMANA MD Oct 20, 2021 12:20
[2021-10-20 12:22] LABS: ALBUMIN 4.7 GM/DL (3.2-4.5)
[2021-10-20 12:23] LABS: CHLORIDE 106 MMOL/L (98-107); POTASSIUM 4.2 MMOL/L (3.6-5.0); SODIUM 137 MMOL/L (135-145)
[2021-10-20 12:24] LABS: CALCIUM 9.2 MG/DL (8.5-10.1)
[2021-10-20 12:25] LABS: GLUCOSE 110 MG/DL (70-105); TOTAL PROTEIN 7.6 GM/DL (6.4-8.2)
[2021-10-20 12:26] LABS: CARBON DIOXIDE 17 MMOL/L (21-32)
[2021-10-20 12:27] LABS: BILIRUBIN,TOTAL 0.8 MG/DL (0.1-1.0)
[2021-10-20 12:28] LABS: ALKALINE PHOSPHATASE 120 U/L (40-136)
[2021-10-20 12:29] LABS: CREATININE SERUM 0.69 MG/DL (0.60-1.30); GFR ESTIMATED 101
[2021-10-20 12:30] LABS: BUN/CREATININE RATIO 20
[2021-10-20 12:32] LABS: ALANINE AMINOTRANSFERASE 15 U/L (0-55); CREATINE KINASE 90 U/L (29-168); LIPASE 13 U/L (8-78)
--- NOTE | 2021-10-20 12:41 | Diagnostic Imaging Report ---
INDICATION: Shortness of breath, vomiting, and fatigue. COMPARISON: 12/28/2020. FINDINGS: Single view of the chest demonstrates focal scarring in the left base. No focal infiltrate is seen. The heart is normal. There is no pneumothorax or effusion. Osseous structures are normal. IMPRESSION: No acute cardiopulmonary findings. Dictated by: Dictated on workstation # [id number]
[2021-10-20] MEDS ORDERED: ONDANSETRON 4 MG/2 ML (SDV) Z0FRAN IVP ONE (13:30)
[2021-10-20] MEDS ORDERED: TRM50T PO (13:31)
[2021-10-20] MEDS ORDERED: ONDA4TAB11 PO (13:31)
[2021-10-20 14:17] VITALS: BP 154/90
== END 2021-10-20 14:17 | disposition home or self-care (01) ==
LOC: EDUNIT# 11:47 → ER 11:50
DX: K52.9 Noninfective gastroenteritis and colitis, unspecified (principal); G44.209 Tension-type headache, unspecified, not intractable; G43.909 Migraine, unspecified, not intractable, without status migrainosus; I10 Essential (primary) hypertension; E89.0 Postprocedural hypothyroidism; F41.9 Anxiety disorder, unspecified; L40.9 Psoriasis, unspecified; K21.9 Gastro-esophageal reflux disease without esophagitis; Z86.73 Personal history of transient ischemic attack (TIA), and cerebral infarction without residual deficits; Z85.850 Personal history of malignant neoplasm of thyroid; Z20.822 Contact with and (suspected) exposure to COVID-19; Z79.02 Long term (current) use of antithrombotics/antiplatelets; Z79.890 Hormone replacement therapy; Z79.899 Other long term (current) drug therapy
CPT/HCPCS: 36415; 71045; 80053; 82550; 83690; 84484; 85025; 86141; 87636; 93005

== ENCOUNTER → 2021-11-24 | Outpatient (CLI) | payer BC ==
--- NOTE | 2021-11-24 15:04 | Diagnostic Imaging Report ---
INDICATION: Cervical disc disorder at the C5-C6 level. Patient also complains of neck pain. TIME OF EXAM: 2:07 PM. EXAMINATION: AP, lateral and odontoid views were obtained. In addition, lateral flexion-extension views were obtained. Neutral lateral view does show some straightening of the normal cervical lordotic curvature. There is mild generalized degenerative disc disease, greatest at C5-C6 level with disc space narrowing and marginal spurring. There is minimal anterolisthesis of C4 on C5 during flexion. All other levels are unremarkable. Prevertebral tissues are normal. Odontoid is intact. There are no fractures. IMPRESSION: C5-C6 degenerative disc disease. There appears to be slight motion at C4-C5. No other abnormality is detected. Dictated by: Dictated on workstation # [id number]
== END ==
LOC: RAD 13:34
PROVIDERS: ATTEND Neurological Surgery
DX: M50.122 Cervical disc disorder at C5-C6 level with radiculopathy (principal)
CPT/HCPCS: 72050

== ENCOUNTER 2021-11-28 15:29 | Outpatient (RCR) | payer BC | END 2021-12-02 13:26 | disposition home or self-care (01) | PROVIDERS: ATTEND Neurological Surgery | DX: M50.122 Cervical disc disorder at C5-C6 level with radiculopathy (principal); I11.9 Hypertensive heart disease without heart failure ==

== ENCOUNTER → 2022-01-09 | Outpatient (CLI) | payer BC ==
--- NOTE | 2022-01-09 13:51 | Diagnostic Imaging Report ---
Indication: Cervical spine surgery. Time of Exam: 1:11 PM Correlation is made with preop cervical spine study from 11/24/2021. Since prior study, the patient has undergone ACDF with anterior plate and screws transfixing C5-C6 level. Hardware is intact without fracture or loosening. Prevertebral tissues are normal. There is intervertebral spacer at C5-C6. There is some C4-C5 degenerative disc disease with mild disc space narrowing. Impression: Postoperative changes C5-C6 ACDF. No complicating features are detected. Dictated by: Dictated on workstation # [id number]
== END ==
LOC: RAD 12:55
PROVIDERS: ATTEND Physician Assistant
DX: Z98.1 Arthrodesis status (principal)
CPT/HCPCS: 72040

== ENCOUNTER → 2022-02-17 | Outpatient (CLI) | payer BC ==
--- NOTE | 2022-02-17 08:23 | Diagnostic Imaging Report ---
CLINICAL INDICATION: Patient had surgery on December 27. Follow-up exam. EXAM: X-ray of the cervical spine, AP and lateral views. COMPARISON: X-ray of the cervical spine dated 01/09/2022. FINDINGS: Again seen C5-C6 anterior cervical disk fusion with hardware components in good stable position. There is no hardware complication such as osteolysis or hardware fracture. There is no prevertebral soft tissue swelling. IMPRESSION: Again seen C5-C6 anterior cervical disk fusion in good position with no complications. Dictated by: Dictated on workstation # [id number]
== END ==
LOC: RAD 07:29
PROVIDERS: ATTEND Neurological Surgery
DX: Z48.89 Encounter for other specified surgical aftercare (principal); M43.22 Fusion of spine, cervical region
CPT/HCPCS: 72040

== ENCOUNTER 2022-03-30 10:45 | Emergency (ER) | payer BC ==
[~2022-03-30] VITALS: Ht 160 cm; Wt 60.0 kg
--- NOTE | 2022-03-30 11:19 | ED Neurological Problem ---
General Stated Complaint: GARCIA,HIGH BP Source: patient Exam Limitations: no limitations History of Present Illness Date Seen by Provider: Mar 30, 2022 Time Seen by Provider: 11:14 Allergies and Home Medications Allergies Coded Allergies: Sulfa (Sulfonamide Antibiotics) (Verified Allergy, Severe, TONGUE SWELLING, 07/26/18) erythromycin base (Unverified Allergy, Severe, TONGUE SWELLING, 07/26/18) Hzlosrm-Agu-Bfi Reductase Inhibitor (Verified Allergy, Unknown, 04/10/20) morphine (Verified Allergy, Unknown, 10/08/19) Patient Home Medication List Home Medication List Reviewed: Yes Amlodipine Besylate (Norvasc) 5 Mg Tablet, Unknown Dose PO DAILY, (Reported) Entered as Reported by: NOAH LOPEZ on 01/21/20 1215 Atenolol (Atenolol) 50 Mg Tablet, 50 MG PO DAILY, (Reported) Entered as Reported by: BLANKA ARAUJO on 07/29/18 1143 Buspirone HCl (Buspirone HCl) 10 Mg Tablet, 10 MG PO HS, (Reported) Entered as Reported by: NAVDEEP GRAHAM on 07/26/18 1300 Clopidogrel Bisulfate (Plavix) 75 Mg Tablet, Unknown Dose PO DAILY, (Reported) Entered as Reported by: NOAH LOPEZ on 01/21/20 1215 Levothyroxine Sodium (Levothyroxine Sodium) 150 Mcg Tablet, 150 MCG PO DAILY, (Reported) Entered as Reported by: NAVDEEP GRAHAM on 07/26/18 1300 Losartan Potassium (Losartan Potassium) 50 Mg Tablet, 50 MG PO BID, (Reported) Entered as Reported by: NAVDEEP GRAHAM on 07/26/18 1300 Ondansetron (Ondansetron Odt) 4 Mg Tab.rapdis, 4 MG SL Q4H PRN for NAUSEA/VOMITING Prescribed by: HAWA HONG on 04/10/20 0429 Ondansetron (Ondansetron Odt) 4 Mg Tab.rapdis, 4 MG PO Q8H Prescribed by: ROHAN UMANA on 12/28/20 1136 Ondansetron (Ondansetron Odt) 4 Mg Tab.rapdis, 4 MG PO Q8H PRN for nausea Prescribed by: ROHAN UMANA on 10/20/21 1331 Pantoprazole Sodium (Protonix) 40 Mg Tablet.dr, 40 MG PO DAILY Prescribed by: HAWA HONG on 04/10/20 0429 Tramadol HCl (Tramadol HCl) 50 Mg Tablet, 50 MG PO Q6H PRN for BREAKTHROUGH PAIN Prescribed by: YULIANA KAY on 02/13/19 1247 Tramadol HCl (Tramadol HCl) 50 Mg Tablet, 50 MG PO Q8H PRN for pain/headache Prescribed by: ROHAN UMANA on 10/20/21 1332 Review of Systems Review of Systems Constitutional: see HPI Ears, Nose, Mouth, Throat: denies ear pain, denies ear discharge Respiratory: No cough, No dyspnea on exertion Cardiovascular: No chest pain Gastrointestinal: No abdominal pain; nausea Genitourinary: No decreased output, No discharge Psychiatric/Neurological: Headache Hematologic/Lymphatic: Denies Anemia Past Roiltyx-Zuddyz-Ndtgfb Hx Immunizations Up To Date Tetanus Booster (TDap): Unknown First/Initial COVID19 Vaccinat: JANUARY 2021 Second COVID19 Vaccination [place]: FEBRUARY 2021 Seasonal Allergies Seasonal Allergies: No Past Medical History Surgeries: Yes (abdominal aneurysm repair) Abdominal, Adenoidectomy, Appendectomy, Gallbladder, Hysterectomy, Thyroidectomy, Tonsillectomy, Vascular Surgery Respiratory: No Currently Using CPAP: No Currently Using BIPAP: No Cardiac: Yes (AAA REPAIR) Aneurysm, Hypertension, Syncope Neurological: Yes Stroke, TIA Reproductive Disorders: No Sexually Transmitted Disease: No HIV/AIDS: No Genitourinary: No Gastrointestinal: Yes (BLEEDING) Gastroesophageal Reflux, Chronic Constipation, Chronic Diarrhea Musculoskeletal: Yes Arthritis Endocrine: Yes Hypothyroidsim HEENT: No Loss of Vision: Denies Hearing Impairment: Denies Cancer: Yes Thyroid Did You Recieve Any Treatments: Yes What Type of Treatment Did You: Radiation, Surgical Intervention Psychosocial: Yes (alcohol dependence, anxiety) Anxiety Integumentary: Yes Psoriasis Blood Disorders: No Adverse Reaction/Blood Tranf: No (HAS HAD BLOOD WITH NO REACTION) Family Medical History Cancer Physical Exam Vital Signs Vital Signs - First Documented 03/30/22 10:47 Temp 36.0 Pulse 51 Resp 17 B/P (MAP) 144/92 (109) O2 Delivery Room Air Capillary Refill : Height, Weight, BMI Height: 5'3.00" Weight: 137lbs. 0.0oz. 62.816143ss; 23.00 BMI Method:Stated General Appearance: WD/WN, no apparent distress HEENT: PERRL/EOMI, normal ENT inspection, TMs normal, pharynx normal Neck: non-tender, full range of motion, supple Respiratory: chest non-tender, lungs clear, normal breath sounds, no respirator y distress, no accessory muscle use Cardiovascular: regular rate, rhythm, no edema, no gallop, no JVD Gastrointestinal: normal bowel sounds, non tender, soft, no organomegaly Back: normal inspection, no CVA tenderness, no vertebral tenderness Extremities: normal range of motion, non-tender, normal inspection, no pedal edema, no calf tenderness Neurologic/Psychiatric: service center manager II-XII nml as tested, no motor/sensory deficits, alert, normal mood/affect, oriented x 3 Crainal Nerves: normal hearing, normal speech, PERRL Coordination/Gait: normal gait, other (ataxia upper limbs) Motor/Sensory: no motor deficit, no sensory deficit Skin: normal color, warm/dry Progress/Results/Core Measures Results/Orders Lab Results Laboratory Tests Test 03/30/22 11:14 03/30/22 11:19 03/30/22 11:20 Range/Units White Blood Count 7.0 4.3-11.0 10^3/uL Red Blood Count 5.11 3.80-5.11 10^6/uL Hemoglobin 16.0 11.5-16.0 g/dL Hematocrit 46 35-52 % Mean Corpuscular Volume 91 80-99 fL Mean Corpuscular Hemoglobin 31 25-34 pg Mean Corpuscular Hemoglobin Concent 35 32-36 g/dL Red Cell Distribution Width 12.8 10.0-14.5 % Platelet Count 218 130-400 10^3/uL Mean Platelet Volume 9.1 9.0-12.2 fL Immature Granulocyte % (Auto) 0 % Neutrophils (%) (Auto) 59 42-75 % Lymphocytes (%) (Auto) 32 12-44 % Monocytes (%) (Auto) 6 0-12 % Eosinophils (%) (Auto) 2 0-10 % Basophils (%) (Auto) 1 0-10 % Neutrophils # (Auto) 4.1 1.8-7.8 10^3/uL Lymphocytes # (Auto) 2.2 1.0-4.0 10^3/uL Monocytes # (Auto) 0.4 0.0-1.0 10^3/uL Eosinophils # (Auto) 0.1 0.0-0.3 10^3/uL Basophils # (Auto) 0.1 0.0-0.1 10^3/uL Immature Granulocyte # (Auto) 0.0 0.0-0.1 10^3/uL Prothrombin Time 12.1 L 12.2-14.7 SEC INR Comment 0.9 0.8-1.4 Activated Partial Thromboplast Time 30 24-35 SEC Sodium Level 139 135-145 MMOL/L Potassium Level 4.1 3.6-5.0 MMOL/L Chloride Level 105 98-107 MMOL/L Carbon Dioxide Level 20 L 21-32 MMOL/L Anion Gap 14 5-14 MMOL/L Blood Urea Nitrogen 14 7-18 MG/DL Creatinine 0.70 0.60-1.30 MG/DL Estimat Glomerular Filtration Rate 101 BUN/Creatinine Ratio 20 Glucose Level 110 H 70-105 MG/DL Calcium Level 9.7 8.5-10.1 MG/DL Corrected Calcium 8.5-10.1 MG/DL Total Bilirubin 0.7 0.1-1.0 MG/DL Aspartate Amino Transf (AST/SGOT) 19 5-34 U/L Alanine Aminotransferase (ALT/SGPT) 17 0-55 U/L Alkaline Phosphatase 125 40-136 U/L Troponin I < 0.028 <0.028 NG/ML Total Protein 7.5 6.4-8.2 GM/DL Albumin 4.7 H 3.2-4.5 GM/DL Glucometer 133 H 70-110 MG/DL Urine Color YELLOW Urine Clarity CLEAR Urine pH 6.0 5-9 Urine Specific [place] 1.025 H 1.016-1.022 Urine Protein NEGATIVE NEGATIVE Urine Glucose (UA) NEGATIVE NEGATIVE Urine Ketones NEGATIVE NEGATIVE Urine Nitrite NEGATIVE NEGATIVE Urine Bilirubin NEGATIVE NEGATIVE Urine Urobilinogen 0.2 < = 1.0 MG/DL Urine Leukocyte Esterase NEGATIVE NEGATIVE Urine RBC (Auto) NEGATIVE NEGATIVE Urine RBC NONE /HPF Urine WBC RARE /HPF Urine Squamous Epithelial Cells 0-2 /HPF Urine Crystals NONE /LPF Urine Bacteria TRACE /HPF Urine Casts NONE /LPF Urine Mucus SMALL H /LPF Urine Culture Indicated NO My Orders Orders - KENIA SOLANO Cbc With Automated Diff (03/30/22 11:11) Protime With Inr (03/30/22 11:11) Partial Thromboplastin Time (03/30/22 11:11) Comprehensive Metabolic Panel (03/30/22 11:11) Troponin I [place] (03/30/22 11:11) Ua Culture If Indicated (03/30/22 11:11) Chest 1 View, Ap/Pa Only (03/30/22 11:11) Ekg Tracing (03/30/22 11:11) Accucheck Stat ONCE (03/30/22 11:11) Ed Iv/Invasive Line Start (03/30/22 11:11) Vital Signs Stroke Patient Q15M (03/30/22 11:11) Ct Head Wo-R/O Stroke (03/30/22 11:11) Monitor-Rhythm Ecg Trace Only (03/30/22 11:11) Dysphagia Screening Tool [id number] (03/30/22 11:11) Prochlorperazine Injection (Compazine In (03/30/22 11:30) Diphenhydramine Injection (Benadryl Inje (03/30/22 11:30) Ns Iv 1000 Ml (Sodium Chloride 0.9%) (03/30/22 11:21) Fentanyl Inj (Sublimaze Injection) (03/30/22 11:21) Ct Angio Head/Neck (03/30/22 11:50) Iohexol Injection (Omnipaque 350 Mg/Ml 1 (03/30/22 12:00) Ns (Ivpb) (Sodium Chloride 0.9% Ivpb Bag (03/30/22 12:00) Ketorolac Injection (Toradol Injection) (03/30/22 12:30) Medications Given in ED Current Medications Medications Dose Ordered Sig/Brigid Route Start Time Stop Time Status Last Admin Dose Admin Diphenhydramine HCl 25 mg ONCE ONCE IVP 03/30/22 11:30 03/30/22 11:31 DC 03/30/22 11:38 25 MG Iohexol 100 ml ONCE ONCE IV 03/30/22 12:00 03/30/22 12:01 DC 03/30/22 12:20 59 ML Ketorolac Tromethamine 30 mg ONCE ONCE IVP 03/30/22 12:30 03/30/22 12:31 DC 03/30/22 12:32 30 MG Prochlorperazine Edisylate 10 mg ONCE ONCE IV 03/30/22 11:30 03/30/22 11:31 DC 03/30/22 11:38 10 MG Sodium Chloride 100 ml ONCE ONCE IV 03/30/22 12:00 03/30/22 12:01 DC 03/30/22 12:20 76 ML Vital Signs/I&O 03/30/22 10:47 Temp 36.0 Pulse 51 Resp 17 B/P (MAP) 144/92 (109) O2 Delivery Room Air Departure Impression Primary Impression: Headache Disposition: 01 HOME, SELF-CARE Condition: Stable Departure-Patient Inst. Decision time for Depature: 12:50 Referrals: [facility] (PCP) Primary Care Physician WALI MORROW (Family) Primary Care Physician Patient Instructions: Headache, Adult ED KENIA SOLANO Mar 30, 2022 11:18
--- NOTE | 2022-03-30 11:20 | ED Neurological Problem ---
General Stated Complaint: GARCIA,HIGH BP Source: patient Exam Limitations: no limitations History of Present Illness Date Seen by Provider: Mar 30, 2022 Time Seen by Provider: 11:14 Initial Comments Patient is a 56-year-old female who presents the ED with a history of CVA, TIA, hypertension, migraines who presents ED with left-sided throbbing head pain. She reports pain to the tip of the left ear. Symptoms started yesterday morning around 630. Rates head pain 10 out of 10. History of similar type pain with her migraines. Has been on Depakote in the past but currently on tramadol for her headaches. Does follow-up with neurologist. She states she has some drooping of the left eye. No slurred speech. She reports throbbing pulsating visual changes. Weakness/numbness in the left arm that started around the same time. Dizziness with nausea without any vomiting. Denies worst headache of her life. States her blood pressure was 158/118 at home. She does take Norvasc. She reports feeling confused. She states she put her underwear on backwards this morning. Patient denies of any chest pain, cough, shortness of breath, Adriano pain vomiting, diarrhea, fever. She did have cervical neck surgery in December. She does take an aspirin daily. Denies any traumas or falls. Patient reports history of smoking and alcohol use Allergies and Home Medications Allergies Coded Allergies: Sulfa (Sulfonamide Antibiotics) (Verified Allergy, Severe, TONGUE SWELLING, 07/26/18) erythromycin base (Unverified Allergy, Severe, TONGUE SWELLING, 07/26/18) Irwlupu-Mtf-Nrh Reductase Inhibitor (Verified Allergy, Unknown, 04/10/20) morphine (Verified Allergy, Unknown, 10/08/19) Patient Home Medication List Home Medication List Reviewed: Yes Amlodipine Besylate (Norvasc) 5 Mg Tablet, Unknown Dose PO DAILY, (Reported) Entered as Reported by: NOAH LOPEZ on 01/21/20 1215 Atenolol (Atenolol) 50 Mg Tablet, 50 MG PO DAILY, (Reported) Entered as Reported by: BLANKA ARAUJO on 07/29/18 1143 Buspirone HCl (Buspirone HCl) 10 Mg Tablet, 10 MG PO HS, (Reported) Entered as Reported by: NAVDEEP GRAHAM on 07/26/18 1300 Clopidogrel Bisulfate (Plavix) 75 Mg Tablet, Unknown Dose PO DAILY, (Reported) Entered as Reported by: NOAH LOPEZ on 01/21/20 1215 Levothyroxine Sodium (Levothyroxine Sodium) 150 Mcg Tablet, 150 MCG PO DAILY, (Reported) Entered as Reported by: NAVDEEP GRAHAM on 07/26/18 1300 Losartan Potassium (Losartan Potassium) 50 Mg Tablet, 50 MG PO BID, (Reported) Entered as Reported by: NAVDEEP GRAHAM on 07/26/18 1300 Ondansetron (Ondansetron Odt) 4 Mg Tab.rapdis, 4 MG SL Q4H PRN for NAUSEA/VOMITING Prescribed by: HAWA HONG on 04/10/20 0429 Ondansetron (Ondansetron Odt) 4 Mg Tab.rapdis, 4 MG PO Q8H Prescribed by: ROHAN UMANA on 12/28/20 1136 Ondansetron (Ondansetron Odt) 4 Mg Tab.rapdis, 4 MG PO Q8H PRN for nausea Prescribed by: ROHAN UMANA on 10/20/21 1331 Pantoprazole Sodium (Protonix) 40 Mg Tablet.dr, 40 MG PO DAILY Prescribed by: HAWA HONG on 04/10/20 0429 Tramadol HCl (Tramadol HCl) 50 Mg Tablet, 50 MG PO Q6H PRN for BREAKTHROUGH PAIN Prescribed by: YULIANA KAY on 02/13/19 1247 Tramadol HCl (Tramadol HCl) 50 Mg Tablet, 50 MG PO Q8H PRN for pain/headache Prescribed by: ROHAN UMANA on 10/20/21 1332 Review of Systems Review of Systems Constitutional: No chills, No diaphoresis, No malaise Eyes: Denies Blurred Vision, Denies Drainage, Denies Decreased Acuity, Denies Inflammation, Denies Pain, Denies Photophobia, Denies Previous Injury Ears, Nose, Mouth, Throat: denies ear pain, denies ear discharge Respiratory: No cough, No dyspnea on exertion Cardiovascular: No chest pain Gastrointestinal: No abdominal pain, No diarrhea; nausea; No vomiting Genitourinary: No decreased output, No discharge Musculoskeletal: No back pain, No joint pain Skin: No change in color, No change in hair/nails Psychiatric/Neurological: Denies Anxiety, Denies Depressed All Other Systems Reviewed Negative Unless Noted: Yes Past Gxprwri-Nhvzwa-Kwwkkf Hx Immunizations Up To Date Tetanus Booster (TDap): Unknown First/Initial COVID19 Vaccinat: JANUARY 2021 Second COVID19 Vaccination Cody: FEBRUARY 2021 Seasonal Allergies Seasonal Allergies: No Past Medical History Surgeries: Yes (abdominal aneurysm repair) Abdominal, Adenoidectomy, Appendectomy, Gallbladder, Hysterectomy, Thyroidectomy, Tonsillectomy, Vascular Surgery Respiratory: No Currently Using CPAP: No Currently Using BIPAP: No Cardiac: Yes (AAA REPAIR) Aneurysm, Hypertension, Syncope Neurological: Yes Stroke, TIA Reproductive Disorders: No Sexually Transmitted Disease: No HIV/AIDS: No Genitourinary: No Gastrointestinal: Yes (BLEEDING) Gastroesophageal Reflux, Chronic Constipation, Chronic Diarrhea Musculoskeletal: Yes Arthritis Endocrine: Yes Hypothyroidsim HEENT: No Loss of Vision: Denies Hearing Impairment: Denies Cancer: Yes Thyroid Did You Recieve Any Treatments: Yes What Type of Treatment Did You: Radiation, Surgical Intervention Psychosocial: Yes (alcohol dependence, anxiety) Anxiety Integumentary: Yes Psoriasis Blood Disorders: No Adverse Reaction/Blood Tranf: No (HAS HAD BLOOD WITH NO REACTION) Family Medical History Cancer Physical Exam Vital Signs Vital Signs - First Documented 03/30/22 10:47 Temp 36.0 Pulse 51 Resp 17 B/P (MAP) 144/92 (109) O2 Delivery Room Air Capillary Refill : Height, Weight, BMI Height: 5'3.00" Weight: 137lbs. 0.0oz. [id number]; 23.00 BMI Method:Stated General Appearance: WD/WN, no apparent distress HEENT: PERRL/EOMI, normal ENT inspection, TMs normal, pharynx normal Neck: non-tender, full range of motion, supple, normal inspection Respiratory: chest non-tender, lungs clear, normal breath sounds, no respiratory distress, no accessory muscle use Cardiovascular: regular rate, rhythm, no edema, no gallop, no JVD Gastrointestinal: normal bowel sounds, non tender, soft, no organomegaly Back: normal inspection, no CVA tenderness, no vertebral tenderness Extremities: normal range of motion, non-tender, normal inspection, no pedal edema Neurologic/Psychiatric: filenet architect II-XII nml as tested, no motor/sensory deficits, alert, normal mood/affect, oriented x 3 Crainal Nerves: normal hearing, normal speech, PERRL, other (Slight droop of left upper eyelid) Coordination/Gait: normal gait Motor/Sensory: no motor deficit, no sensory deficit, no pronator drift Skin: normal color, warm/dry Stroke Onset of Symptoms Date of Onset of Symptoms: Mar 29, 2022 Time of Symptom Onset: 06:30 Onset of Symptoms: Yes NIH Stroke Scale Assessment Select: Initial Level of Consciousness: 0=Alert (0), Level of Consciousness- Questions: 0=Answers both month/age (0), LOC Commands: 0=Performs both tasks (0), Gaze: Normal (0), Visual Farah: 0=No visual loss (0), Facial Movement (Facial Paresis): 1=Minor paralysis (1), Motor Function-Arms Right: 0=No drift (0), Motor Function-Arms Left: 0=No drift (0), Motor Function-Legs Right: 0=No drift (0), Motor Function-Legs Left: 0=No drift (0), Limb Ataxia: 2=Present in two limbs (2), Sensory: 0=Normal:no loss (0), Best Language: 0=No aphasia (0), Dysarthria: 0=Normal (0), Extinction & Inattention: 0=No abnormality (0), Total: 3 Progress/Results/Core Measures Results/Orders Lab Results Laboratory Tests Test 03/30/22 11:14 03/30/22 11:19 03/30/22 11:20 Range/Units White Blood Count 7.0 4.3-11.0 10^3/uL Red Blood Count 5.11 3.80-5.11 10^6/uL Hemoglobin 16.0 11.5-16.0 g/dL Hematocrit 46 35-52 % Mean Corpuscular Volume 91 80-99 fL Mean Corpuscular Hemoglobin 31 25-34 pg Mean Corpuscular Hemoglobin Concent 35 32-36 g/dL Red Cell Distribution Width 12.8 10.0-14.5 % Platelet Count 218 130-400 10^3/uL Mean Platelet Volume 9.1 9.0-12.2 fL Immature Granulocyte % (Auto) 0 % Neutrophils (%) (Auto) 59 42-75 % Lymphocytes (%) (Auto) 32 12-44 % Monocytes (%) (Auto) 6 0-12 % Eosinophils (%) (Auto) 2 0-10 % Basophils (%) (Auto) 1 0-10 % Neutrophils # (Auto) 4.1 1.8-7.8 10^3/uL Lymphocytes # (Auto) 2.2 1.0-4.0 10^3/uL Monocytes # (Auto) 0.4 0.0-1.0 10^3/uL Eosinophils # (Auto) 0.1 0.0-0.3 10^3/uL Basophils # (Auto) 0.1 0.0-0.1 10^3/uL Immature Granulocyte # (Auto) 0.0 0.0-0.1 10^3/uL Prothrombin Time 12.1 L 12.2-14.7 SEC INR Comment 0.9 0.8-1.4 Activated Partial Thromboplast Time 30 24-35 SEC Sodium Level 139 135-145 MMOL/L Potassium Level 4.1 3.6-5.0 MMOL/L Chloride Level 105 98-107 MMOL/L Carbon Dioxide Level 20 L 21-32 MMOL/L Anion Gap 14 5-14 MMOL/L Blood Urea Nitrogen 14 7-18 MG/DL Creatinine 0.70 0.60-1.30 MG/DL Estimat Glomerular Filtration Rate 101 BUN/Creatinine Ratio 20 Glucose Level 110 H 70-105 MG/DL Calcium Level 9.7 8.5-10.1 MG/DL Corrected Calcium 8.5-10.1 MG/DL Total Bilirubin 0.7 0.1-1.0 MG/DL Aspartate Amino Transf (AST/SGOT) 19 5-34 U/L Alanine Aminotransferase (ALT/SGPT) 17 0-55 U/L Alkaline Phosphatase 125 40-136 U/L Troponin I < 0.028 <0.028 NG/ML Total Protein 7.5 6.4-8.2 GM/DL Albumin 4.7 H 3.2-4.5 GM/DL Glucometer 133 H 70-110 MG/DL Urine Color YELLOW Urine Clarity CLEAR Urine pH 6.0 5-9 Urine Specific [place] 1.025 H 1.016-1.022 Urine Protein NEGATIVE NEGATIVE Urine Glucose (UA) NEGATIVE NEGATIVE Urine Ketones NEGATIVE NEGATIVE Urine Nitrite NEGATIVE NEGATIVE Urine Bilirubin NEGATIVE NEGATIVE Urine Urobilinogen 0.2 < = 1.0 MG/DL Urine Leukocyte Esterase NEGATIVE NEGATIVE Urine RBC (Auto) NEGATIVE NEGATIVE Urine RBC NONE /HPF Urine WBC RARE /HPF Urine Squamous Epithelial Cells 0-2 /HPF Urine Crystals NONE /LPF Urine Bacteria TRACE /HPF Urine Casts NONE /LPF Urine Mucus SMALL H /LPF Urine Culture Indicated NO My Orders Orders - KENIA SOLANO PA Cbc With Automated Diff (03/30/22 11:11) Protime With Inr (03/30/22 11:11) Partial Thromboplastin Time (03/30/22 11:11) Comprehensive Metabolic Panel (03/30/22 11:11) Troponin I [place] (03/30/22 11:11) Ua Culture If Indicated (03/30/22 11:11) Chest 1 View, Ap/Pa Only (03/30/22 11:11) Ekg Tracing (03/30/22 11:11) Accucheck Stat ONCE (03/30/22 11:11) Ed Iv/Invasive Line Start (03/30/22 11:11) Vital Signs Stroke Patient Q15M (03/30/22 11:11) Ct Head Wo-R/O Stroke (03/30/22 11:11) Monitor-Rhythm Ecg Trace Only (03/30/22 11:11) Dysphagia Screening Tool [id number] (03/30/22 11:11) Prochlorperazine Injection (Compazine In (03/30/22 11:30) Diphenhydramine Injection (Benadryl Inje (03/30/22 11:30) Ns Iv 1000 Ml (Sodium Chloride 0.9%) (03/30/22 11:21) Fentanyl Inj (Sublimaze Injection) (03/30/22 11:21) Ct Angio Head/Neck (03/30/22 11:50) Iohexol Injection (Omnipaque 350 Mg/Ml 1 (03/30/22 12:00) Ns (Ivpb) (Sodium Chloride 0.9% Ivpb Bag (03/30/22 12:00) Ketorolac Injection (Toradol Injection) (03/30/22 12:30) Medications Given in ED Current Medications Medications Dose Ordered Sig/Brigid Route Start Time Stop Time Status Last Admin Dose Admin Diphenhydramine HCl 25 mg ONCE ONCE IVP 03/30/22 11:30 03/30/22 11:31 DC 03/30/22 11:38 25 MG Iohexol 100 ml ONCE ONCE IV 03/30/22 12:00 03/30/22 12:01 DC 03/30/22 12:20 59 ML Ketorolac Tromethamine 30 mg ONCE ONCE IVP 03/30/22 12:30 03/30/22 12:31 DC 03/30/22 12:32 30 MG Prochlorperazine Edisylate 10 mg ONCE ONCE IV 03/30/22 11:30 03/30/22 11:31 DC 03/30/22 11:38 10 MG Sodium Chloride 100 ml ONCE ONCE IV 03/30/22 12:00 03/30/22 12:01 DC 03/30/22 12:20 76 ML Vital Signs/I&O 03/30/22 10:47 Temp 36.0 Pulse 51 Resp 17 B/P (MAP) 144/92 (109) O2 Delivery Room Air Departure Communication (PCP) Patient with neurological deficits started 630 yesterday. Patient is not a tPA candidate. Left-sided headache with numbness/weakness to the left arm and left upper eyelid. She states she has a history of ptosis of the left eye but worse today. NIH was 3 secondary to mild upper extremity limb ataxia and a mild paralysis of the left upper eyelid. Initial CT scan was unremarkable. Lab work was otherwise unremarkable. She states she has a history of migraines currently on tramadol and has been on Depakote in the past. She states today's head pain feels very similar to her previous migraines. She has photophobia with 10/10 head pain. Denies worst headache of her life. Denies trauma. Currently on aspirin. Pulsating vision changes with normal visual acuity. No deviation of the eyes. She did have appropriate strength of the upper and lower extremities. Normal sensation throughout. She was given migraine cocktail with improvement of her symptoms of headache and weakness. Still had ptosis of the left upper eyelid. CT angio of the head and neck negative for any large vessel occlusions. Recommended MRI to rule out a potential stroke. She refused MRI. She states that since this happened yesterday there would be no intervention at this time. She is currently on aspirin and blood pressure medication. Discussed starting a statin. Which she states she will follow-up with her primary care physician. Cardiac work-up unremarkable. She was sinus bradycardia. Continue with conservative treatment for headache. If any worsening symptoms return back to ED for further evaluation. Patient had MRI in 2019 that showed multiple wall focal areas of hyperintense signal in the periventricular and subcortical white matter suggesting MS versus chronic microvascular disease. History of smoking, alcohol use. Focal enc ephalomalacia in the head of the left caudate suggesting of prior lacunar infarct. She denies history of MS. Recommend further evaluation with MRI. She states she does see a neurologist for her migraines. Provided neurology outpatient follow-up. Patient blood pressure continued to improve without intervention. She continued to be bradycardic currently asymptomatic. Impression Primary Impression: Headache Additional Impressions: Left arm numbness Ptosis, left eyelid Disposition: 01 HOME, SELF-CARE Condition: Stable Departure-Patient Inst. Decision time for Depature: 12:54 Referrals: [facility] (PCP) Primary Care Physician WALI MORROW (Family) Primary Care Physician Patient Instructions: Headache, Adult ED KENIA SOLANO Mar 30, 2022 11:20
[2022-03-30 11:24] LABS: BASOPHILS # (AUTO) 0.1 10^3/uL (0.0-0.1); BASOPHILS % (AUTO) 1 % (0-10); EOSINOPHILS # (AUTO) 0.1 10^3/uL (0.0-0.3); EOSINOPHILS % (AUTO) 2 % (0-10); HEMATOCRIT 46 % (35-52); LYMPHOCYTES # (AUTO) 2.2 10^3/uL (1.0-4.0); LYMPHOCYTES % (AUTO) 32 % (12-44); MEAN CORPUSCULAR HEMOGLOBIN 31 pg (25-34); MEAN CORPUSCULAR HGB CONC 35 g/dL (32-36); MEAN CORPUSCULAR VOLUME 91 fL (80-99); MEAN PLATELET VOLUME 9.1 fL (9.0-12.2); MONOCYTES # (AUTO) 0.4 10^3/uL (0.0-1.0); MONOCYTES % (AUTO) 6 % (0-12); NEUTROPHILS # (AUTO) 4.1 10^3/uL (1.8-7.8); NEUTROPHILS % (AUTO) 59 % (42-75); PLATELET COUNT 218 10^3/uL (130-400)
[2022-03-30] MEDS: PROCHLORPERAZINE 10 MG/2ML INJ (COMPAZINE) IV ONE (11:38)
[2022-03-30] MEDS: NS IV 1000 ML 1,000 ML IV STA (11:38)
[2022-03-30] MEDS: diphenhydrAMINE 50 MG/ML INJ (BENADRYL) IVP ONE (11:38)
[2022-03-30 11:39] LABS: ALBUMIN 4.7 GM/DL (3.2-4.5); CHLORIDE 105 MMOL/L (98-107); INR 0.9 (0.8-1.4); POTASSIUM 4.1 MMOL/L (3.6-5.0); PROTHROMBIN TIME PATIENT 12.1 SEC (12.2-14.7); SODIUM 139 MMOL/L (135-145)
--- NOTE | 2022-03-30 11:39 | Diagnostic Imaging Report ---
Indication: Headache and high blood pressure. Time of Exam: 11:33 AM Correlation is made with prior chest from 10/20/2021. The heart size is normal. The lungs are clear of acute infiltrates. There is linear scarring or atelectasis in the left lung base and right base. There is no effusion or pneumothorax. There are postoperative changes of the lower cervical spine. IMPRESSION: No acute cardiopulmonary process is detected. Dictated by: Dictated on workstation # [id number]
[2022-03-30 11:40] LABS: CALCIUM 9.7 MG/DL (8.5-10.1)
--- NOTE | 2022-03-30 11:40 | Diagnostic Imaging Report ---
PROCEDURE: CT head wo r/o stroke. TECHNIQUE: Multiple contiguous axial images were obtained through the brain without the use of intravenous contrast. Auto Exposure Controls were utilized during the CT exam to meet ALARA standards for radiation dose reduction. INDICATION: Hypertension and headache. COMPARISON is made with prior head CT 01/21/2020. Ventricular size and sulcal pattern are stable. Periventricular white matter changes appear similar to prior study. There is no sulcal effacement or midline shift. No acute intra-axial or extra-axial hemorrhage is detected. Cisterns are patent. Visualized paranasal sinuses are clear. IMPRESSION: Changes of chronic microvascular ischemia. No acute intracranial process is detected. Dictated by: Dictated on workstation # [id number]
[2022-03-30 11:41] LABS: GLUCOSE 110 MG/DL (70-105)
[2022-03-30 11:42] LABS: TOTAL PROTEIN 7.5 GM/DL (6.4-8.2)
[2022-03-30 11:43] LABS: BILIRUBIN,TOTAL 0.7 MG/DL (0.1-1.0); CARBON DIOXIDE 20 MMOL/L (21-32)
[2022-03-30 11:45] LABS: ALKALINE PHOSPHATASE 125 U/L (40-136); GFR ESTIMATED 101
[2022-03-30 11:46] LABS: BUN/CREATININE RATIO 20
[2022-03-30 11:48] LABS: ALANINE AMINOTRANSFERASE 17 U/L (0-55)
[2022-03-30 11:49] LABS: BILIRUBIN,URINE NEGATIVE (NEGATIVE); CLARITY,URINE CLEAR; COLOR,URINE YELLOW; GLUCOSE, URINE (UA) NEGATIVE (NEGATIVE); KETONES,URINE NEGATIVE (NEGATIVE); LEUKOCYTE ESTERASE ,URINE NEGATIVE (NEGATIVE); NITRITE,URINE NEGATIVE (NEGATIVE); PROTEIN,URINE NEGATIVE (NEGATIVE)
[2022-03-30 12:02] LABS: BACTERIA,URINE TRACE /HPF; SQUAMOUS EPITHELIAL CELL,UR 0-2 /HPF; WBC,URINE RARE /HPF
[2022-03-30] MEDS: NS 100 ML (IVPB) BAG IV ONE (12:20)
[2022-03-30] MEDS: IOHEXOL 350 MG/ML 100 ML (OMNIPAQUE 350) VIAL IV ONE (12:20)
[2022-03-30] MEDS: KETOROLAC 30 MG/ML VIAL IVP ONE (12:32)
--- NOTE | 2022-03-30 12:37 | Diagnostic Imaging Report ---
PROCEDURE: CT angiography of the head and CT angiography of the neck with and without contrast. TECHNIQUE: Contiguous noncontrast images were obtained from the skull base through the vertex. After intravenous contrast administration, helical CT angiography of the neck was performed. Source data was reformatted into 3D MIP projections. Delayed post contrast acquisition was also obtained. Auto Exposure Controls were utilized during the CT exam to meet ALARA standards for radiation dose reduction. INDICATION: Headache with high blood pressure. COMPARISON: Noncontrast CT head from earlier same day. FINDINGS: No dissection within the aortic arch. The great vessels of the aortic arch are widely patent centrally. No occlusion or dissection within the common carotid arteries. Atherosclerotic plaquing is present in the carotid bulbs, but there is no stenosis of the proximal internal carotid arteries per NASCET criteria. The vertebral arteries are codominant and widely patent throughout the neck without dissection or stenosis. Lung apices are clear. No cervical lymphadenopathy. Thyroid may be surgically absent or atrophic. Airways widely patent. No acute fracture within cervical spine. Prior ACDF of C5-C6. Paranasal sinuses are clear. Mastoid air cells are clear. Orbits are normal. The distal internal carotid arteries are patent and without aneurysm. The M1 and M2 divisions of the middle cerebral arteries are patent. Anterior cerebral arteries are patent. There is no anterior communicating artery aneurysm. Basilar artery is widely patent and has no terminal aneurysm. Posterior cerebral arteries have conventional origin and are patent centrally. Dural venous sinuses are patent. No pathologic enhancement on delayed phase imaging. IMPRESSION: 1. No intracranial large vessel occlusion or saccular aneurysm. 2. Patent dural venous sinuses. 3. No arterial stenosis or occlusion within the major neck arteries. Dictated by: Dictated on workstation # [id number]
[2022-03-30] MEDS: fentaNYL INJ 100 MCG/2 ML AMP IVP STA (13:00)
[2022-03-30 13:23] VITALS: BP 137/88
== END 2022-03-30 13:23 | disposition home or self-care (01) ==
LOC: EDUNIT# 10:45 → ER 10:46
DX: H02.402 Unspecified ptosis of left eyelid (principal); R51.9 Headache, unspecified; R20.0 Anesthesia of skin; Z86.69 Personal history of other diseases of the nervous system and sense organs; Z86.73 Personal history of transient ischemic attack (TIA), and cerebral infarction without residual deficits; Z87.891 Personal history of nicotine dependence; Z79.82 Long term (current) use of aspirin
CPT/HCPCS: 36415; 70450; 70496; 70498; 71045; 80053; 81000; 82947; 84484; 85025; 85610; 85730; 93005

== ENCOUNTER → 2022-05-23 | Outpatient (CLI) | payer BC ==
--- NOTE | 2022-05-23 18:22 | Diagnostic Imaging Report ---
EXAMINATION: Cervical spine 4 views. HISTORY: Neck pain. COMPARISON: 02/17/2022. FINDINGS: There is instrumented fusion of C5-C6 anteriorly. Flexion and extension views were obtained and show no free motion of the fused segment. The alignment is normal and there is no listhesis with flexion or extension. Prevertebral spaces are normal. No acute fracture is seen. Vertebral body heights are normal. Remaining disc spaces are normal. IMPRESSION: 1. Unchanged anterior fusion of C5-C6 with no motion of the fused segment and no change in alignment with flexion or extension. Dictated by: Dictated on workstation # [id number]
== END ==
LOC: RAD 16:10
PROVIDERS: ATTEND Nurse Practitioner
DX: Z48.89 Encounter for other specified surgical aftercare (principal); M54.2 Cervicalgia; Z98.1 Arthrodesis status
CPT/HCPCS: 72050